=== PATIENT | female | born 1955 | race Caucasian/White ===

== ENCOUNTER 2020-03-19 11:28 | Outpatient (REF) | payer BC, SELFPAY | END 2020-03-19 11:29 | disposition home or self-care (01) | LOC: HO.LAB 11:28 | PROVIDERS: PCP Internal Medicine; Visit Provider Internal Medicine | DX: Z20.828 Contact with and (suspected) exposure to other viral communicable diseases (principal) | CPT/HCPCS: C9803; U0003 ==

== ENCOUNTER 2020-05-26 10:41 | Outpatient (REF) | payer BC, SELFPAY ==
--- NOTE | ~2020-05-26 | MM_ITS ---
EXAMINATION: BONE DENSITOMETRY CLINICAL INDICATION: Age-related osteoporosis without current pathological fracture. COMPARISON: Baseline BD dated 05/13/2014. TECHNIQUE: Using a [employer] DXA System (software version: 13.1) manufactured by [employer], dual-energy x-ray absorptiometry was performed of the lumbar spine and left hip. The images are of good technical quality. Summary results are attached. FINDINGS: AP SPINE L1-L4: Current: BMD 0.953 g/cm2, Z-score -0.3, T-score -1.9, osteopenia, 1.0% increase from baseline (<5% change is not significant). Baseline: BMD 0.944 g/cm2. LEFT FEMUR, NECK: Current: BMD 0.659 g/cm2, Z-score -1.2, T-score -2.7, osteoporosis. Baseline: BMD 0.736 g/cm2. LEFT FEMUR, TOTAL: Current: BMD 0.660 g/cm2, Z-score -1.5, T-score -2.8, osteoporosis, 5.2% decrease from baseline (<5% change is not significant). Baseline: BMD 0.696 g/cm2. IDENTIFIED RISK FACTORS: Height loss, low calcium intake, family history (parental hip fracture). Early menopause, secondary osteoporosis, hysterectomy, bilateral oophorectomy. HISTORY OF FRACTURE: None listed. MEDICATIONS: Vitamin D. MM/XR DEXA axial skeleton IMPRESSION: 1. DIAGNOSIS: Osteoporosis based on the lowest T-score value of -2.8 in the total femur applying World Health Organization criteria. 2. 10-YEAR FRACTURE RISK PREDICTION, FRAX: Major osteoporotic fracture (clinical spine, forearm, hip or shoulder) 23.3%. Hip fracture 3.5%. 3. Treatment Recommendations: NOF guidelines recommend consideration for treatment in postmenopausal women and men age 50 and older presenting with the following: -A hip or vertebral (clinical or morphometric) fracture. -T-score less than or equal to -2.5 at the femoral neck or spine after appropriate evaluation to exclude secondary causes. -Low bone mass at the hip or spine and a 10-year fracture probability by FRAX of greater than or equal to 3% for hip fracture or greater than or equal to 20% for major osteoporotic fracture based on the [place] adapted WHO algorithm. 4. Other Recommendations: All treatment decisions require clinical judgment and consideration of individual patient factors, including patient preferences, comorbidities, previous drug use, risk factors not captured in the FRAX model (e.g. frailty, falls, vitamin D deficiency, increased bone turnover, interval significant decline in bone density) and possible under or overestimation of fracture risk by FRAX. Additional medical evaluation for secondary cause of low bone mineral density may be appropriate. FUTURE SCAN RECOMMENDATION: People with diagnosed cases of osteoporosis or at high risk for fracture should have regular bone mineral density tests. For patients eligible for Medicare, routine testing is allowed once every 2 years. The testing frequency can be increased to one year for patients who have rapidly progressing disease, those who are receiving or discontinuing medical therapy to restore bone mass, or have additional risk factors.
== END 2020-05-26 10:42 | disposition home or self-care (01) ==
LOC: HO.MAMMO 10:41
PROVIDERS: PCP Internal Medicine; Visit Provider Internal Medicine
DX: M81.0 Age-related osteoporosis without current pathological fracture (principal); E58 Dietary calcium deficiency; Z78.0 Asymptomatic menopausal state; Z90.710 Acquired absence of both cervix and uterus; Z90.722 Acquired absence of ovaries, bilateral
CPT/HCPCS: 77080

== ENCOUNTER 2020-10-27 13:53 | Outpatient (REF) | payer BC, SELFPAY ==
--- NOTE | ~2020-10-27 | XR_ITS ---
EXAMINATION: XR KNEE, RIGHT CLINICAL INFORMATION: Pain in the right knee. COMPARISON: None TECHNIQUE: Three views of the right knee. FINDINGS: Likely postsurgical change of the anterior tibial tubercle with defined defect of the anterior cortex with a osteosclerotic margins. No acute abnormality. No fracture or dislocation. The patellofemoral and the femoral tibial joints are normal. There is no joint effusion. There are no soft tissue calcifications. XR/XR knee RT 2V IMPRESSION: Normal right knee.
--- NOTE | ~2020-10-27 | XR_ITS ---
EXAMINATION: XR CHEST CLINICAL INFORMATION: Mild intermittent asthma COMPARISON: None TECHNIQUE: 2 views of the chest were obtained. FINDINGS: No significant abnormality is noted involving the heart, lungs, mediastinum, bony thorax or soft tissues. XR/XR chest 2V IMPRESSION: Unremarkable examination.
[2020-10-27 15:11] LABS: MANUAL DIFF FLAG NO
[2020-10-27 15:18] LABS: Basophils Percent Auto 0.5 % (0-2); Eosinophils Absolute Auto 0.1 X10*3/uL (0.0-0.4); Eosinophils Percent Auto 1.1 % (0-4); Hematocrit 41.2 % (37-47); Hemoglobin 13.6 g/dl (12.0-16.0); Imm Gran Abs Auto 0.01 X10*3/uL (0.00-0.03); Imm Gran Pct Auto 0.2 % (0.0-0.4); Lymphocytes Absolute Auto 1.5 X10*3/uL (1.2-4.9); Lymphocytes Percent Auto 27.3 % (20-40); Mean Corpuscular Hemoglobin 32.4 pg (27.0-33.0); Mean Corpuscular Volume 98.1 fL (80-98); Mean Platelet Volume 11.2 fL (9.4-12.3); Monocytes Absolute Auto 0.5 X10*3/uL (0.1-1.2); Monocytes Percent Auto 8.5 % (2-11); Neutrophils Absolute Auto 3.5 X10*3/uL (2.0-8.3); Neutrophils Percent Auto 62.4 % (45-73); Platelet Count 285 X10*3/uL (160-400); Red Cell Distribution Width 12.1 % (11.0-16.0); White Blood Count 5.6 X10*3/uL (4.8-10.8)
[2020-10-27 15:27] LABS: Glucose Urine UA NEG (NEG); Leukocyte Esterase Urine NEG (NEG); Nitrite Urine NEG (NEG); Specific Gravity - Urine >= 1.030 (1.005-1.025); Urine Blood NEG (NEG); Urine Ketones NEG (NEG); Urine Protein NEG (NEG-TRACE)
[2020-10-27 15:33] LABS: Appearance Urine HAZY; Color Urine YELLOW
[2020-10-27 15:39] LABS: Bacteria Urine TRACE /LPF; Mucus Urine TRACE /LPF; RBC Urine 0 /HPF (0); Squamous Epithelial Cell Urine 1+ /LPF; WBC Urine 0 /HPF (0-4)
[2020-10-27 15:40] LABS: Urine Talc Crystals 3+ /LPF
[2020-10-27 16:08] LABS: Folate 11.5 ng/mL (> or = 4.0); Vitamin B12 274 pg/mL (200-900)
== END 2020-10-27 13:54 | disposition home or self-care (01) ==
LOC: HO.LAB 13:53
PROVIDERS: PCP Internal Medicine; Visit Provider Internal Medicine
DX: J45.20 Mild intermittent asthma, uncomplicated (principal); M25.561 Pain in right knee; M81.0 Age-related osteoporosis without current pathological fracture; E78.00 Pure hypercholesterolemia, unspecified
CPT/HCPCS: 36415; 71046; 73560; 81001; 82607; 82746; 85025

== ENCOUNTER 2020-11-06 08:38 | Outpatient (REF) | payer BC, SELFPAY ==
[2020-11-06 10:02] LABS: Alanine Aminotransferase 19 U/L (0-31); Albumin Level 4.4 g/dL (3.5-5.0); Alkaline Phosphatase 78 U/L (39-117); Anion Gap 14 (12-20); Aspartate Amino Transferase 18 U/L (5-31); Bilirubin Total 0.7 mg/dL (0.0-1.0); Blood Urea Nitrogen 18 mg/dL (9-16); Carbon Dioxide 29 mmol/L (22-29); Chloride 106 mmol/L (96-108); Cholesterol 212 mg/dL; Estimated Glomerular Filt Rate > 60; Glucose Random 88 mg/dL (60-115); HDL Cholesterol 80 mg/dL; LDL Cholesterol Calculated 122 mg/dl; Potassium 4.5 mmol/L (3.3-5.1); Sodium 144 mmol/L (135-145); Total Protein 6.5 g/dL (6.5-8.0); Triglycerides 54 mg/dL
[2020-11-06 10:23] LABS: Free T4 (Free Thyroxine) 0.89 ng/dL (0.71-1.85); Thyroid Stimulating Hormone 0.58 uIU/mL (0.32-4.0); Vitamin D 25-OH Total 78.8 ng/mL (>30)
== END 2020-11-06 08:39 | disposition home or self-care (01) ==
LOC: HO.LAB 08:38
PROVIDERS: PCP Internal Medicine; Visit Provider Internal Medicine
DX: M81.0 Age-related osteoporosis without current pathological fracture (principal); E78.00 Pure hypercholesterolemia, unspecified
CPT/HCPCS: 36415; 80053; 80061; 82306; 84439; 84443

== ENCOUNTER 2020-12-01 12:30 | Outpatient (REF) | payer BC, SELFPAY ==
--- NOTE | 2020-12-01 | PFT_ITS ---
FLOWS: FEV1 90% of predicted at 2.46 L. FVC 88% of predicted at 3.14 L. FEV1 to FVC ratio of 0.78. Positive bronchodilator response. LUNG VOLUMES: Total lung capacity 102% of predicted at 5.63 L. Residual volume 123% of predicted at 2.75 L. Slow vital capacity 88% of predicted at 2.89 L. Expiratory reserve volume 89% of predicted at 0.82 L. Diffusion capacity is moderately decreased. IMPRESSION: No obstructive or restrictive ventilatory defect. Positive bronchodilator response. Increased residual volume suggests underlying air trapping. Decreased diffusion capacity suggests emphysema. MD VISHNU Sparks/MODL / [id number]
== END 2020-12-01 12:31 | disposition home or self-care (01) ==
LOC: HO.RESP 12:30
PROVIDERS: PCP Internal Medicine; Visit Provider Internal Medicine
DX: J45.20 Mild intermittent asthma, uncomplicated (principal)
CPT/HCPCS: 94060; 94727; 94729

== ENCOUNTER 2021-04-22 12:11 | Outpatient (REF) | payer BC, SELFPAY ==
--- NOTE | ~2021-04-22 | XR_ITS ---
EXAMINATION: XR CHEST CLINICAL INFORMATION: COPD COMPARISON: 10/27/2020 TECHNIQUE: 2 views of the chest were obtained. FINDINGS: Lungs are hyperinflated. No parenchymal consolidation. No pleural effusion. No pneumothorax. Cardiomediastinal silhouette and pulmonary vascularity are within normal limits. No acute osseous abnormalities. XR/XR chest 2V IMPRESSION: No acute findings. Hyperinflated lungs suggestive of emphysema/COPD.
== END 2021-04-22 12:12 | disposition home or self-care (01) ==
LOC: HO.XRAY 12:11
PROVIDERS: PCP Internal Medicine; Visit Provider Internal Medicine
DX: J44.9 Chronic obstructive pulmonary disease, unspecified (principal)
CPT/HCPCS: 71046

== ENCOUNTER 2021-11-08 08:33 | Outpatient (REF) | payer MEDICARE, SELFPAY ==
[2021-11-08 10:39] LABS: MANUAL DIFF FLAG NO
[2021-11-08 10:46] LABS: Basophils Percent Auto 0.9 % (0-2); Eosinophils Absolute Auto 0.2 X10*3/uL (0.0-0.4); Eosinophils Percent Auto 4.6 % (0-4); Hematocrit 40.5 % (37.0-47.0); Hemoglobin 13.5 g/dl (12.0-16.0); Imm Gran Abs Auto 0.01 X10*3/uL (0.00-0.03); Imm Gran Pct Auto 0.2 % (0.0-0.4); Lymphocytes Absolute Auto 1.4 X10*3/uL (1.2-4.9); Lymphocytes Percent Auto 30.1 % (20-40); Mean Corpuscular HGB Conc 33.3 g/dl (31.0-35.0); Mean Corpuscular Hemoglobin 32.5 pg (27.0-33.0); Mean Corpuscular Volume 97.6 fL (80.0-98.0); Mean Platelet Volume 11.7 fL (9.4-12.3); Monocytes Absolute Auto 0.4 X10*3/uL (0.1-1.2); Monocytes Percent Auto 7.9 % (2-11); Neutrophils Absolute Auto 2.6 x10*3/uL (2.0-8.3); Neutrophils Percent Auto 56.3 % (45-73); Platelet Count 250 X10*3/uL (160-400); Red Blood Count 4.15 X10*6/uL (4.20-5.50); Red Cell Distribution Width 12.2 % (11.0-16.0); White Blood Count 4.6 X10*3/uL (4.8-10.8)
[2021-11-08 11:03] LABS: Alanine Aminotransferase 15 U/L (0-31); Albumin Level 4.1 g/dL (3.5-5.0); Alkaline Phosphatase 77 U/L (39-117); Anion Gap 13 (12-20); Aspartate Amino Transferase 17 U/L (5-31); Bilirubin Total 0.8 mg/dL (0.0-1.0); Blood Urea Nitrogen 25 mg/dL (9-16); Calcium 9.4 mg/dL (8.4-10.2); Carbon Dioxide 29 mmol/L (22-29); Chloride 105 mmol/L (96-108); Cholesterol 191 mg/dL; Estimated Glomerular Filt Rate > 60; Glucose Random 98 mg/dL (60-115); HDL Cholesterol 76 mg/dL; LDL Cholesterol Calculated 105 mg/dl; Potassium 4.5 mmol/L (3.3-5.1); Sodium 142 mmol/L (135-145); Total Protein 6.4 g/dL (6.5-8.0); Triglycerides 54 mg/dL
[2021-11-08 11:16] LABS: Free T4 (Free Thyroxine) 0.82 ng/dL (0.71-1.85); Thyroid Stimulating Hormone 0.87 uIU/mL (0.32-4.0); Vitamin D 25-OH Total 62.7 ng/mL (>30)
[2021-11-08 11:29] LABS: Folate 13.4 ng/mL (> or = 4.0); Vitamin B12 275 pg/mL (200-900)
== END 2021-11-08 08:34 | disposition home or self-care (01) ==
LOC: HO.10HDL 08:33
PROVIDERS: Visit Provider Internal Medicine
DX: J44.9 Chronic obstructive pulmonary disease, unspecified (principal); E78.00 Pure hypercholesterolemia, unspecified
CPT/HCPCS: 36415; 80053; 80061; 82306; 82607; 82746; 84439; 84443; 85025

== ENCOUNTER 2021-12-01 13:48 | Outpatient (REF) | payer MEDICARE, SELFPAY ==
--- NOTE | ~2021-12-01 | XR_ITS ---
EXAMINATION: XR LUMBOSACRAL SPINE CLINICAL INFORMATION: Low back pain COMPARISON: Previous x-ray most recent October 2019 TECHNIQUE: Three views of the lumbosacral spine. FINDINGS: Bone alignment is normal. No fracture or dislocation is seen. There is mild degenerative spondylosis at L2-L3. Disc spaces are normal. There is lower lumbar spine facet arthritis. There is evidence of atherosclerotic disease. XR/XR lumbar spine 2-3V IMPRESSION: Degenerative changes.
== END 2021-12-01 13:49 | disposition home or self-care (01) ==
LOC: HO.XRAY 13:48
PROVIDERS: PCP Internal Medicine; Visit Provider Internal Medicine
DX: M54.50 Low back pain, unspecified (principal)
CPT/HCPCS: 72100

== ENCOUNTER 2022-06-27 10:39 | Outpatient (REF) | payer MEDICARE, SELFPAY ==
--- NOTE | ~2022-06-27 | MM_ITS ---
EXAMINATION: BONE DENSITOMETRY CLINICAL INDICATION: Age-related osteoporosis without current pathological fracture. COMPARISON: Previous BD dated 05/26/2020 and baseline BD dated 05/13/2014. TECHNIQUE: Using a [employer] DXA System (software version: 13.1) manufactured by [employer], dual-energy x-ray absorptiometry was performed of the lumbar spine and left hip. The images are of good technical quality. Summary results are attached. FINDINGS: AP SPINE L1-L4: Current: BMD 0.962 g/cm2, Z-score 0.0, T-score -1.8, osteopenia, 0.9% increase from previous, 1.9% increase from baseline (<5% change is not significant). Prior: BMD 0.953 g/cm2. Baseline: BMD 0.944 g/cm2. LEFT FEMUR, NECK: Current: BMD 0.707 g/cm2, Z-score -0.7, T-score -2.4, osteopenia. Prior: BMD 0.659 g/cm2. Baseline: BMD 0.736 g/cm2. LEFT FEMUR, TOTAL: Current: BMD 0.660 g/cm2, Z-score -1.4, T-score -2.8, osteoporosis, 0.0% no change from previous, 5.2% decrease from baseline (<5% change is not significant). Prior: BMD 0.660 g/cm2. Baseline: BMD 0.696 g/cm2. IDENTIFIED RISK FACTORS: Early menopause, secondary osteoporosis, bilateral oophorectomy, hysterectomy, osteoporosis. HISTORY OF FRACTURE: None listed. MEDICATIONS: Vitamin D, ERT/SERMS. MM/XR DEXA axial skeleton IMPRESSION: 1. DIAGNOSIS: Osteoporosis based on the lowest T-score value of -2.8 in the total femur applying World Health Organization criteria. 2. 10-YEAR FRACTURE RISK PREDICTION, FRAX: According to the guidelines, FRAX calculation should only be performed on patients in the osteopenia bone density category. Therefore, FRAX was not performed on this patient. 3. Treatment Recommendations: NOF guidelines recommend consideration for treatment in postmenopausal women and men age 50 and older presenting with the following: -A hip or vertebral (clinical or morphometric) fracture. -T-score less than or equal to -2.5 at the femoral neck or spine after appropriate evaluation to exclude secondary causes. -Low bone mass at the hip or spine and a 10-year fracture probability by FRAX of greater than or equal to 3% for hip fracture or greater than or equal to 20% for major osteoporotic fracture based on the [place] adapted WHO algorithm. 4. Other Recommendations: All treatment decisions require clinical judgment and consideration of individual patient factors, including patient preferences, comorbidities, previous drug use, risk factors not captured in the FRAX model (e.g. frailty, falls, vitamin D deficiency, increased bone turnover, interval significant decline in bone density) and possible under or overestimation of fracture risk by FRAX. Additional medical evaluation for secondary cause of low bone mineral density may be appropriate. FUTURE SCAN RECOMMENDATION: People with diagnosed cases of osteoporosis or at high risk for fracture should have regular bone mineral density tests. For patients eligible for Medicare, routine testing is allowed once every 2 years. The testing frequency can be increased to one year for patients who have rapidly progressing disease, those who are receiving or discontinuing medical therapy to restore bone mass, or have additional risk factors.
== END 2022-06-27 10:40 | disposition home or self-care (01) ==
LOC: HO.MAMMO 10:39
PROVIDERS: Visit Provider Internal Medicine
DX: Z13.820 Encounter for screening for osteoporosis (principal); M81.0 Age-related osteoporosis without current pathological fracture; Z78.0 Asymptomatic menopausal state
CPT/HCPCS: 77080

== ENCOUNTER 2022-08-05 11:00 | Outpatient (RCR) | payer MEDICARE, SELFPAY ==
--- NOTE | 2022-07-06 11:47 | MHC.PT.EP ---
[facility] [place] Office [place] Office [place] Office [address] Juancarlos Joaquin [address] [phone] F: [phone] F: [phone] F: [phone] F: [phone] Physical Therapy Plan of Care Date of Evaluation: Date of Surgery: NA Diagnosis: Low back pain Assessment: Gillian is a 66 year old female who is referred to PT for low back pain . She reports of having h/o chronic back pain which has gotten worse recently over the last 1 year. She also has h/o frequent falls but has not had any fractures. On PT examination she reports of having 6/10 pain with standing, walking and SL, pain in low back and B LE, no TTP, decreased lumbar ROM, decreased core and B LE strength, altered posture and gait. She lives with her and is independent with all ADLS but takes rest beaks. She is retired. She would benefit from skilled PT to address the aforementioned impairments and improve tolerance to functional activities. Frequency and Duration: The patient will be seen 2/week for 5 weeks Short Term Goals: 1. Pt will have 50% decrease in pain which will enable her to tolerate sitting for more than 1 hour and SL positions in 2 weeks. 2. Pt will present with all trunk ROM WFL which will enable her to dress her lower body without pain in 3 weeks. 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 Pt will demonstrate an increase in muscle strength in B LE and core which will enable to tolerate standing and walking for an hour with a pain no more than 2/10 in 5 weeks. 2. Pt will be independent with [facility] for symptom management and maintenance following d/c in 6 weeks. Treatment Plan: Modalities to reduce pain, spasms and effusion. Manual therapy to restore motion and function. Therapeutic exercise to improve strength and flexibility. Neuromuscular re-education for posture and balance. Therapeutic activities to return to functional activities of daily living. Electronically signed by: Uzma Roberson PT DPT Please sign and return to therapist. Thank you for your referral.
--- NOTE | 2022-08-17 09:43 | MHC.PT.DC ---
[facility] [place] Office [place] Office [place] Office [address] Juancarlos Joaquin [address] [phone] F: [phone] F: [phone] F: [phone] F: [phone] Physical Therapy Discharge Report Diagnosis: Low back pain Date of Surgery: NA Date of Evaluation: 07/06/22 Date of Discharge: 08/17/22 Treatments to Date: 9 Cancellations to Date: 0 No Shows to Date: 0 Discharge Status: Achieved Goals Improved Function Independent with HEP Discharge Summary: Gillian has completed 9 PT visits. She has achieved all goals set for her and independent with all HEP. She is therefore being d/c from PT. Electronically signed by: Uzma Roberson, PT DPT Please sign and return to therapist. Thank you for your referral.
== END 2022-08-17 09:44 | disposition home or self-care (01) ==
LOC: HO.PT 11:00
PROVIDERS: PCP Internal Medicine; Visit Provider Internal Medicine
DX: M54.50 Low back pain, unspecified (principal)
CPT/HCPCS: 97110; 97112; 97161

== ENCOUNTER 2022-11-22 08:44 | Outpatient (REF) | payer OTHER, SELFPAY ==
[2022-11-22 10:58] LABS: MANUAL DIFF FLAG NO
[2022-11-22 11:03] LABS: Basophils Percent Auto 0.8 % (0-2); Eosinophils Absolute Auto 0.1 X10*3/uL (0.0-0.4); Eosinophils Percent Auto 2.6 % (0-4); Hematocrit 41.4 % (37.0-47.0); Hemoglobin 13.6 g/dl (12.0-16.0); Imm Gran Abs Auto 0.02 X10*3/uL (0.00-0.03); Imm Gran Pct Auto 0.4 % (0.0-0.4); Lymphocytes Absolute Auto 1.5 X10*3/uL (1.2-4.9); Lymphocytes Percent Auto 29.7 % (20-40); Mean Corpuscular HGB Conc 32.9 g/dl (31.0-35.0); Mean Corpuscular Hemoglobin 32.8 pg (27.0-33.0); Mean Corpuscular Volume 99.8 fL (80.0-98.0); Mean Platelet Volume 11.4 fL (9.4-12.3); Monocytes Absolute Auto 0.3 X10*3/uL (0.1-1.2); Monocytes Percent Auto 6.2 % (2-11); Neutrophils Percent Auto 60.3 % (45-73); Platelet Count 289 X10*3/uL (160-400); Red Blood Count 4.15 X10*6/uL (4.20-5.50); Red Cell Distribution Width 12.5 % (11.0-16.0)
[2022-11-22 11:26] LABS: Alanine Aminotransferase 14 U/L (0-31); Albumin Level 4.2 g/dL (3.5-5.0); Alkaline Phosphatase 76 U/L (39-117); Anion Gap 10 (12-20); Aspartate Amino Transferase 18 U/L (5-31); Bilirubin Total 0.7 mg/dL (0.0-1.0); Blood Urea Nitrogen 20 mg/dL (9-16); Calcium 9.4 mg/dL (8.4-10.2); Carbon Dioxide 30 mmol/L (22-29); Chloride 107 mmol/L (96-108); Estimated Glomerular Filt Rate > 60; Glucose Random 90 mg/dL (60-115); Iron 123 mcg/dL (30-160); Percent Iron Saturation 48 % (15-50); Potassium 4.2 mmol/L (3.3-5.1); Sodium 143 mmol/L (135-145); Total Iron Binding Capacity 256 mcg/dL (228-428); Total Protein 6.6 g/dL (6.5-8.0); Unsaturated Iron Binding 133 ug/dL
[2022-11-22 11:45] LABS: Free T4 (Free Thyroxine) 0.88 ng/dL (0.71-1.85); Thyroid Stimulating Hormone 0.87 uIU/mL (0.32-4.0); Vitamin D 25-OH Total 77.5 ng/mL (>30)
[2022-11-22 11:56] LABS: Folate 13.7 ng/mL (> or = 4.0); Vitamin B12 623 pg/mL (200-900)
== END 2022-11-22 08:45 | disposition home or self-care (01) ==
LOC: HO.10HDL 08:44
PROVIDERS: Visit Provider Internal Medicine
DX: F32.9 Major depressive disorder, single episode, unspecified (principal); M81.0 Age-related osteoporosis without current pathological fracture
CPT/HCPCS: 36415; 80053; 82306; 82607; 82746; 83540; 84439; 84443; 85025

== ENCOUNTER 2022-11-25 11:29 | Outpatient (AMB) | payer OTHER, SELFPAY ==
[2022-11-25 11:32] VITALS: BP 120/62; PULSE 63; O2SAT 99; BMI 20.4
--- NOTE | 2022-11-25 11:32 | A.OFFPC_ITS ---
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 Required: No Allergies No Known Allergies Allergy (Verified 11/25/22 11:33) Tobacco use date assessed: 11/25/22 Fall risk assessment: No Falls in past year Last assessed Fall Risk: 11/25/22 Dental Screening Dental Screen Date: 11/25/22 Did you have a dental visit in the last 12 months?: Yes Did you have a dental problem in the last 6 months where you did not have access to dental care?: No Was dental information given to patient?: Patient has dentist [facility] Medical History (Updated 11/25/22 @ 12:16 by Olga Lidia Olivo MD) Asthma Lumbar degenerative disc disease Plantar wart Breast cancer Depression Surgical History History of foot surgery History of knee surgery History of right mastectomy History of total abdominal hysterectomy and bilateral salpingo-oophorectomy Family History (Updated 05/24/22 @ 12:47 by Kirstin Donis [facility]) Father Dementia Mother Breast cancer COPD (chronic obstructive pulmonary disease) Brother Depression Substance abuse Sister Depression Other Mental illness in member of household Substance abuse in family Social History (Updated 05/24/22 @ 13:09 by Olga Lidia Olivo MD) Housing: Apartment Alcohol intake: current Alcohol intake frequency: a few times a week Alcohol type: hard liquor Patient Tobacco Use Status: Tobacco use Unknown Tobacco use type: Cigarette Years Smoked: 1997 quit e-Cigarette/Vaping Use: Never Used Second Hand Smoke Exposure: No service: No Current occupational status: retired Cognitive needs: No Hearing needs: No Vision needs: Yes Questionnaire Thrive Questionnaire Date Thrive assessed: 05/24/22 AUDIT C Alcohol Use Questionnaire (AUDIT-C) 1. How often do you have a drink containing alcohol?: 4 or more times a week 2. How many drinks containing alcohol do you have on a typical day when you are drinking?: 1 or 2 3. How often do you have six or more drinks on one occasion?: Less than monthly Total Score: 5 KAREN-7 AMB Questionnaire KAREN-7 Date KAREN - 7 assessed: 05/24/22 Source: Developed by Drs. Prasanna Christine, Janina Esquivel, Curtis Wilkinson and colleagues, with an educational jayjay from [employer]. Physical exam (Primary Care) Vital Signs: Last Vital Signs Pulse 63 11/25/22 11:32 BP 120/62 11/25/22 11:32 Pulse Ox 99 11/25/22 11:32 Oxygen Delivery Method Room Air 11/25/22 11:32 BMI result Body Mass Index 20.4 Tobacco/Smoking Status: Tobacco use Status Tobacco use date assessed 11/25/22 11/25/22 11:35 Patient Tobacco Use Status Tobacco use Unknown 11/25/22 11:36 Tobacco use type Cigarette 11/25/22 11:35 e-Cigarette/Vaping Use Never Used 11/25/22 11:35 Thrive Assessment: Date of Thrive Assessment Date Thrive assessed 05/24/22 11/25/22 11:35 Assessment and Plan Assessment & Plan (1) Osteoporosis: Comment: May 2020, June 2022 Code(s): M81.0 - Age-related osteoporosis without current pathological fracture Qualifiers: Osteoporosis type: age-related Presence of current pathological fracture: without current pathological fracture Qualified Code(s): M81.0 - Age- related osteoporosis without current pathological fracture Plan: Bone density stable (2) Breast cancer: Comment: Right mastectomy 2007 [facility] February 2022 mammogram Code(s): C50.919 - Malignant neoplasm of unspecified site of unspecified female breast Qualifiers: Breast location: unspecified site of breast Estrogen receptor status: unspecified Patient sex: female Laterality: right Qualified Code(s): C50.911 - Malignant neoplasm of unspecified site of right female breast Plan: February mammogram. (3) Depression: Comment: Dr. Bhavna chavira Code(s): F32.9 - Major depressive disorder, single episode, unspecified Plan: Continue to follow-up with counseling and therapy (4) COPD (chronic obstructive pulmonary disease): Code(s): J44.9 - Chronic obstructive pulmonary disease, unspecified Plan: Patient on albuterol and use as needed. (5) Leg weakness: Code(s): R29.898 - Other symptoms and signs involving the musculoskeletal system Orders: Orders NE electromyogram (EMG) Today R29.898 - Other symptoms and signs involving the musculoskeletal system XR lumbar spine 2-3V Today R29.898 - Other symptoms and signs involving the musculoskeletal system NE nerve conduction velocity Today R29.898 - Other symptoms and signs involving the musculoskeletal system Erythrocyte Sedimentation Rate Today R29.898 - Other symptoms and signs involving the musculoskeletal system C Reactive Protein Today R29.898 - Other symptoms and signs involving the musculoskeletal system Coding Level of Care Code Est Pt Level 4 (07091) Diagnoses Age-related osteoporosis without current pathological fracture M81.0 Osteoporosis type: age-related Presence of current pathological fracture: without current pathological fracture Malignant neoplasm of right female breast, unspecified estrogen receptor status, unspecified site of breast C50.911 Breast location: unspecified site of breast Estrogen receptor status: unspecified Patient sex: female Laterality: right Depression F32.9 COPD (chronic obstructive pulmonary disease) J44.9 Leg weakness R29.898
== END 2022-11-25 12:22 | disposition home or self-care (01) ==
PROVIDERS: PCP Internal Medicine; Visit Provider Internal Medicine
DX: M81.0 Age-related osteoporosis without current pathological fracture (principal); C50.911 Malignant neoplasm of unspecified site of right female breast; F33.9 Major depressive disorder, recurrent, unspecified; J44.9 Chronic obstructive pulmonary disease, unspecified; R29.898 Other symptoms and signs involving the musculoskeletal system
CPT/HCPCS: 99214

== ENCOUNTER 2022-12-22 13:57 | Outpatient (REF) | payer OTHER, SELFPAY ==
--- NOTE | ~2022-12-22 | XR_ITS ---
EXAMINATION: XR LUMBOSACRAL SPINE CLINICAL INFORMATION: Other symptoms and signs involving the musculoskeletal system. COMPARISON: Radiographs dated 12/01/2021. TECHNIQUE: AP and lateral views of the lumbar spine and lateral view of the lumbosacral junction. FINDINGS: There is bony demineralization. Vertebral body heights and alignment are normal. The lumbar disc spaces are well-maintained. No acute fracture or spondylolisthesis is seen. There is multi-level mild lumbar spondylosis. The posterior elements are intact. There are aortoiliac atherosclerotic calcifications. XR/XR lumbar spine 2-3V IMPRESSION: 1. No acute fracture or spondylolisthesis is seen. 2. The lumbar disc spaces are well-maintained. 3. There is multi-level mild lumbar spondylosis.
[2022-12-22 15:24] LABS: C Reactive Protein 2.71 mg/dL (< or = 0.50)
[2022-12-22 15:54] LABS: Erythrocyte Sedimentation Rate 6 MM/HR (0-20)
== END 2022-12-22 13:58 | disposition home or self-care (01) ==
LOC: HO.NEURO 13:57
PROVIDERS: PCP Internal Medicine; Visit Provider Internal Medicine
DX: R29.898 Other symptoms and signs involving the musculoskeletal system (principal)
CPT/HCPCS: 36415; 72100; 85652; 86140; 95886; 95910

== ENCOUNTER → 2022-12-22 14:05 | Outpatient (BNV) | payer OTHER, SELFPAY | PROVIDERS: PCP Internal Medicine; Visit Provider Physical Medicine & Rehabilitation | DX: M54.17 Radiculopathy, lumbosacral region (principal) | CPT/HCPCS: 95886; 95910 ==

== ENCOUNTER 2023-02-01 08:45 | Outpatient (REF) | payer OTHER, SELFPAY ==
--- NOTE | ~2023-02-01 | MR_ITS ---
EXAMINATION: MR LUMBAR SPINE WITHOUT CONTRAST CLINICAL INFORMATION: Radiculopathy COMPARISON: Lumbar radiographs 12/22/2022 TECHNIQUE: MRI of the lumbar spine was obtained using routine sequences without contrast. FINDINGS: Straightening of the normal lumbar lordosis. No significant spondylolisthesis. Vertebral body heights are maintained. Diffusely somewhat heterogeneous marrow signal without suspicious osseous lesion. Multilevel disc desiccation with mild disc height loss most pronounced at L2-L3. Type I Modic endplate change eccentric to the left at L2-L3. Ventral disc osteophyte at L2-L3. Level by level detail as follows: L1-L2: Annular disc bulge with right central annular fissure and mild bilateral facet arthrosis. No spinal canal or neural foraminal stenosis. L2-L3: Annular disc bulge and mild bilateral facet arthrosis with ligamentum flavum thickening. Trace bilateral facet joint effusions. No spinal canal or neural foraminal stenosis. L3-L4: Annular disc bulge with right foraminal annular fissure and mild bilateral facet arthrosis with ligamentum flavum thickening and small bilateral facet joint effusions. No spinal canal stenosis. Minimal right without significant left neural foraminal encroachment. L4-L5: Annular disc bulge with right greater than left foraminal/lateral disc protrusions with associated annular fissuring and mild bilateral facet arthrosis with ligamentum flavum thickening. No spinal canal stenosis. Mild bilateral neural foraminal stenosis. L5-S1: Left greater than right facet arthrosis without spinal canal or neural foraminal stenosis. The conus medullaris terminates at the level of L1-L2. The distal spinal cord is normal in appearance. . No epidural fluid collection, hematoma, or mass. There is to moderate fatty atrophy of the paraspinal musculature. Partially imaged hepatomegaly. The abdominal aorta is of normal contour and caliber. MR/MR lumbar spine wo con IMPRESSION: 1. Mild lumbar spondylosis without evidence of high-grade spinal canal or neural foraminal stenosis at any level in the lumbar spine. 2. Multilevel annular fissures in the lumbar spine. 3. Partially imaged hepatomegaly.
== END 2023-02-01 08:46 | disposition home or self-care (01) ==
LOC: HO.MRI 08:45
PROVIDERS: PCP Internal Medicine; Visit Provider Internal Medicine
DX: M54.16 Radiculopathy, lumbar region (principal)
CPT/HCPCS: 72148

== ENCOUNTER 2023-03-17 09:41 | Outpatient (AMB) | payer OTHER, SELFPAY ==
[2023-03-17 09:51] VITALS: BP 120/78; PULSE 63; O2SAT 98
--- NOTE | 2023-03-17 09:51 | MHC.PC.OV ---
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 Last seen in November 2022. Up-to-date with bone density and colonoscopy. Patient complains of leg weakness and an MRI done showing mild lumbar spondylosis without evidence of spinal canal or neural foraminal stenosis multi level annual fissures in the lumbar spine and noted also hepatomegaly. Nerve conduction test showing chronic left L5-S1 radiculopathy but there is no evidence of peroneal neuropathy tibial neuropathy lumbosacral plexopathy or peripheral neuropathy. [facility] Medical History (Updated 03/17/23 @ 10:36 by Olga Lidia Olivo MD) Asthma Lumbar degenerative disc disease Plantar wart Breast cancer Depression Surgical History History of foot surgery History of knee surgery History of right mastectomy History of total abdominal hysterectomy and bilateral salpingo-oophorectomy Family History (Updated 05/24/22 @ 12:47 by Kirstin Donis CMA) Father Dementia Mother Breast cancer COPD (chronic obstructive pulmonary disease) Brother Depression Substance abuse Sister Depression Other Mental illness in member of household Substance abuse in family Social History (Updated 05/24/22 @ 13:09 by Olga Lidia Olivo MD) Housing: Apartment Alcohol intake: current Alcohol intake frequency: a few times a week Alcohol type: hard liquor Patient Tobacco Use Status: Tobacco use Unknown Tobacco use type: Cigarette Years Smoked: 1997 quit e-Cigarette/Vaping Use: Never Used Second Hand Smoke Exposure: No service: No Current occupational status: retired Cognitive needs: No Hearing needs: No Vision needs: Yes Questionnaire Thrive Questionnaire Date Thrive assessed: 05/24/22 AUDIT C Alcohol Use Questionnaire (AUDIT-C) 1. How often do you have a drink containing alcohol?: 4 or more times a week 2. How many drinks containing alcohol do you have on a typical day when you are drinking?: 1 or 2 3. How often do you have six or more drinks on one occasion?: Less than monthly Total Score: 5 KAREN-7 AMB Questionnaire KAREN-7 Date KAREN - 7 assessed: 05/24/22 Source: Developed by Drs. Prasanna Christine, Janina Esquivel, Curtis Wilkinson and colleagues, with an educational jayjay from [employer]. Physical exam (Primary Care) Vital Signs: Last Vital Signs Pulse 63 03/17/23 09:51 BP 120/78 03/17/23 09:51 Pulse Ox 98 03/17/23 09:51 Oxygen Delivery Method Room Air 03/17/23 09:51 BMI result Body Mass Index 20.0 Tobacco/Smoking Status: Tobacco use Status Tobacco use date assessed 03/17/23 03/17/23 09:56 Patient Tobacco Use Status Tobacco use Unknown 03/17/23 09:56 Tobacco use type Cigarette 03/17/23 09:56 e-Cigarette/Vaping Use Never Used 03/17/23 09:56 Thrive Assessment: Date of Thrive Assessment Date Thrive assessed 05/24/22 03/17/23 09:56 Const General: alert; No acute distress Eyes Conjunctivae: conjunctivae normal Resp Auscultation: clear to auscultation bilaterally Cardio Rate: regular rate Rhythm: regular rhythm GI Inspection: Yes normal to inspection Neuro Other: Patient is not able to stand up without using the arms. So concern about proximal muscle weakness Extrem General: Yes normal to inspection and No edema Assessment and Plan Assessment & Plan (1) Lumbar radiculopathy: Comment: 12/2022There is electrodiagnostic evidence for chronic left L5-S1 radiculopathy. 3. Cannot rule out a left acute L5-S1 radiculopathy. Code(s): M54.16 - Radiculopathy, lumbar region Plan: EMG done showing chronic left L5-S1 radiculopathy but MRI done negative (2) Leg weakness: Code(s): R29.898 - Other symptoms and signs involving the musculoskeletal system Plan: EMG showing chronic left L5-S1 radiculopathy (3) COPD (chronic obstructive pulmonary disease): Code(s): J44.9 - Chronic obstructive pulmonary disease, unspecified Plan: Continue with inhalers (4) Depression: Comment: Dr. Bhavna chavira Code(s): F32.9 - Major depressive disorder, single episode, unspecified Plan: Continue with counseling and therapy (5) Breast cancer: Comment: Right mastectomy 2007 [facility] February 2022 mammogram Code(s): C50.919 - Malignant neoplasm of unspecified site of unspecified female breast Qualifiers: Breast location: unspecified site of breast Estrogen receptor status: unspecified Patient sex: female Laterality: right Qualified Code(s): C50.911 - Malignant neoplasm of unspecified site of right female breast Plan: Reminded about mammogram (6) Lower extremity weakness: Code(s): R29.898 - Other symptoms and signs involving the musculoskeletal system Plan: work up not fruitful- EMG showing - radiculopathy but work MRI negative . will refer to rheumatology (7) Knee pain, right: Code(s): M25.561 - Pain in right knee Plan: R lateral knee pain- discussed about Voltaren gel to help with pain- if persist xray to do Orders: Referrals Rheumatology Referral R29.898 - Other symptoms and signs involving the musculoskeletal system Coding Level of Care Code Est Pt Level 4 (23294) Diagnoses Lumbar radiculopathy M54.16 Leg weakness R29.898 COPD (chronic obstructive pulmonary disease) J44.9 Depression F32.9 Malignant neoplasm of right female breast, unspecified estrogen receptor status, unspecified site of breast C50.911 Breast location: unspecified site of breast Estrogen receptor status: unspecified Patient sex: female Laterality: right Knee pain, right M25.561
== END 2023-03-17 10:39 | disposition home or self-care (01) ==
PROVIDERS: PCP Internal Medicine; Visit Provider Internal Medicine
DX: M54.16 Radiculopathy, lumbar region (principal); J44.9 Chronic obstructive pulmonary disease, unspecified; C50.911 Malignant neoplasm of unspecified site of right female breast; R29.898 Other symptoms and signs involving the musculoskeletal system; F32.9 Major depressive disorder, single episode, unspecified; M25.561 Pain in right knee
CPT/HCPCS: 99214

== ENCOUNTER 2023-03-30 10:43 | Outpatient (REF) | payer OTHER, SELFPAY | END 2023-03-30 10:44 | disposition home or self-care (01) | LOC: HO.XRAY 10:43 | PROVIDERS: PCP Internal Medicine; Visit Provider Internal Medicine | DX: Z13.89 Encounter for screening for other disorder (principal) ==

== ENCOUNTER 2023-03-31 10:22 | Outpatient (REF) | payer OTHER, SELFPAY ==
--- NOTE | ~2023-03-31 | XR_ITS ---
EXAMINATION: XR KNEE, RIGHT CLINICAL INFORMATION: Right knee pain COMPARISON: 10/27/2020 TECHNIQUE: Four views of the right knee. FINDINGS: Small suprapatellar effusion. Stable appearance of the bony structures with no fractures, dislocations or significant joint space narrowings. Alignment and articulations are maintained. XR/XR knee RT 2V IMPRESSION: Small right suprapatellar effusion. No acute bony pathology.
== END 2023-03-31 10:23 | disposition home or self-care (01) ==
LOC: HO.XRAY 10:22
PROVIDERS: PCP Internal Medicine; Visit Provider Internal Medicine
DX: M25.561 Pain in right knee (principal)
CPT/HCPCS: 73560

== ENCOUNTER 2023-04-11 12:19 | Outpatient (REF) | payer MEDICARE, SELFPAY ==
[2023-04-11 15:10] LABS: Rheumatoid Factor < 13.0 IU/mL (<15.0)
[2023-04-11 15:11] LABS: Uric Acid 5.2 mg/dL (2.4-5.7)
[2023-04-13 13:57] LABS: Cyclic Citrullinated Peptide <16 UNITS
[2023-04-13 19:57] LABS: SM/Ribonucleoprotein Ab <1.0 NEG AI (<1.0 NEG); Smith Protein <1.0 NEG AI (<1.0 NEG)
[2023-04-14 23:17] LABS: Aldolase 3.5 U/L (<=8.1)
[2023-04-18 11:19] LABS: Anti Nuclear Antibody Screen NEGATIVE (NEGATIVE)
== END 2023-04-11 12:20 | disposition home or self-care (01) ==
LOC: HO.LAB 12:19
PROVIDERS: PCP Internal Medicine; Visit Provider Nurse Practitioner Family
DX: M25.561 Pain in right knee (principal); R29.898 Other symptoms and signs involving the musculoskeletal system; M54.16 Radiculopathy, lumbar region; M25.461 Effusion, right knee; G89.29 Other chronic pain
CPT/HCPCS: 20610; 36415; 82085; 82550; 84550; 86038; 86200; 86235; 86431

== ENCOUNTER 2023-04-11 12:19 | Outpatient (AMB) | payer OTHER, SELFPAY ==
--- NOTE | 2023-04-11 12:24 | A.OFFVIS_ITS ---
Intake Vital Signs 04/11/23 12:25 04/11/23 14:51 Height 5 ft 7 in Weight 130 lb 15.273 oz BMI 20.5 20.5 BP 112/80 Blood Pressure Location Lt brachial Position Sitting Pulse 68 Pulse Source Pulse Oximeter Temp 97.0 F Temp Source Skin Pulse Oximetry (%) 98 Oxygen Delivery Method Room Air Intake Visit Reasons: Lower extremity weakness Intake Note: New patient, internally referred, presents today for lower extremity weakness. No prior renal medicine specialist c/o janessa leg pain, difficulty walking, weakness, stiffness, low back pain, feet pain, right knee pain Has tried PT. Manufacturing Quality Inspector Required: No Accompanied by: Self / Same As Patient Allergies No Known Allergies Allergy (Verified 04/11/23 12:24) HPI HPI Comments History of Present Illness Details Ms. Mccarty a 67 yoF referred by PCP for evaluation of lower extremity weakness and altered gait. Ms Benson has a history of Asthma, lower back pain and DDD, Right Breast Cancer with Mastectomy, Former smoker and Osteoporosis. She reports that over time and more noticeable in recent months she finds that it is challenging to walk at her normal pace. It feels as she has to drag her legs along. Whenever she enters the car she lifts them with her hands to put the legs inside because they feel heavy to lift automatically. She has done PT for her lower back pain which was helpful but she did not continue the exercises at home. She reports that whenever she sits she gets up with caution and steadies herself due to the stiffness she feels before moving off. Her joints do get loosened once she gets going. She also has complaints of right knee pain and swelling. She denies impact or injury to the knee. She denies knee locking or instability. She has seen a neurologist and did imaging such as Xray, MRI and an EMG study. She has also seen a Accounting Professional who diagnosed hammer toes. She denies upper body weakness, she can lift her arms without concerns. She denies SOB, difficulty swallowing. She denies Thyroid disease. Patient denies Raynaud's phenomenon, butterfly rash on face or other rashes; denies photosensitivity - getting sick or developing a rash from being out in the sun; denies blood or froth in urine; patient denies hx of SOB, chest pain. Patient denies hx of Carditis or Pleuritis. Patient denies any history of DVT/PE and does not take aspirin or a blood thinner. Denies fevers, excessive fatigue, unexplained weight-loss or weight-gain, Denies: thinning hair or hair loss. Denies: dry, itchy eyes, red burning eyes needing steroids to treat; dry mouth, mouth sores or ulcers; nose bleed; ringing in the ear, Denies abdominal pain, blood or mucous in stool; nausea, vomiting and diarrhea or heartburn. Denies morning stiffness lasting more than 20 mins. [facility] Medical History (Updated 04/11/23 @ 15:10 [facility] Swelling of right knee joint Asthma Lumbar degenerative disc disease Plantar wart Breast cancer Depression Surgical History History of right mastectomy History of knee surgery History of total abdominal hysterectomy and bilateral salpingo-oophorectomy History of foot surgery Family History (Updated 04/11/23 @ 12:36 by RAMON Leyva) Father Dementia Spinal stenosis Mother Breast cancer COPD (chronic obstructive pulmonary disease) Brother Depression Substance abuse Sister Depression Neuropathy Other Arthritis Mental illness in member of household Substance abuse in family Social History Housing: Apartment Alcohol intake: current Alcohol intake frequency: a few times a week Alcohol type: hard liquor Patient Tobacco Use Status: Tobacco use Unknown Tobacco use type: Cigarette Years Smoked: 1997 quit e-Cigarette/Vaping Use: Never Used Second Hand Smoke Exposure: No service: No Current occupational status: retired Cognitive needs: No Hearing needs: No Vision needs: Yes Female Reproductive History Menstrual Total pregnancies: 0 Review of Systems Const All systems reviewed & are unremarkable except as noted in HPI and below Physical Exam Vital Signs: Last Vital Signs Temp 97.0 F 04/11/23 12:25 Pulse 68 04/11/23 12:25 BP 112/80 04/11/23 12:25 Pulse Ox 98 04/11/23 12:25 Oxygen Delivery Method Room Air 04/11/23 12:25 BMI result Body Mass Index 20.5 APPEARANCE: Patient in no acute distress EYES no redness, pupils equal and reactive to light, eyelids normal EARS:? External ear normal, canal clear and tympanic membrane normal. NOSE/SINUS:? Airflow through both nares, no nasal discharge, no bleeding THROAT:? Oral mucosa moist, no ulcerations NECK:? No thyromegaly or masses, no adenopathy, trachea midline. HEART:? Regular rhythm, S1-S2 heard, no murmurs, rubs or gallops. LUNG:? Clear to percussion and auscultation ABD:? Normal bowel sounds, no organomegaly, masses or tenderness. EXTREMITIES:? No edema, no calf tenderness, normal peripheral pulses. Normal range of motion in joints throughout the body. No deformity or other signs of injury. Upper strength 5/5. Quad strength 4/5. Generalized decreased muscle tone NEURO:? Oriented and alert x3.? No focal weakness.? Reflexes symmetric.? Gait normal. SKIN:? There are no skin lesions evident. No objective signs of Raynaud's phe nomenon. JOINT EXAM: Cervical Spine:.? Full range of motion without pain; no tenderness. Thoracic Spine:.? No tenderness on palpation. Lumbar Spine:.? Full range of motion without pain, no tenderness. Chest Wall:.? No tenderness, swelling, increased warmth or erythema. Hands:.? Normal pain-free range of motion without tenderness, swelling, increased warmth or erythema. Able to make a full fist and has a good tutoring manager strength. Wrists:.? Normal pain-free range of motion without tenderness, swelling, increased warmth or erythema. Elbows:. Normal pain-free range of motion without tenderness, swelling, increased warmth or erythema. Shoulders:.?? Full range of motion without pain. No tenderness, weakness, swelling, increased warmth or erythema. Hips:.? Full range of motion without pain. Hip bursa:.? No tenderness. Knees:.?? Left: Normal pain-free range of motion without tenderness, swelling, increased warmth or erythema.? Right: There is joint swelling and warmth Ankles:.? Normal pain-free range of motion without tenderness, swelling, increased warmth or erythema. Feet:.? Normal pain-free range of motion without tenderness, swelling, increased warmth or erythema. Bilateral hammer toes. Pes Planus L>R Office Procedures Joint Injection/Drain Joint Injection/Drain Primary Site: right knee Prep: site was prepped using aseptic technique Injected: 80 mg of, with 1 mL of, 1% plain lidocaine and in the joint Approach Used: anteromedial Procedure: The patient tolerated the procedure well Coding 72489 - Large joint Procedure code (CPT) selection complete Assessment & Plan Assessment & Plan (1) Knee pain, right: Code(s): M25.561 - Pain in right knee Qualifiers: Chronicity: chronic Qualified Code(s): M25.561 - Pain in right knee; G89.29 - Other chronic pain (2) Leg weakness: Code(s): R29.898 - Other symptoms and signs involving the musculoskeletal system Qualifiers: Laterality: bilateral Qualified Code(s): R29.898 - Other symptoms and s igns involving the musculoskeletal system (3) Lower extremity weakness: Code(s): R29.898 - Other symptoms and signs involving the musculoskeletal system Qualifiers: Laterality: bilateral Qualified Code(s): R29.898 - Other symptoms and signs involving the musculoskeletal system (4) Lumbar radiculopathy: Comment: 12/2022There is electrodiagnostic evidence for chronic left L5-S1 radiculopathy. 3. Cannot rule out a left acute L5-S1 radiculopathy. Code(s): M54.16 - Radiculopathy, lumbar region Orders: Orders Creatine Kinase Total 04/11/23 M25.561 - Pain in right knee, R29.898 - Other symptoms and signs involving the musculoskeletal system Rheumatoid Factor 04/11/23 M25.561 - Pain in right knee, R29.898 - Other symptoms and signs involving the musculoskeletal system Cyclic Citrullinated Peptide 04/11/23 M25.561 - Pain in right knee, R29.898 - Other symptoms and signs involving the musculoskeletal system Anti Extractable Nuclear Ag 04/11/23 M25.561 - Pain in right knee, R29.898 - Other symptoms and signs involving the musculoskeletal system Uric Acid 04/11/23 M25.561 - Pain in right knee, R29.898 - Other symptoms and signs involving the musculoskeletal system Aldolase 04/11/23 M25.561 - Pain in right knee, R29.898 - Other symptoms and signs involving the musculoskeletal system DANIEL Reflex Titer and Pattern 04/11/23 M25.561 - Pain in right knee, R29.898 - Other symptoms and signs involving the musculoskeletal system AMB Joint Injection/Aspiration 04/11/23 M25.461 - Effusion, right knee, M25.561 - Pain in right knee Coding Diagnoses Chronic pain of right knee M25.561; G89.29 Chronicity: chronic Weakness of both lower extremities R29.898 Laterality: bilateral Lumbar radiculopathy M54.16 CPT Codes Coding - 86617 Large joint: 40764 - Large joint ([id number])
[2023-04-11 12:25] VITALS: BP 112/80; PULSE 68; TEMP 36.1; O2SAT 98; BMI 20.5
--- NOTE | 2023-04-11 14:48 | MHC.AM.SUB ---
Intake Vital Signs 04/11/23 12:25 04/11/23 14:51 Height 5 ft 7 in Weight 130 lb 15.273 oz BMI 20.5 20.5 BP 112/80 Blood Pressure Location Lt brachial Position Sitting Pulse 68 Pulse Source Pulse Oximeter Temp 97.0 F Temp Source Skin Pulse Oximetry (%) 98 Oxygen Delivery Method Room Air Intake Visit Reasons: Lower extremity weakness Allergies No Known Allergies Allergy (Verified 04/11/23 12:24) [facility] Medical History (Updated 04/11/23 @ 15:10 by BEATRIZ Atkinson) Swelling of right knee joint Asthma Lumbar degenerative disc disease Plantar wart Breast cancer Depression Surgical History History of right mastectomy History of knee surgery History of total abdominal hysterectomy and bilateral salpingo-oophorectomy History of foot surgery Family History (Updated 04/11/23 @ 12:36 by RAMON Leyva) Father Dementia Spinal stenosis Mother Breast cancer COPD (chronic obstructive pulmonary disease) Brother Depression Substance abuse Sister Depression Neuropathy Other Arthritis Mental illness in member of household Substance abuse in family Social History Housing: Apartment Alcohol intake: current Alcohol intake frequency: a few times a week Alcohol type: hard liquor Patient Tobacco Use Status: Tobacco use Unknown Tobacco use type: Cigarette Years Smoked: 1997 quit e-Cigarette/Vaping Use: Never Used Second Hand Smoke Exposure: No service: No Current occupational status: retired Cognitive needs: No Hearing needs: No Vision needs: Yes Physical Exam Vital Signs: Last Vital Signs Temp 97.0 F 04/11/23 12:25 Pulse 68 04/11/23 12:25 BP 112/80 04/11/23 12:25 Pulse Ox 98 04/11/23 12:25 Oxygen Delivery Method Room Air 04/11/23 12:25 BMI result Body Mass Index 20.5 Office Procedures Joint Injection/Drain Joint Injection/Drain Primary Site: right knee Prep: site was prepped using aseptic technique Injected: 80 mg of, with 1 mL of, 1% plain lidocaine and in the joint Approach Used: anteromedial Procedure: The patient tolerated the procedure well Coding 07870 - Large joint Procedure code (CPT) selection complete Results Reviewed Results Reviewed: EXAMINATION: XR KNEE, RIGHT 03/31/2023 CLINICAL INFORMATION: Right knee pain COMPARISON: 10/27/2020 TECHNIQUE: Four views of the right knee. FINDINGS: Small suprapatellar effusion. Stable appearance of the bony structures with no fractures, dislocations or significant joint space narrowings. Alignment and articulations are maintained. XR/XR knee RT 2V IMPRESSION: Small right suprapatellar effusion. No acute bony pathology. 10/27/2020 EXAMINATION: XR KNEE, RIGHT CLINICAL INFORMATION: Pain in the right knee. COMPARISON: None TECHNIQUE: Three views of the right knee. FINDINGS: Likely postsurgical change of the anterior tibial tubercle with defined defect of the anterior cortex with a osteosclerotic margins. No acute abnormality. No fracture or dislocation. The patellofemoral and the femoral tibial joints are normal. There is no joint effusion. There are no soft tissue calcifications. XR/XR knee RT 2V IMPRESSION: Normal right knee. Ordering Physician: Olga Lidia Olivo MD Date of Service: 02/01/23 Procedure(s): MR lumbar spine wo con Accession Number(s): [id number] cc: Olga iLdia Olivo MD~ EXAMINATION: MR LUMBAR SPINE WITHOUT CONTRAST CLINICAL INFORMATION: Radiculopathy COMPARISON: Lumbar radiographs 12/22/2022 TECHNIQUE: MRI of the lumbar spine was obtained using routine sequences without contrast. FINDINGS: Straightening of the normal lumbar lordosis. No significant spondylolisthesis. Vertebral body heights are maintained. Diffusely somewhat heterogeneous marrow signal without suspicious osseous lesion. Multilevel disc desiccation with mild disc height loss most pronounced at L2-L3. Type I Modic endplate change eccentric to the left at L2-L3. Ventral disc osteophyte at L2-L3. Level by level detail as follows: L1-L2: Annular disc bulge with right central annular fissure and mild bilateral facet arthrosis. No spinal canal or neural foraminal stenosis. L2-L3: Annular disc bulge and mild bilateral facet arthrosis with ligamentum flavum thickening. Trace bilateral facet joint effusions. No spinal canal or neural foraminal stenosis. L3-L4: Annular disc bulge with right foraminal annular fissure and mild bilateral facet arthrosis with ligamentum flavum thickening and small bilateral facet joint effusions. No spinal canal stenosis. Minimal right without significant left neural foraminal encroachment. L4-L5: Annular disc bulge with right greater than left foraminal/lateral disc protrusions with associated annular fissuring and mild bilateral facet arthrosis with ligamentum flavum thickening. No spinal canal stenosis. Mild bilateral neural foraminal stenosis. L5-S1: Left greater than right facet arthrosis without spinal canal or neural foraminal stenosis. The conus medullaris terminates at the level of L1-L2. The distal spinal cord is normal in appearance. . No epidural fluid collection, hematoma, or mass. There is to moderate fatty atrophy of the paraspinal musculature. Partially imaged hepatomegaly. The abdominal aorta is of normal contour and caliber. MR/MR lumbar spine wo con IMPRESSION: 1. Mild lumbar spondylosis without evidence of high-grade spinal canal or neural foraminal stenosis at any level in the lumbar spine. 2. Multilevel annular fissures in the lumbar spine. 3. Partially imaged hepatomegaly. 06/27/2022 EXAMINATION: BONE DENSITOMETRY CLINICAL INDICATION: Age-related osteoporosis without current pathological fracture. COMPARISON: Previous BD dated 05/26/2020 and baseline BD dated 05/13/2014. TECHNIQUE: Using a [employer] DXA System (software version: 13.1) manufactured by [employer], dual-energy x-ray absorptiometry was performed of the lumbar spine and left hip. The images are of good technical quality. Summary results are attached. FINDINGS: AP SPINE L1-L4: Current: BMD 0.962 g/cm2, Z-score 0.0, T-score -1.8, osteopenia, 0.9% increase from previous, 1.9% increase from baseline (<5% change is not significant). Prior: BMD 0.953 g/cm2. Baseline: BMD 0.944 g/cm2. LEFT FEMUR, NECK: Current: BMD 0.707 g/cm2, Z-score -0.7, T-score -2.4, osteopenia. Prior: BMD 0.659 g/cm2. Baseline: BMD 0.736 g/cm2. LEFT FEMUR, TOTAL: Current: BMD 0.660 g/cm2, Z-score -1.4, T-score -2.8, osteoporosis, 0.0% no change from previous, 5.2% decrease from baseline (<5% change is not significant). Prior: BMD 0.660 g/cm2. Baseline: BMD 0.696 g/cm2. IDENTIFIED RISK FACTORS: Early menopause, secondary osteoporosis, bilateral oophorectomy, hysterectomy, osteoporosis. HISTORY OF FRACTURE: None listed. MEDICATIONS: Vitamin D, ERT/SERMS. MM/XR DEXA axial skeleton IMPRESSION: 1. DIAGNOSIS: Osteoporosis based on the lowest T-score value of -2.8 in the total femur applying World Health Organization criteria. 12/22/2022 EMG Nerve Conduction FINDINGS: Left tibial motor nerve showed smaller amplitudes compared to the right, although still within normal. Left peroneal motor nerve showed normal distal latency, small amplitude and normal conduction velocity. All other nerves tested were within normal. H reflexes done, normal and symmetric. Concentric needle EMG was performed in selected muscles of the bilateral lower extremity and lumbar paraspinals. Study revealed Signs of electric abnormalities as shown in the table below. Right medial gastrocnemius showed increased insertional activity, PSWs, fibrillations. Left medial gastrocnemius showed increased duration in amplitude. IMPRESSION: 1. This is an abnormal study. 2. There is electrodiagnostic evidence for chronic left L5-S1 radiculopathy. 3. Cannot rule out a left acute L5-S1 radiculopathy. 4. There is no electrodiagnostic evidence for peroneal neuropathy, tibial neuropathy. lumbosacral plexopathy, or peripheral neuropathy. Assessment & Plan Assessment & Plan (1) Knee pain, right: Code(s): M25.561 - Pain in right knee Qualifiers: Chronicity: chronic Qualified Code(s): M25.561 - Pain in right knee; G89.29 - Other chronic pain (2) Leg weakness: Code(s): R29.898 - Other symptoms and signs involving the musculoskeletal system Qualifiers: Laterality: bilateral Qualified Code(s): R29.898 - Other symptoms and signs involving the musculoskeletal system (3) Lumbar radiculopathy: Comment: 12/2022There is electrodiagnostic evidence for chronic left L5-S1 radiculopathy. 3. Cannot rule out a left acute L5-S1 radiculopathy. Code(s): M54.16 - Radiculopathy, lumbar region (4) Swelling of right knee joint: Code(s): M25.461 - Effusion, right knee Plan #Lower Extremity Weakness: The patient is here for evaluation of lower extremity weakness as described in the HPI. After careful initial review of her history, diagnostics and physical examination, I do no think there is an underlying autoimmune or inflammatory etiology. I think the lumbar radiculopathy, as identified on the EMG as chronic is contributory, if not mainly responsible for the weakness in her legs. Nonetheless, I will do some labs to evaluate for muscle breakdown and inflammation though unlikely. She denies muscle tenderness on palpation and has 4/5 strength score for her quads, but 5/5 for all others. The patient does have low muscle tone and may benefit from PT with strengthening. She has had PT prior for her lower back which she says did help. Patient may also benefit from seeing a Neurologist and so I recommend discussing this with PCP. #Right Knee pain and swelling: I do not think this is inflammatory swelling but rather mechanical, due to the added pressure and compensation for the left leg. Most of the weakness is on the left leg so the right compensates. I have attempted to aspirate the fluid but non-productive. I injected corticosteroids and lidocaine. Recommend RICE for the next few days. Once the knee swelling and pain is improved, I will recommend PT for lower extremity weakness. #Lumbar Radiculopathy: Encouraged patient to continue PT exercises at home to prevent recurrence of symptoms of sciatica and back pain I spent 40 minutes reviewing records and history, evaluating patient and documenting. Orders: Orders Creatine Kinase Total Today M25.561 - Pain in right knee, R29.898 - Other symptoms and signs involving the musculoskeletal system Rheumatoid Factor Today M25.561 - Pain in right knee, R29.898 - Other symptoms and signs involving the musculoskeletal system Cyclic Citrullinated Peptide Today M25.561 - Pain in right knee, R29.898 - Other symptoms and signs involving the musculoskeletal system Anti Extractable Nuclear Ag Today M25.561 - Pain in right knee, R29.898 - Other symptoms and signs involving the musculoskeletal system Uric Acid Today M25.561 - Pain in right knee, R29.898 - Other symptoms and signs involving the musculoskeletal system Aldolase Today M25.561 - Pain in right knee, R29.898 - Other symptoms and signs involving the musculoskeletal system DANIEL Reflex Titer and Pattern Today M25.561 - Pain in right knee, R29.898 - Other symptoms and signs involving the musculoskeletal system AMB Joint Injection/Aspiration Today M25.461 - Effusion, right knee, M25.561 - Pain in right knee Coding Level of Care Code Tele New Pt Level 4 (04414) Diagnoses Chronic pain of right knee M25.561; G89.29 Chronicity: chronic Weakness of both lower extremities R29.898 Laterality: bilateral Lumbar radiculopathy M54.16 Swelling of right knee joint M25.461 CPT Codes Coding - 31387 Large joint: 90263 - Large joint ([id number])
[2023-04-11 14:51] VITALS: BMI 20.5
== END 2023-04-11 13:40 | disposition home or self-care (01) ==
PROVIDERS: PCP Internal Medicine; Visit Provider Nurse Practitioner Family
DX: M25.561 Pain in right knee (principal); G89.29 Other chronic pain; R29.898 Other symptoms and signs involving the musculoskeletal system; M54.16 Radiculopathy, lumbar region; M25.461 Effusion, right knee
CPT/HCPCS: 20610; 99204

== ENCOUNTER 2023-04-19 09:43 | Outpatient (AMB) | payer MEDICARE, SELFPAY ==
[2023-04-19 09:45] VITALS: BP 138/72; PULSE 64; O2SAT 97; BMI 20.1
--- NOTE | 2023-04-19 09:45 | A.OFFPC_ITS ---
Vital Signs 3 04/19/23 09:45 Height 5 ft 7 in Weight 128 lb 0.6 oz BMI 20.1 BP 138/72 Blood Pressure Location Lt brachial Position Sitting Pulse 64 Pulse Source Pulse Oximeter Pulse Oximetry (%) 97 Oxygen Delivery Method Room Air Intake Visit Reasons: skin rash Intake Note: pt states an itchy red skin rash on upper body X1 week with no relief. No medication change, food or soaps. Digital Forensics Examiner Required: No Allergies No Known Allergies Allergy (Verified 04/19/23 09:54) Tobacco use date assessed: 04/19/23 Fall risk assessment: No Falls in past year Last assessed Fall Risk: 04/19/23 Dental Screening Dental Screen Date: 04/19/23 HPI skin rash 2 HPI0 Details 67-year-old female with COPD history of breast cancer lumbar radiculopathy last seen in 03/17/2023 comes in for an acute problem of rash. 1 week rash on the trunk no extremeity. only new thign is R knee corstisone injection- knee is better deny new soap new chlothes [facility] Medical History (Updated 04/19/23 @ 10:13 by Olga Lidia Olivo MD) Swelling of right knee joint Asthma Lumbar degenerative disc disease Plantar wart Breast cancer Depression Surgical History History of right mastectomy History of knee surgery History of total abdominal hysterectomy and bilateral salpingo-oophorectomy History of foot surgery Family History (Updated 04/11/23 @ 12:36 by RAMON Leyva) Father Dementia Spinal stenosis Mother Breast cancer COPD (chronic obstructive pulmonary disease) Brother Depression Substance abuse Sister Depression Neuropathy Other Arthritis Mental illness in member of household Substance abuse in family Social History Housing: Apartment Alcohol intake: current Alcohol intake frequency: a few times a week Alcohol type: hard liquor Patient Tobacco Use Status: Tobacco use Unknown Tobacco use type: Cigarette Years Smoked: 1997 quit e-Cigarette/Vaping Use: Never Used Second Hand Smoke Exposure: No service: No Current occupational status: retired Cognitive needs: No Hearing needs: No Vision needs: Yes Questionnaire Thrive Questionnaire Date Thrive assessed: 05/24/22 AUDIT C Alcohol Use Questionnaire (AUDIT-C) 1. How often do you have a drink containing alcohol?: 4 or more times a week 2. How many drinks containing alcohol do you have on a typical day when you are drinking?: 1 or 2 3. How often do you have six or more drinks on one occasion?: Less than monthly Total Score: 5 KAREN-7 AMB Questionnaire KAREN-7 Date KAREN - 7 assessed: 04/19/23 Source: Developed by Drs. Prasanna Christine, Janina Esquivel, Curtis Wilkinson and colleagues, with an educational jayjay from [employer]. Physical exam (Primary Care) Vital Signs: Last Vital Signs Pulse 64 04/19/23 09:45 BP 138/72 04/19/23 09:45 Pulse Ox 97 04/19/23 09:45 Oxygen Delivery Method Room Air 04/19/23 09:45 BMI result Body Mass Index 20.1 Tobacco/Smoking Status: Tobacco use Status Tobacco use date assessed 04/19/23 04/19/23 09:46 Patient Tobacco Use Status Tobacco use Unknown 04/19/23 09:46 Tobacco use type Cigarette 04/19/23 09:46 e-Cigarette/Vaping Use Never Used 04/19/23 09:46 Thrive Assessment: Date of Thrive Assessment Date Thrive assessed 05/24/22 04/19/23 09:46 Back/Spine/Pelvis Back/spine/pelvis image: 2 1. 2. 3. 4. 5. 6. 7. Skin Other: On the trunk abdomen chest, back erythematous with no discharge with some scaliness Assessment and Plan Assessment & Plan (1) Allergic reaction: Code(s): T78.40XA - Allergy, unspecified, initial encounter Plan: Discussed with the patient that it looks like an allergic reaction to something and that we can use the prednisone and the allergy medication to help but it is finding out what the patient is allergic to. Medications: New 2 prednisone 4 tabs QD x 2 days then 3 tabs QD x 2 days then 2 tabs Qd x 2 days then 1 tab QD x 2 days PO daily; 20 tabs 0RF J45.909 - Unspecified asthma, uncomplicated, T78.40XA - Allergy, unspecified, initial encounter fexofenadine (Basilia Allergy) 180 mg PO DAILY 30 tabs 0RF T78.40XA - Allergy, unspecified, initial encounter Coding Level of Care Code Est Pt Level 3 (35211) Diagnoses Allergic reaction T78.40XA
== END 2023-04-19 10:20 | disposition home or self-care (01) ==
PROVIDERS: PCP Internal Medicine; Visit Provider Internal Medicine
DX: R21 Rash and other nonspecific skin eruption (principal); T78.40XA Allergy, unspecified, initial encounter
CPT/HCPCS: 99213

== ENCOUNTER 2023-04-27 09:09 | Outpatient (AMB) | payer OTHER, SELFPAY ==
[2023-04-27 09:20] VITALS: BP 112/60; PULSE 68; O2SAT 97; BMI 20.2
--- NOTE | 2023-04-27 09:20 | A.OFFVIS_ITS ---
Intake Vital Signs 04/27/23 09:20 Height 5 ft 7 in Weight 128 lb 11.999 oz BMI 20.2 BP 112/60 Blood Pressure Location Rt brachial Position Sitting Pulse 68 Pulse Source Pulse Oximeter Pulse Oximetry (%) 97 Oxygen Delivery Method Room Air Intake Visit Reasons: Lower extremity weakness Intake Note: Patient last seen 04/11/23 by [facility], presents today for a 2 week follow up and test results. 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 Bibiana dumas 67 yoF is here for follow-up of her initial evaluation of lower extremity weakness and altered gait. She reports her right knee is doing much better after the corticosteroid injection and she currently has no issues with it. She developed a rash within days of her visit and was given a course of Prednisone by her PCP. Today is the last of the prednisone. She said it was to her upper torso and was itchy. The prednisone did help, the itch is gone but a few reddened areas remain. She has no further concerns to report at this time. Initial History: Ms. Bibiana dumas 67 yoF referred by PCP for evaluation of lower extremity weakness and altered gait. Ms Mccarty has a history of Asthma, lower back pain and DDD, Right Breast Cancer with Mastectomy, Former smoker and Osteoporosis. She reports that over time and more noticeable in recent months she finds that it is challenging to walk at her normal pace. It feels as she has to drag her legs natalia ng. Whenever she enters the car she lifts them with her hands to put the legs inside because they feel heavy to lift automatically. She has done PT for her lower back pain which was helpful but she did not continue the exercises at home. She reports that whenever she sits she gets up with caution and steadies herself due to the stiffness she feels before moving off. Her joints do get loosened once she gets going. She also has complaints of right knee pain and swelling. She denies impact or injury to the knee. She denies knee locking or instability. She has seen a neurologist and did imaging such as Xray, MRI and an EMG study. She has also seen a Audio Visual Collections Coordinator who diagnosed hammer toes. She denies upper body weakness, she can lift her arms without concerns. She denies SOB, difficulty swallowing. She denies Thyroid disease. Patient denies Raynaud's phenomenon, butterfly rash on face or other rashes; denies photosensitivity - getting sick or developing a rash from being out in the sun; denies blood or froth in urine; patient denies hx of SOB, chest pain. Patient denies hx of Carditis or Pleuritis. Patient denies any history of DVT/PE and does not take aspirin or a blood thinner. Denies fevers, excessive fatigue, unexplained weight-loss or weight-gain, Denies: thinning hair or hair loss. Denies: dry, itchy eyes, red burning eyes needing steroids to treat; dry mouth, mouth sores or ulcers; nose bleed; ringing in the ear, Denies abdominal pain, blood or mucous in stool; nausea, vomiting and diarrhea or heartburn. Denies morning stiffness lasting more than 20 mins. [facility] Medical History (Updated 04/27/23 @ 09:57 by YUNIOR Atkinson-) Swelling of right knee joint Asthma Lumbar degenerative disc disease Plantar wart Breast cancer Depression Surgical History History of right mastectomy History of knee surgery History of total abdominal hysterectomy and bilateral salpingo-oophorectomy History of foot surgery Family History Father Dementia Spinal stenosis Mother Breast cancer COPD (chronic obstructive pulmonary disease) Brother Depression Substance abuse Sister Depression Neuropathy Other Arthritis Mental illness in member of household Substance abuse in family Social History Housing: Apartment Alcohol intake: current Alcohol intake frequency: a few times a week Alcohol type: hard liquor Patient Tobacco Use Status: Tobacco use Unknown Tobacco use type: Cigarette Years Smoked: 1997 quit e-Cigarette/Vaping Use: Never Used Second Hand Smoke Exposure: No service: No Current occupational status: retired Cognitive needs: No Hearing needs: No Vision needs: Yes Review of Systems Const All systems reviewed & are unremarkable except as noted in HPI and below Physical Exam Vital Signs: Last Vital Signs Pulse 68 04/27/23 09:20 BP 112/60 04/27/23 09:20 Pulse Ox 97 04/27/23 09:20 Oxygen Delivery Method Room Air 04/27/23 09:20 BMI result Body Mass Index 20.2 APPEARANCE: Patient in no acute distress EXTREMITIES:? No edema, no calf tenderness, normal peripheral pulses. Normal range of motion in joints throughout the body. No deformity or other signs of injury. Upper strength 5/5. Quad strength 3/5. Generalized decreased muscle tone NEURO:? Oriented and alert x3.? No focal weakness.? Reflexes symmetric.? Gait normal. SKIN:? rediss pink linear areas 3 x 7 inches to bilateral flank. No objective signs of Raynaud's phenomenon. JOINT EXAM: Cervical Spine:.? Full range of motion without pain; no tenderness. Thoracic Spine:.? No tenderness on palpation. Lumbar Spine:.? Full range of motion without pain, no tenderness. Chest Wall:.? No tenderness, swelling, increased warmth or erythema. Hands:.? Normal pain-free range of motion without tenderness, swelling, increased warmth or erythema. 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 Wrists:.? Normal pain-free range of motion without tenderness, swelling, increased warmth or erythema. Elbows:. Normal pain-free range of motion without tenderness, swelling, increased warmth or erythema. Shoulders:.?? Full range of motion without pain. No tenderness, weakness, swelling, increased warmth or erythema. Hips:.? Full range of motion without pain. Hip bursa:.? No tenderness. Knees:.?? Left: Normal pain-free range of motion without tenderness, swelling, increased warmth or erythema.? Right: Normal pain-free range of motion without tenderness, swelling, increased warmth or erythema.?Swelling resolved Ankles:.? Normal pain-free range of motion without tenderness, swelling, increased warmth or erythema. Feet:.? Normal pain-free range of motion without tenderness, swelling, increased warmth or erythema. Bilateral hammer toes. Pes Planus L>R Assessment & Plan Assessment & Plan (1) Knee pain, right: Code(s): M25.561 - Pain in right knee Qualifiers: Chronicity: chronic Qualified Code(s): M25.561 - Pain in right knee; G89.29 - Other chronic pain (2) Lumbar radiculopathy: Comment: 12/2022There is electrodiagnostic evidence for chronic left L5-S1 radiculopathy. 3. Cannot rule out a left acute L5-S1 radiculopathy. Code(s): M54.16 - Radiculopathy, lumbar region (3) Lower extremity weakness: Code(s): R29.898 - Other symptoms and signs involving the musculoskeletal system Qualifiers: Laterality: bilateral Qualified Code(s): R29.898 - Other symptoms and signs involving the musculoskeletal system (4) Allergic reaction: Comment: Rash within days of corticosteroid injection - treated with Prednisone. Code(s): T78.40XA - Allergy, unspecified, initial encounter Qualifiers: Encounter type: initial encounter Qualified Code(s): T78.40XA - Allergy , unspecified, initial encounter Plan #Right Knee pain and swelling: The Corticosteroid injection was beneficial. The swelling is resolved, no tenderness on PE. I do not think this was inflammatory swelling but rather mechanical, due to the added pressure and compensation for the left leg. Most of the weakness is on the left leg so the right compensates. All serology for CTD and inflammatory causes was negative. Note: Will keep in mind for future injections that patient may develop rash as possible side effect. #Lower Extremity Weakness: After careful initial review of her history, diagnostics and physical examination, I do no think there is an underlying autoimmune or inflammatory etiology. I think the lumbar radiculopathy, as identified on the EMG as chronic is contributory, if not mainly responsible for the weakness in her legs,left greater than right. L3/5, R4/5. The patient does have low muscle tone and may benefit from PT with strengthening. I have put in a PT referral. She has had PT prior for her lower back which she says did help. Patient may also benefit from seeing a Neurologist and so I recommend discussing this with PCP. #Lumbar Radiculopathy: Encouraged patient to continue PT exercises at home to prevent recurrence of symptoms of sciatica and back pain I spent 20 minutes reviewing records and history, evaluating patient and documenting. Patient will call if need f/u appointment Orders: Orders PT Evaluation and Treatment Today M54.16 - Radiculopathy, lumbar region, R29.898 - Other symptoms and signs involving the musculoskeletal system Coding Level of Care Code Est Pt Level 3 (32231) Diagnoses Chronic pain of right knee M25.561; G89.29 Chronicity: chronic Lumbar radiculopathy M54.16 Weakness of both lower extremities R29.898 Laterality: bilateral Allergic reaction, initial encounter T78.40XA Encounter type: initial encounter
== END 2023-04-27 10:05 | disposition home or self-care (01) ==
PROVIDERS: PCP Internal Medicine; Visit Provider Nurse Practitioner Family
DX: M25.561 Pain in right knee (principal); G89.29 Other chronic pain; M54.16 Radiculopathy, lumbar region; R29.898 Other symptoms and signs involving the musculoskeletal system; T78.40XA Allergy, unspecified, initial encounter
CPT/HCPCS: 99213

== ENCOUNTER → 2023-04-27 09:09 | Outpatient (BNVA) | payer OTHER, SELFPAY | PROVIDERS: PCP Internal Medicine; Visit Provider Nurse Practitioner Family ==

== ENCOUNTER 2023-05-30 10:42 | Outpatient (AMB) | payer OTHER, SELFPAY ==
[2023-05-30 10:52] VITALS: BP 130/80; PULSE 71; O2SAT 98; BMI 19.9
--- NOTE | 2023-05-30 10:52 | MHC.PC.OV ---
Vital Signs 05/30/23 10:52 Height 5 ft 7 in Weight 127 lb BMI 19.9 BP 130/80 Blood Pressure Location Lt brachial Position Sitting Pulse 71 Pulse Source Pulse Oximeter Pulse Oximetry (%) 98 Oxygen Delivery Method Room Air Intake Visit Reasons: Annual Exam Allergies No Known Allergies Allergy (Verified 05/30/23 10:52) Medication List - Last Reconciled 05/30/23 by Olga Lidia Olivo MD albuterol sulfate 90 mcg/actuation 2 puffs PO QID PRN cholecalciferol (vitamin D3) 50 mcg PO DAILY escitalopram oxalate (Lexapro) 10 mg PO DAILY fexofenadine (Basilia Allergy) 180 mg PO DAILY glucosamine HCl 500 mg PO DAILY raloxifene 60 mg PO DAILY vitamin B complex (B Complex-Vitamin B12 tablet) 1 tab PO DAILY Tobacco use date assessed: 04/19/23 Fall risk assessment: No Falls in past year Last assessed Fall Risk: 05/30/23 Dental Screening Dental Screen Date: 05/30/23 Did you have a dental visit in the last 12 months?: No Did you have a dental problem in the last 6 months where you did not have access to dental care?: No Was dental information given to patient?: No HPI Annual Exam HPI Details 67-year-old female with a history of right breast cancer status post mastectomy osteoporosis COPD, coming in for physical. From my list mammogram is due bone density is up-to-date colonoscopy is due. Review of the notes was seen by Rheumatology for lower extremity weakness and this has been going on for months EMG done December 2022 evidence of chronic left L5-S1 radiculopathy had right knee pain injections done with results recommended to have Neurology involved. [facility] Medical History (Updated 05/30/23 @ 12:01 by Olga Lidia Olivo MD) Swelling of right knee joint Asthma Lumbar degenerative disc disease Plantar wart Breast cancer Depression Surgical History History of right mastectomy History of knee surgery History of total abdominal hysterectomy and bilateral salpingo-oophorectomy History of foot surgery Family History Father Dementia Spinal stenosis Mother Breast cancer COPD (chronic obstructive pulmonary disease) Brother Depression Substance abuse Sister Depression Neuropathy Other Arthritis Mental illness in member of household Substance abuse in family Social History (Updated 05/30/23 @ 11:51 by Olga Lidia Olivo MD) Housing: Apartment Alcohol intake: current Alcohol intake frequency: a few times a week Alcohol type: hard liquor Comment: QD 2-3 drinks Patient Tobacco Use Status: Tobacco use Unknown Tobacco use type: Cigarette Years Smoked: 1997 quit e-Cigarette/Vaping Use: Never Used Second Hand Smoke Exposure: No service: No Current occupational status: retired Cognitive needs: No Hearing needs: No Vision needs: Yes Questionnaire PHQ-9 Over the last 2 weeks, how often have you been bothered by any of the following problems? 1. Little interest or pleasure in doing things: nearly every day 2. Feeling down, depressed, or hopeless: nearly every day 3. Trouble falling or staying asleep, or sleeping too much: nearly every day 4. Feeling tired or having little energy: nearly every day 5. Poor appetite or overeating: nearly every day 6. Feeling bad about yourself - or that you are a failure or have let yourself or your family down: nearly every day 7. Trouble concentrating on things, such as reading the newspaper or watching television: nearly every day 8. Moving or speaking so slowly that other people could have noticed. Or the opposite - being so fidgety or restless that you have been moving around a lot more than usual: nearly every day 9. Thoughts that you would be better off or of hurting yourself in some way: nearly every day Total score: 27 Depression Screening Interpretation: Positive Depression Screening Done: Yes Source: Developed by Drs. Prasanna Christine, Janina Esquivel, Curtis Wilkinson and colleagues, with an educational jayjay from [employer]. Thrive Questionnaire Date Thrive assessed: 05/30/23 I am a: Patient What is your living situation today?: I have a steady place to live Within the past 12 months, did the food you bought not last and you didn't have the money to get more?: Never true Within the past 12 months, did you worry whether your food would run out before you got money to buy more?: Never true Do you have trouble paying for medicines?: No Do you have trouble getting transportation to medical appointments?: No Do you have trouble paying your heating and electricity bill?: No Do you have trouble taking care of your child, family member or friend?: No Do you have trouble with day-to-day activities such as bathing, preparing meals, shopping, managing finances, etc.?: No Are you currently unemployed and looking for a job?: No Are you interested in more education?: No Currently or been in a relationship where the following occur: no concerns reported THRIVE Score: 0 AUDIT C Alcohol Use Questionnaire (AUDIT-C) 1. How often do you have a drink containing alcohol?: 4 or more times a week 2. How many drinks containing alcohol do you have on a typical day when you are drinking?: 1 or 2 3. How often do you have six or more drinks on one occasion?: Less than monthly Total Score: 5 KAREN-7 AMB Questionnaire KAREN-7 Date KAREN - 7 assessed: 05/30/23 Feeling nervous, anxious, or on edge: 3 = Nearly every day Not being able to stop or control worryin = Nearly every day Worrying too much about different things: 3 = Nearly every day Trouble relaxin = Nearly every day Being so restless that it is hard to sit still: 3 = Nearly every day Becoming easily annoyed or irritable: 3 = Nearly every day Feeling afraid as if something awful might happen: 3 = Nearly every day Total KAREN-7 score (0-4 normal; 5-9 mild; 10-14 moderate; 15-21 severe): 21 Source: Developed by Drs. Prasanna Christine, Janina Esquivel, Curtis Wilkinson and colleagues, with an educational jayjay from [employer]. Review of Systems Const Denies poor appetite and Denies weakness Eyes Denies no additional complaints ENT Reports Normal hearing present, Denies dizziness, Denies nasal congestion, Denies tinnitus and Denies sore throat Card Denies chest pain, Denies syncope, Denies rapid heart rate and Denies dyspnea Resp Denies cough and Denies dyspnea GI Denies change in stool character, Reports constipation, Denies diarrhea, Denies nausea and Denies vomiting Denies urinary frequency, Denies difficulty voiding and Denies dysuria Neuro Reports Normal hearing present, Denies confusion, Denies dizziness, Denies syncope and Denies weakness Psych Denies confusion Physical exam (Primary Care) Vital Signs: Last Vital Signs Pulse 71 05/30/23 10:52 BP 130/80 05/30/23 10:52 Pulse Ox 98 05/30/23 10:52 Oxygen Delivery Method Room Air 05/30/23 10:52 BMI result Body Mass Index 19.9 Tobacco/Smoking Status: Tobacco use Status Tobacco use date assessed 04/19/23 05/30/23 10:53 Patient Tobacco Use Status Tobacco use Unknown 05/30/23 10:53 Tobacco use type Cigarette 05/30/23 10:53 e-Cigarette/Vaping Use Never Used 05/30/23 10:53 PHQ-9: PHQ-9 Score PHQ-9: Total score 27 05/30/23 11:18 Depression Screening Interpretation: Positive Thrive Assessment: Date of Thrive Assessment Date Thrive assessed 05/30/23 05/30/23 10:53 Currently or been in a relationship where the following occur: no concerns reported Const General: No confusion Orientation/consciousness: No confusion HENMT Head: Yes normocephalic Ears: external ears normal and TM's normal bilaterally Face and sinus: Yes normal facial exam Mouth: moist mucous membranes Throat: Yes tonsils normal Eyes Conjunctivae: conjunctivae normal Pupils: Equal, round and reactive pupils present and Pupil accommodation reflex normal Direct Ophthalmoscopy: normal light reflex Neck Neck: No lymphadenopathy Thyroid: Thyroid normal Chest Chest palpation & inspection: normal inspection of the chest Resp Effort & Inspection: normal respiratory effort and no audible wheezes Auscultation: clear to auscultation bilaterally, no crackles, no wheezes and lung sounds not diminished Cardio Rate: regular rate Rhythm: regular rhythm Peripheral pulses: radial pulses present and dorsalis pedis present GI Palpation (GI): no masses Auscultation: normal bowel sounds and normoactive bowel sounds Rectal Exam - Female: deferred Skin General skin exam: no rashes or lesions noted Rashes: no rashes Neuro General: No confusion Cranial nerves: Yes Equal, round and reactive pupils present and Yes Normal hearing present Cognition (Neuro): normal cognition Gait exam (Neuro): Normal gait present Motor exam (neuro): 5/5 motor strength present throughout Deep tendon reflexes (DTR's): Right brachioradialis reflex intensity grade: 2+, Left brachioradialis reflex intensity grade: 2+, Right patellar reflex intensity grade: 2+ and Left patellar reflex intensity grade: 2+ Extrem General: No edema Assessment and Plan Assessment & Plan (1) Annual physical exam: Code(s): Z00.00 - Encounter for general adult medical examination without abnormal findings (2) COPD (chronic obstructive pulmonary disease): Code(s): J44.9 - Chronic obstructive pulmonary disease, unspecified Plan: Continue with albuterol inhaler as needed (3) Depression: Comment: Dr. Bhavna chavira Code(s): F32.9 - Major depressive disorder, single episode, unspecified Plan: Continue with counseling and therapy (4) Breast cancer: Comment: Right mastectomy 2007 [facility] February 2022 mammogram Code(s): C50.919 - Malignant neoplasm of unspecified site of unspecified female breast Qualifiers: Breast location: unspecified site of breast Estrogen receptor status: unspecified Patient sex: female Laterality: right Qualified Code(s): C50.911 - Malignant neoplasm of unspecified site of right female breast Plan: Patient is reminded about the mammogram (5) Osteoporosis: Comment: May 2020, June 2022 Code(s): M81.0 - Age-related osteoporosis without current pathological fracture Qualifiers: Osteoporosis type: age-related Presence of current pathological fracture: without current pathological fracture Qualified Code(s): M81.0 - Age-related osteoporosis without current pathological fracture Plan: Calcium vitamin-D and keep active (6) Lumbar radiculopathy: Comment: 12/2022There is electrodiagnostic evidence for chronic left L5-S1 radiculopathy. 3. Cannot rule out a left acute L5-S1 radiculopathy. Code(s): M54.16 - Radiculopathy, lumbar region Plan: Patient has seen Rheumatology and has recommended getting Neurology involved. (7) Colon cancer screening: Code(s): Z12.11 - Encounter for screening for malignant neoplasm of colon (8) Leg skin lesion, left: Code(s): L98.9 - Disorder of the skin and subcutaneous tissue, unspecified (9) Acute bronchitis: Code(s): J20.9 - Acute bronchitis, unspecified Orders: Orders Comprehensive Met. Panel Today J45.20 - Mild intermittent asthma, uncomplicated Free T4 (Free Thyroxine) Today J45.20 - Mild intermittent asthma, uncomplicated Complete Blood Count Auto Diff Today J45.20 - Mild intermittent asthma, uncomplicated Thyroid Stimulating Hormone Today J45.20 - Mild intermittent asthma, uncomplicated Vitamin B12 and Folate Today J45.20 - Mild intermittent asthma, uncomplicated Liver Panel Today J45.20 - Mild intermittent asthma, uncomplicated, R79.89 - Other specified abnormal findings of blood chemistry Referrals Neurology Referral M54.16 - Radiculopathy, lumbar region Gastroenterology Referral Z12.11 - Encounter for screening for malignant neoplasm of colon Dermatology Referral L98.9 - Disorder of the skin and subcutaneous tissue, unspecified Medications: New doxycycline hyclate 100 mg PO BID 7 days 14 caps 0RF J20.9 - Acute bronchitis, unspecified Coding Level of Care Code Est Pt Prev Care >65y(13508) Diagnoses Annual physical exam Z00.00 COPD (chronic obstructive pulmonary disease) J44.9 Depression F32.9 Malignant neoplasm of right female breast, unspecified estrogen receptor status, unspecified site of breast C50.911 Breast location: unspecified site of breast Estrogen receptor status: unspecified Patient sex: female Laterality: right Age-related osteoporosis without current pathological fracture M81.0 Osteoporosis type: age-related Presence of current pathological fracture: without current pathological fracture Lumbar radiculopathy M54.16 Colon cancer screening Z12.11 Leg skin lesion, left L98.9 Acute bronchitis J20.9 Additional Codes PHQ-9 - 36277 - PHQ-9 Billing: ([id number])
== END 2023-05-30 12:11 | disposition home or self-care (01) ==
PROVIDERS: Visit Provider Internal Medicine
DX: Z00.00 Encounter for general adult medical examination without abnormal findings (principal); J44.9 Chronic obstructive pulmonary disease, unspecified; C50.911 Malignant neoplasm of unspecified site of right female breast; F32.9 Major depressive disorder, single episode, unspecified; M81.0 Age-related osteoporosis without current pathological fracture; M54.16 Radiculopathy, lumbar region; Z12.11 Encounter for screening for malignant neoplasm of colon; L98.9 Disorder of the skin and subcutaneous tissue, unspecified; J20.9 Acute bronchitis, unspecified
CPT/HCPCS: 99397

== ENCOUNTER 2023-07-24 11:00 | Outpatient (RCR) | payer OTHER, SELFPAY ==
--- NOTE | 2023-05-23 14:04 | MHC.PT.EP ---
[facility] [place] Office [place] Office [place] Office [address] Juancarlos Joaquin [address] [phone] F: [phone] F: [phone] F: [phone] F: [phone] Physical Therapy Plan of Care Date of Evaluation: 05/23/23 Date of Surgery: NA Diagnosis: LE WEAKNESS, LUMBAR RADICULOPATHY Assessment: Pt IS 67 YO F REFERRED TO PT FROM KAY[facility] BRODY ([facility])WITH LUMBAR RADICULOPATHY/LE WEAKNESS. Pt HAD PT LAST YEAR FOR LBP WITH GOOD RESULTS. PRESENTS TO PT WITH HIP WEAKNESS B, ANTALGIC GT BUT NOT ALOT OF PAIN. SHOULD BENEFIT FROM PT TO HELP WITH CORE AND LE STRENGTHENING Frequency and Duration: The patient will be seen 1X/WK X 6-8 WKS Short Term Goals: 1. I HEP WITH DC EX PLAN 2. INCREASED AWARENESS POSTURE AND BODY MECHANICS 3. 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 NO FALLS REPORTED 2. INCREASED HIP STRENGTH 1/2-1 MM GRADE T/O Treatment Plan: Modalities to reduce pain, spasms and effusion. Manual therapy to restore motion and function. Therapeutic exercise to improve strength and flexibility. Neuromuscular re-education for posture and balance. Therapeutic activities to return to functional activities of daily living. Electronically signed by: HARLAN SALCIDO PT Please sign and return to therapist. Thank you for your referral.
--- NOTE | 2023-09-06 14:13 | MHC.PT.DC ---
[facility] [place] Office [place] Office [place] Office [address] Juancarlos Joaquin [address] [phone] F: [phone] F: [phone] F: [phone] F: [phone] Physical Therapy Discharge Report Diagnosis: LE WEAKNESS, LUMBAR RADICULOPATHY Date of Surgery: NA Date of Evaluation: 05/23/23 Date of Discharge: 09/06/23 Treatments to Date: 8 Cancellations to Date: No Shows to Date: Discharge Status: Achieved Goals Improved Function Independent with HEP Discharge Summary: PER ASSESSMENT BY YUE CATALAN BRANCH CONTROLLER ON 07/24/23 Pt without questions at this time, has met all goals. Progressed reps on above standing therex and pt reports compliance with all supine therex. D/C I with HEP today. Electronically signed by: HARLAN SALCIDO PT Please sign and return to therapist. Thank you for your referral.
== END 2023-09-06 14:13 | disposition home or self-care (01) ==
LOC: HO.PT 11:00
PROVIDERS: PCP Internal Medicine; Visit Provider Nurse Practitioner Family
DX: M54.16 Radiculopathy, lumbar region (principal); R29.898 Other symptoms and signs involving the musculoskeletal system
CPT/HCPCS: 97110; 97161; 97530; 97535

== ENCOUNTER 2023-11-27 08:00 | Outpatient (REF) | payer OTHER, SELFPAY ==
[2023-11-27 10:45] LABS: MANUAL DIFF FLAG NO
[2023-11-27 10:47] LABS: Basophils Absolute Auto 0.1 X10*3/uL (0.0-0.2); Basophils Percent Auto 0.7 % (0-2); Eosinophils Absolute Auto 0.2 X10*3/uL (0.0-0.4); Eosinophils Percent Auto 2.2 % (0-4); Hematocrit 43.1 % (37.0-47.0); Hemoglobin 14.4 g/dl (12.0-16.0); Imm Gran Abs Auto 0.01 X10*3/uL (0.00-0.03); Imm Gran Pct Auto 0.1 % (0.0-0.4); Lymphocytes Absolute Auto 1.7 X10*3/uL (1.2-4.9); Lymphocytes Percent Auto 24.3 % (20-40); Mean Corpuscular HGB Conc 33.4 g/dl (31.0-35.0); Mean Corpuscular Hemoglobin 32.7 pg (27.0-33.0); Mean Corpuscular Volume 97.7 fL (80.0-98.0); Mean Platelet Volume 10.9 fL (9.4-12.3); Monocytes Absolute Auto 0.5 X10*3/uL (0.1-1.2); Monocytes Percent Auto 7.8 % (2-11); Neutrophils Absolute Auto 4.4 x10*3/uL (2.0-8.3); Neutrophils Percent Auto 64.9 % (45-73); Platelet Count 276 X10*3/uL (160-400); Red Blood Count 4.41 X10*6/uL (4.20-5.50); Red Cell Distribution Width 12.4 % (11.0-16.0); White Blood Count 6.8 X10*3/uL (4.8-10.8)
[2023-11-27 11:22] LABS: Alanine Aminotransferase 15 U/L (0-31); Albumin Level 4.3 g/dL (3.5-5.0); Alkaline Phosphatase 82 U/L (39-117); Anion Gap 13 (12-20); Aspartate Amino Transferase 15 U/L (5-31); Bilirubin Direct 0.2 mg/dL (0.0-0.5); Bilirubin Total 0.6 mg/dL (0.0-1.0); Blood Urea Nitrogen 17 mg/dL (9-16); Calcium 9.6 mg/dL (8.4-10.2); Carbon Dioxide 28 mmol/L (22-29); Chloride 106 mmol/L (96-108); Estimated Glomerular Filt Rate > 60; Free T4 (Free Thyroxine) 0.85 ng/dL (0.71-1.85); Glucose Random 91 mg/dL (60-115); Sodium 143 mmol/L (135-145); Thyroid Stimulating Hormone 0.84 uIU/mL (0.32-4.0); Total Protein 6.7 g/dL (6.5-8.0)
[2023-11-27 11:34] LABS: Folate 11.4 ng/mL (> or = 4.0); Vitamin B12 549 pg/mL (200-900)
== END 2023-11-27 08:01 | disposition home or self-care (01) ==
LOC: HO.10HDL 08:00
PROVIDERS: Visit Provider Internal Medicine
DX: J45.20 Mild intermittent asthma, uncomplicated (principal); R79.89 Other specified abnormal findings of blood chemistry
CPT/HCPCS: 36415; 80053; 82248; 82607; 82746; 84439; 84443; 85025

== ENCOUNTER 2023-11-30 09:39 | Outpatient (AMB) | payer OTHER, SELFPAY ==
[2023-11-30 10:15] VITALS: BP 136/62; PULSE 64; O2SAT 97
--- NOTE | 2023-11-30 10:15 | MHC.PC.OV ---
Vital Signs 11/30/23 10:15 Height 5 ft 7 in Weight 128 lb BMI 20.0 BP 136/62 Blood Pressure Location Lt brachial Position Sitting Pulse 64 Pulse Source Pulse Oximeter Pulse Oximetry (%) 97 Oxygen Delivery Method Room Air Intake Visit Reasons: 6 Month F/U Allergies No Known Allergies Allergy (Verified 11/30/23 10:15) Medication List - Last Reconciled 11/30/23 by Olga Lidia Olivo MD albuterol sulfate 90 mcg/actuation 2 puffs PO QID PRN cholecalciferol (vitamin D3) 50 mcg PO DAILY escitalopram oxalate (Lexapro) 10 mg PO DAILY fexofenadine (Basilia Allergy) 180 mg PO DAILY glucosamine HCl 500 mg PO DAILY ketoconazole 2% 1 appl topical 2XW raloxifene 60 mg PO DAILY vitamin B complex (B Complex-Vitamin B12 tablet) 1 tab PO DAILY Tobacco use date assessed: 04/19/23 Fall risk assessment: No Falls in past year Last assessed Fall Risk: 11/30/23 Dental Screening Dental Screen Date: 05/30/23 HPI 6 Month F/U HPI Details 68-year-old female with COPD history of breast cancer osteoporosis lumbar radiculopathy last seen in 06/07/2023. Mammogramn is up-to-date 04/08/2023 bone density is up-to-date 07/07/2022 and has been reminded about colonoscopy. Patient has met with Gastroenterology plan colon test next month. L leg swelling. patinent has a rash on the scalp 1 cm and itchy occ - scaly PFSH Medical History (Updated 11/30/23 @ 11:03 by Olga Lidia Olivo MD) Swelling of right knee joint Asthma Lumbar degenerative disc disease Plantar wart Breast cancer Depression Surgical History History of right mastectomy History of knee surgery History of total abdominal hysterectomy and bilateral salpingo-oophorectomy History of foot surgery Family History Father Dementia Spinal stenosis Mother Breast cancer COPD (chronic obstructive pulmonary disease) Brother Depression Substance abuse Sister Depression Neuropathy Other Arthritis Mental illness in member of household Substance abuse in family Social History (Updated 05/30/23 @ 11:51 by Olga Lidia Olivo MD) Housing: Apartment Alcohol intake: current Alcohol intake frequency: a few times a week Alcohol type: hard liquor Comment: QD 2-3 drinks Patient Tobacco Use Status: Tobacco use Unknown Tobacco use type: Cigarette Years Smoked: 1997 quit e-Cigarette/Vaping Use: Never Used Second Hand Smoke Exposure: No service: No Current occupational status: retired Cognitive needs: No Hearing needs: No Vision needs: Yes Questionnaire PHQ-9 Over the last 2 weeks, how often have you been bothered by any of the following problems? 1. Little interest or pleasure in doing things: nearly every day 2. Feeling down, depressed, or hopeless: nearly every day 3. Trouble falling or staying asleep, or sleeping too much: nearly every day 4. Feeling tired or having little energy: nearly every day 5. Poor appetite or overeating: nearly every day 6. Feeling bad about yourself - or that you are a failure or have let yourself or your family down: nearly every day 7. Trouble concentrating on things, such as reading the newspaper or watching television: nearly every day 8. Moving or speaking so slowly that other people could have noticed. Or the opposite - being so fidgety or restless that you have been moving around a lot more than usual: nearly every day 9. Thoughts that you would be better off or of hurting yourself in some way: nearly every day Total score: 27 Depression Screening Interpretation: Positive Depression Screening Done: Yes Source: Developed by Drs. Prasanna Christine, Curtis Huynh and colleagues, with an educational jayjay from [employer]. Thrive Questionnaire Date Thrive assessed: 05/30/23 AUDIT C Alcohol Use Questionnaire (AUDIT-C) 1. How often do you have a drink containing alcohol?: 4 or more times a week 2. How many drinks containing alcohol do you have on a typical day when you are drinking?: 1 or 2 3. How often do you have six or more drinks on one occasion?: Less than monthly Total Score: 5 KAREN-7 AMB Questionnaire KAREN-7 Date KAREN - 7 assessed: 05/30/23 Source: Developed by Drs. Prasanna Christine, Janina Esquivel, Curtis Wilkinson and colleagues, with an educational jayjay from [employer]. Physical exam (Primary Care) Vital Signs: Last Vital Signs Pulse 64 11/30/23 10:15 BP 136/62 11/30/23 10:15 Pulse Ox 97 11/30/23 10:15 Oxygen Delivery Method Room Air 11/30/23 10:15 BMI result Body Mass Index 20.0 Tobacco/Smoking Status: Tobacco use Status Tobacco use date assessed 04/19/23 11/30/23 10:16 Patient Tobacco Use Status Tobacco use Unknown 11/30/23 10:16 Tobacco use type Cigarette 11/30/23 10:16 e-Cigarette/Vaping Use Never Used 11/30/23 10:16 PHQ-9: PHQ-9 Score PHQ-9: Total score 27 11/30/23 10:29 Depression Screening Interpretation: Positive Thrive Assessment: Date of Thrive Assessment Date Thrive assessed 05/30/23 11/30/23 10:16 Const General: alert; No acute distress Eyes Conjunctivae: conjunctivae normal Resp Auscultation: clear to auscultation bilaterally Cardio Rate: regular rate Rhythm: regular rhythm GI Inspection: Yes normal to inspection Extrem General: Yes normal to inspection and No edema Assessment and Plan Assessment & Plan (1) Colon cancer screening: Code(s): Z12.11 - Encounter for screening for malignant neoplasm of colon Plan: Patient has a schedule in December 2023 (2) COPD (chronic obstructive pulmonary disease): Code(s): J44.9 - Chronic obstructive pulmonary disease, unspecified Plan: Continue with albuterol inhaler only (3) Breast cancer: Comment: Right mastectomy 2007 [facility] February 2022 mammogram Code(s): C50.919 - Malignant neoplasm of unspecified site of unspecified female breast Qualifiers: Breast location: unspecified site of breast Estrogen receptor status: unspecified Patient sex: female Laterality: right Qualified Code(s): C50.911 - Malignant neoplasm of unspecified site of right female breast Plan: Mammogram is up-to-date March 2023 (4) Depression: Comment: Dr. Bhavna chavira Code(s): F32.9 - Major depressive disorder, single episode, unspecified Plan: Continue with present medication (5) Seborrhea capitis: Code(s): L21.0 - Seborrhea capitis Medications: New ketoconazole 2% 1 appl topical 2XW 120 mL 0RF L21.0 - Seborrhea capitis Coding Level of Care Code Est Pt Level 4 (02535) Diagnoses Colon cancer screening Z12.11 COPD (chronic obstructive pulmonary disease) J44.9 Malignant neoplasm of right female breast, unspecified estrogen receptor status, unspecified site of breast C50.911 Breast location: unspecified site of breast Estrogen receptor status: unspecified Patient sex: female Laterality: right Depression F32.9 Seborrhea capitis L21.0 Additional Codes PHQ-9 - 65805 - PHQ-9 Billing: ([id number])
== END 2023-11-30 11:07 | disposition home or self-care (01) ==
PROVIDERS: PCP Internal Medicine; Visit Provider Internal Medicine
DX: J44.9 Chronic obstructive pulmonary disease, unspecified (principal); C50.911 Malignant neoplasm of unspecified site of right female breast; F33.9 Major depressive disorder, recurrent, unspecified; L21.0 Seborrhea capitis
CPT/HCPCS: 99214

== ENCOUNTER 2024-01-17 07:19 | Day surgery (SDC) | payer OTHER, SELFPAY ==
[2024-01-15 08:42] VITALS: BMI 19.9
--- NOTE | 2024-01-16 08:29 | P.CONAN_ITS ---
Documented by User: Prerna Dozier NP 01/16/24 08:29 HPI - Anesthesia Eval Consult details Narrative: 68yo F for Colonoscopy PMFSH Active Problems Active Problems: All Active Problems Seborrhea capitis (Acute) Acute bronchitis (Acute) Leg skin lesion, left (Acute) Colon cancer screening (Acute) Allergic reaction (Acute) Knee pain, right (Acute) Lower extremity weakness (Acute) Lumbar radiculopathy (Acute) Leg weakness (Acute) COVID-19 virus infection (Acute) Hammertoe, bilateral (Acute) Annual physical exam (Acute) Low back pain (Acute) Vision changes (Acute) Annual physical exam (Acute) Allergic rhinitis (Acute) COPD (chronic obstructive pulmonary disease) (Acute) Right medial knee pain (Acute) Osteoporosis (Acute) Swelling of right knee joint (Acute) Depression (Acute) Breast cancer (Acute) Asthma (Acute) Past Medical History Medical History History of Mohs micrographic surgery for skin cancer Arthritis History of right breast cancer Swelling of right knee joint Asthma Lumbar degenerative disc disease Plantar wart Breast cancer Depression Family History Family History Father Dementia Spinal stenosis Mother Breast cancer COPD (chronic obstructive pulmonary disease) Brother Depression Substance abuse Sister Depression Neuropathy Other Arthritis Mental illness in member of household Substance abuse in family Surgical History Surgical History H/O colonoscopy History of right mastectomy History of knee surgery History of total abdominal hysterectomy and bilateral salpingo-oophorectomy History of foot surgery Social History Social History Housing: Apartment Are you a primary care management specialist to a significant other at home: No Alcohol intake: current Alcohol intake frequency: 0-2 drinks per day Alcohol type: hard liquor Comment: QD 2-3 drinks Patient Tobacco Use Status: Never used Tobacco Tobacco use type: Cigarette Years Smoked: 1997 quit e-Cigarette/Vaping Use: Never Used Second Hand Smoke Exposure: No Use of substances other than those prescribed or required for medical reasons: No Have you been hit, kicked, punched, or otherwise hurt by someone within the past year? If so, by whom?: No Are you DNR?: No Advance Directives: No Advance Directives Information Provided: Yes Recently lost weight without trying: No Nutrition Risks: No Nutritional Risk service: No Current occupational status: retired Cognitive needs: No Hearing needs: No Vision needs: Yes Meds Allergies Allergy/AdvReac Type Severity Reaction Status Date / Time No Known Allergies Allergy Verified 11/30/23 10:15 Home Medications ?Medication ?Instructions ?Recorded ?Confirmed ?Last Taken ?Type cholecalciferol (vitamin D3) 50 50 mcg PO DAILY 05/13/20 01/15/24 Unknown History mcg (2,000 unit) capsule escitalopram oxalate 10 mg tablet 10 mg PO DAILY 11/15/21 01/15/24 Unknown History (Lexapro) calcium carbonate (Calcium 600) 600 mg PO DAILY 01/15/24 01/15/24 Unknown Histo ry Exam Height,Weight and Vital Signs: Height 5 ft 7.5 in Weight 58.513 kg Assessment and Plan Assessment Anesthesia Assessment: Chart Reviewed Documented by User: Margoth Cano MD 01/17/24 08:43 [facility] Active Problems Active Problems: All Active Problems Seborrhea capitis (Acute) Acute bronchitis (Acute) Leg skin lesion, left (Acute) Colon cancer screening (Acute) Allergic reaction (Acute) Knee pain, right (Acute) Lower extremity weakness (Acute) Lumbar radiculopathy (Acute) Leg weakness (Acute) COVID-19 virus infection (Acute) Hammertoe, bilateral (Acute) Annual physical exam (Acute) Low back pain (Acute) Vision changes (Acute) Annual physical exam (Acute) Allergic rhinitis (Acute) COPD (chronic obstructive pulmonary disease) (Acute) Right medial knee pain (Acute) Osteoporosis (Acute) Swelling of right knee joint (Acute) Depression (Acute) Breast cancer (Acute) Asthma (Acute) ETOH daily Past Medical History Medical History History of Mohs micrographic surgery for skin cancer Arthritis History of right breast cancer Swelling of right knee joint Asthma Lumbar degenerative disc disease Plantar wart Breast cancer Depression Family History Family History Father Dementia Spinal stenosis Mother Breast cancer COPD (chronic obstructive pulmonary disease) Brother Depression Substance abuse Sister Depression Neuropathy Other Arthritis Mental illness in member of household Substance abuse in family Family history of problems with anesthesia: No Surgical History Surgical History H/O colonoscopy History of right mastectomy History of knee surgery History of total abdominal hysterectomy and bilateral salpingo-oophorectomy History of foot surgery History of Problems with Anesthesia: No Social History Social History Housing: Apartment Are you a primary care management specialist to a significant other at home: No Alcohol intake: current Alcohol intake frequency: 0-2 drinks per day Alcohol type: hard liquor Comment: QD 2-3 drinks Patient Tobacco Use Status: Never used Tobacco Tobacco use type: Cigarette Years Smoked: 1997 quit e-Cigarette/Vaping Use: Never Used Second Hand Smoke Exposure: No Use of substances other than those prescribed or required for medical reasons: No Have you been hit, kicked, punched, or otherwise hurt by someone within the past year? If so, by whom?: No Are you DNR?: No Advance Directives: No Advance Directives Information Provided: Yes Recently lost weight without trying: No Nutrition Risks: No Nutritional Risk service: No Current occupational status: retired Cognitive needs: No Hearing needs: No Vision needs: Yes Meds Allergies Allergy/AdvReac Type Severity Reaction Status Date / Time No Known Allergies Allergy Verified 11/30/23 10:15 Home Medications ?Medication ?Instructions ?Recorded ?Confirmed ?Last Taken ?Type cholecalciferol (vitamin D3) 50 50 mcg PO DAILY 05/13/20 01/15/24 Unknown History mcg (2,000 unit) capsule escitalopram oxalate 10 mg tablet 10 mg PO DAILY 11/15/21 01/15/24 Unknown History (Lexapro) calcium carbonate (Calcium 600) 600 mg PO DAILY 01/15/24 01/15/24 Unknown History Exam Height,Weight and Vital Signs: Height 5 ft 7.5 in Weight 58.513 kg Vital Signs Temp Pulse Resp BP Pulse Ox O2 Del Method 01/17/24 08:03 98 F 64 16 154/69 H 98 Room Air Airway Mallampati Class: I TM Dist: >3cm Neck ROM: Full Loose/Missing/Broken Teeth: Yes (Missing tooth top Right back. Denies broken or loose teeth) Heart: RRR Lungs: CTAB Assessment and Plan Assessment Anesthesia Assessment: Anesthesia Plan Discussed and Chart Reviewed Final Anesthetic Review Family History of Problems with Anesthesia: No History of Problems with Anesthesia: No NPO: Yes ASA Class: II Final Preanesthetic Review: No Changes in Pt Med Stat, Meds/Allgs Chart Reviewed, Consent Obtained/Reviewed and Anes Risks/Benef Reviewed Patient Risk: Low Procedure Risk: Low Assessment/Block/Sedation in SS: Assess/Block/Sedation-SS Anesthetic Plan Anesthetic Plan: TIVA Disposition: Standard PACU
[2024-01-17 07:53] VITALS: BMI 19.2
[2024-01-17 08:03] VITALS: BP 154/69; PULSE 64; RESP 16; TEMP 36.6; O2SAT 98
[2024-01-17] MEDS: Lactated Ringers 1,000 ML 100 ML IVCONT (08:11)
[2024-01-17 10:18] VITALS: BP 118/60; PULSE 60; RESP 16; TEMP 36.2; O2SAT 98
--- NOTE | 2024-01-17 10:22 | PM.OP ---
Brief Operative Note Date of Service: 01/17/24 Pre-op diagnosis: Screening Post-op diagnosis: other (Polyps) Procedure: Colonoscopy to the cecum with hot snare polypectomy x 2, and cold snare polypectomy x 1 Surgeon: Prasanna Licea MD Anesthesia: MAC Was an Restrooms Or Lounges Maid used for this Procedure?: No Estimated blood loss (mL): 2.00 Pathology: other (A. Polyp at 60cm B. Polyp at 30cm C. Polyp at 15cm) Condition: stable Disposition: PACU
[2024-01-17 10:33] VITALS: BP 113/64; PULSE 57; RESP 16; TEMP 36.1; O2SAT 98
--- NOTE | 2024-01-17 10:48 | OP_ITS ---
DATE OF SERVICE: 01/17/2024 SURGEON: Prasanna Licea MD INDICATIONS: The patient presents for evaluation of colorectal cancer screening. Full consent has been obtained from her for this, including risks of bleeding and perforation. PREOPERATIVE DIAGNOSIS: Colorectal cancer screening. POSTOPERATIVE DIAGNOSIS: PROCEDURE PERFORMED: Colonoscopy to cecum with hot snare polypectomy x2 and cold snare polypectomy x1. ESTIMATED BLOOD LOSS: COMPLICATIONS: ANESTHESIA: Monitored anesthesia care. ASSISTANTS: SPECIMENS: POSTOPERATIVE DIAGNOSES: Colorectal cancer screening, colon polyps, diverticulosis, internal hemorrhoids. DESCRIPTION OF PROCEDURE: The patient was placed in left lateral decubitus position. The digital rectal exam revealed external hemorrhoidal tissue. The Olympus video pediatric colonoscope was entered into the rectum, advanced to the cecum with the assistance of abdominal wall pressure. Once in the cecum I did identify normal-appearing cecal pouch with appendiceal orifice and a normal-appearing ileocecal valve. There was transillumination of light deep in the right lower quadrant. The entire cecum appeared normal. The scope was slowly withdrawn assessing all mucosal surfaces carefully. Preparation was excellent. At 60 cm, was an approximately 12 mm polyp, which was removed by hot snare polypectomy recovered by suction. The polypectomy site appeared clean, without any sign of residual polyp nor bleeding. At 30 cm, was an approximately 8 mm polyp, which was removed by hot snare polypectomy and recovered by suction. The polypectomy site appeared clean, without any sign of residual polyp nor bleeding. At 15 cm, was a flat, approximately 5 mm polyp, removed by cold snare polypectomy, recovered by suction. The polypectomy site appeared clean, without any sign of residual polyp nor significant bleeding. I did not visualize any other polyps, colitis, or angiodysplasia. There was a mild amount of sigmoid diverticulosis. In the rectum, scope was retroflexed visualizing internal hemorrhoids, but no other pathology. The rectal mucosa appeared normal. Scope was straightened and withdrawn from the patient. She tolerated the procedure well and was returned to recovery area in stable condition. IMPRESSION: 1. Colon polyps. 2. Diverticulosis. 3. Internal hemorrhoids. 4. External hemorrhoids. PLAN: The results of the pathology will be checked. I would recommend a repeat colonoscopy in 5 years for further screening. She will otherwise see me on a p.r.n. basis. She was advised not to use any aspirin and NSAIDs for 1 week. MD DIANA Rabago/ALFONSO / [phone]
== END 2024-01-17 11:03 | disposition home or self-care (01) ==
PROVIDERS: PCP Internal Medicine; Visit Provider Internal Medicine
PROC: 0DJD8ZZ Inspection of Lower Intestinal Tract, Via Natural or Artificial Opening Endoscopic (ICD-10-PCS; CPT 45378; principal; 2024-01-17 08:40)
DX: Z12.11 Encounter for screening for malignant neoplasm of colon (principal); D12.4 Benign neoplasm of descending colon; K57.30 Diverticulosis of large intestine without perforation or abscess without bleeding; K64.8 Other hemorrhoids; J45.909 Unspecified asthma, uncomplicated; Z79.891 Long term (current) use of opiate analgesic
CPT/HCPCS: 45385; 88305; J2250; J2704

== ENCOUNTER 2024-04-26 17:43 | Outpatient (AMB) | payer OTHER, SELFPAY ==
--- NOTE | 2024-04-26 17:43 | MHC.PC.OV ---
Intake Visit Reasons: sick Utilization Management Um Nurse Required: No Information Interpreted: non-clinical & clinical Mail Distribution Clerk: Not Required per policy Accompanied by: Self / Same As Patient Allergies No Known Allergies Allergy (Verified 11/30/23 10:15) Tobacco use date assessed: 04/19/23 Dental Screening Dental Screen Date: 05/30/23 HPI sick HPI Details 68-year-old female with a history of breast cancer osteoporosis COPD calling in for an acute problem. 2 days ago head cold congested, cough, no fevers, no sore throat, PFSH Medical History History of Mohs micrographic surgery for skin cancer Arthritis History of right breast cancer Swelling of right knee joint Asthma Lumbar degenerative disc disease Plantar wart Breast cancer Depression Surgical History H/O colonoscopy History of right mastectomy History of knee surgery History of total abdominal hysterectomy and bilateral salpingo-oophorectomy History of foot surgery Family History Father Dementia Spinal stenosis Mother Breast cancer COPD (chronic obstructive pulmonary disease) Brother Depression Substance abuse Sister Depression Neuropathy Other Arthritis Mental illness in member of household Substance abuse in family Social History Housing: Apartment Are you a primary child care associate teacher to a significant other at home: No Alcohol intake: current Alcohol intake frequency: 0-2 drinks per day Alcohol type: hard liquor Comment: QD 2-3 drinks Patient Tobacco Use Status: Never used Tobacco Tobacco use type: Cigarette Years Smoked: 1997 quit e-Cigarette/Vaping Use: Never Used Second Hand Smoke Exposure: No service: No Current occupational status: retired Cognitive needs: No Hearing needs: No Vision needs: Yes Questionnaire Thrive Questionnaire Date Thrive assessed: 05/30/23 KAREN-7 AMB Questionnaire KAREN-7 Date KAREN - 7 assessed: 05/30/23 Source: Developed by Drs. Prasanna Christine, Janina Esquivel, Curtis Wilkinson and colleagues, with an educational jayjay from [employer]. Physical exam (Primary Care) Tobacco/Smoking Status: Tobacco use Status Tobacco use date assessed 04/19/23 04/26/24 17:44 Patient Tobacco Use Status Never used Tobacco 04/26/24 17:44 Tobacco use type Cigarette 04/26/24 17:44 e-Cigarette/Vaping Use Never Used 04/26/24 17:44 Thrive Assessment: Date of Thrive Assessment Date Thrive assessed 05/30/23 04/26/24 17:44 Telehealth Telehealth Telehealth Platform: Telephone Location of provider rendering services: practice address Location of patient: address on file Patient Identification confirmed using: Name, : Yes Telehealth method: voice only Patient verbally consented to treatment: Yes Patient verbally consented to billing insurance company: Yes Patient informed of any privacy concerns related to visit: Yes Minutes spent on Phone/Video with Pt.: 15 Coding Level of Care Code Tele Est Pt Level 3 (22608) Diagnoses Cough R05.9 Assessment & Plan Assessment & Plan (1) Cough: Code(s): R05.9 - Cough, unspecified Category: Medical Plan: Discussed with the patient that most often this is going to be viral. had the problem and is getting better without any other treatment. For the sore throat can take Cepacol lozenges, discussed about Delsym to help with dry cough so she can rest and advised to increase oral fluids. Patient also can take Tylenol for chills and fever. Flu/RSV and COVID testing requested. Orders: Orders SARS-CoV2/FLU/RSV Today R05.9 - Cough, unspecified
--- OUTSIDE RECORDS SUMMARY | 2024-04-26 17:44 | XMS_ITS | Patient Health Record ---
Author Organization [facility] [place] [facility] [place] Address [address] [place]k [place] [address] Care Team Providers Care Revenue Cycle Specialist Name Role Phone Olga Lidia Olivo Primary Care Provider Srinivasa Dyer Unavailable [phone] Allergies Allergen (clinical drug ingredient) Drug/Non Drug Allergy documented on EMR Reaction Allergy Type Onset Date Status Seasonale runny frank Drug Allergy Active Cat dander Cat Dander Unknown Allergy Active Dust Mites Unknown Allergy Active Reason For Referral No Information Medications Medication SIG (Take, Route, Frequency, Duration) Notes Start Date End Date Status Glucosamine Active Vitamin B12 Active Basliia Allergy Acti ve Vitamin D3 Active Escitalopram Oxalate 10 MG 1 tablet Oral ly Once a day Active Raloxifene HCl 60 MG 1 tablet Orally Onc e a day Active Albuterol Sulfate 108 (90 Base) MCG/ACT as directed Inhalation Acti ve Social History Tobacco Use: Social History Observation Description Date Details (start date - stop date) Former Smoker NA - 03/20/1997 Tobacco Use/Smoking Question Answer Notes Are you a: former smoker When did you stop smoking? 03/20/1997 Additional Findings: Tobacco Non-User Ex-cigaret te smoker Alcohol Screen Question Answer Notes Did you have a drink contain ing alcohol in the past year? Yes How often did you have a dri nk containing alcohol in the past year? 4 or more times a week (4 points) Points 4 Interpretation Positive Tobacco use other than smoking: Question Answer Notes Are you an other tobacco user? No Problems Problem Type SNOMED Code ICD Code Onset Dates Problem Status W/U Status Risk Notes Problem Acquired hammer toe of right foot (1026997122475 105) Other hammer toe(s) (acquired), right foot (M20.41) Active confirmed Problem Acquired hammer toe of left foot (3472462667196 103) Other hammer toe(s) (acquired), left foot (M20.42) Active confirmed Plan Of Treatment Pending Test Test Name Order Date X ray : Foot, left 3V 06/30/2022 X ray : Foot, right 3V 06/30/2022 Insurance Providers Payer Name Payer Address Payer Phone Subscriber Number Group Number Insured Name Patient Relationship to Insured Coverage Start Date Coverage End Date [employer] Medicare [id number] [address] [address] [place] [address] [id number] Gillian Mccarty Self - patient is the insured Medical (General) History Medical History History ICD Code asthma breast cancer Depression Lumbar degenerative disc disease Plantar wart Back,Hip,and Knee pain covid-19 Lung disease Osteoporosis Measles Mumps Chicken pox Surgical History Surgery Date(Month/Year) foot surgery knee surgery right mastectomy 2009 total abdominal hysterectomy and bilater al salpingo-oophorectomy
--- OUTSIDE RECORDS SUMMARY | 2024-04-26 17:44 | XMS_ITS | Patient Health Record ---
Author Organization [facility] Address [address] [place] [address] Care Team Providers Care Shop Firer/Fireman Name Role Phone Po Olga Lidia ARANA Primary Care Provider Prasanna Strong [phone] ALLERGIES Allergen (clinical drug ingredient) Drug/Non Drug Allergy documented on EMR Reaction Allergy Type Onset Date Status Horses Unknown Allergy Active Dust Mites Unknown Allergy Active Cat dander cats (uncoded) Unknown Allergy Acti ve RESULTS Component Value Reference Range Notes Pathology (Not yet reviewed by provider) Interpretation: Performing Lab:[facility], [address] [place] [id number] Notes/Report: REASON FOR REFERRAL No Information MEDICATIONS Medication SIG (Take, Route, Frequency, Duration) Notes Start Date End Date Status Escitalopram Oxalate 10 MG Oral for 90 Active Raloxifene HCl 60 MG Oral for 90 Active Calcium Active Vitamin D Active Albuterol Sulfate HFA 108 (90 Base) MCG/ACT 1 puff as needed Inhalation every 4 hrs Active SOCIAL HISTORY Sex Assigned At : Social History Observation Description Sex Assigned At Unknown PROBLEMS Problem Type ICD Code Onset Dates Problem Status W/U Status Risk SNOMED Code Notes Problem Colon cancer screening (Z12.11) Active confirmed Colon can cer screening (515584256) Problem Encounter for other preprocedural examination (Z01.818) Active confirmed Pre-procedure evaluation check (067259931) Problem Diverticulosis of large intestine without perforation or abscess without bleeding (K57.30) Active confirmed Diverticul ar disease of colon (898737627) VITAL SIGNS Blood pressure diastolic 00 mm Hg 09/19/2023 Height 67.5 in 09/19/2023 Blood pressure systolic 00 mm Hg 09/19/2023 Weight 129 lbs 09/19/2023 BMI 19.90 kg/m2 09/19/2023 Encounters Encounter Location Date Provider Diagnosis [facility] [place] Outpatient [address] [place], [place] [id number] 01/17/2024 Prasanna Licea Colon cancer screeni ng Z12.11 ; Colon polyps K63.5 ; Diverticulosis of large intestine without perforation or abscess without bleeding K57.30 and Other hemorrhoids K64.8 [facility] [address] [place] [address] 09/19/2023 Prasanna Licea Colon cancer screeni ng Z12.11 and Encounter for other preprocedural examination Z01.818 ASSESSMENTS Encounter Date Diagnosis Assessment Notes Treatment Notes Treatment Clinical Notes 01/17/2024 Colon cancer screening (ICD-10 - Z12.11) 01/17/2024 Colon polyps (ICD-10 - K63.5) 09/19/2023 Colon cancer screening (ICD-10 - Z12.11) 09/19/2023 Encounter for other preprocedural examination (ICD-10 - Z01.818) 01/17/2024 Diverticulosis of large intestine without perforation or abscess without bleeding (ICD-10 - K57.30) 01/17/2024 Other hemorrhoids (ICD-10 - K64.8) PLAN OF TREATMENT Pending Test Test Name Order Date Pathology 01/17/2024 Future Test Test Name Order Date COLONOSCOPY 07/03/2013 COLONOSCOPY 09/19/2023 Insurance Providers Payer Name Payer Address Payer Phone Subscriber Number Group Number Insured Name Patient Relationship to Insured Coverage Start Date Coverage End Date [facility] [address] [address] [place] [address] [phone] [id number] ELVA ELLSWORTH Self - patient is the insured MEDICAL (GENERAL) HISTORY Medical History History ICD Code COPD Denies [place],DM,CVA,renal disease Depression History of right breast cancer Seasonal allergies Osteoporosis Arthritis Negative screening colonoscopy in 08/2013 Surgical History Surgery Date(Month/Year) Right mastecomy 2007--then received Tamo xifen for 5 years Knee surgery Foot surgery 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
--- OUTSIDE RECORDS SUMMARY | 2024-04-26 17:45 | XMS_ITS ---
Author Organization [facility] Address [address] [place] [address] Care Team Providers Care Chair Mechanic Name Role Phone Olga Lidia Olivo MD Primary Care Provider Prasanna Strong [phone] ALLERGIES Allergen (clinical drug ingredient) Drug/Non Drug Allergy documented on EMR Reaction Allergy Type Onset Date Status Horses Unknown Allergy Active Dust Mites Unknown Allergy Active Cat dander cats (uncoded) Unknown Allergy Acti ve REASON FOR VISIT Patient presents today for colon screening MEDICATIONS Medication SIG (Take, Route, Frequency, Duration) Notes Start Date End Date Status Escitalopram Oxalate 10 MG Oral for 90 Active Raloxifene HCl 60 MG Oral for 90 Active Calcium Active Vitamin D Active Albuterol Sulfate HFA 108 (90 Base) MCG/ACT 1 puff as needed Inhalation every 4 hrs Active SOCIAL HISTORY Tobacco Use: Social History Observation Description Date Details (start date - stop date) Never Smoker NA - NA Sex Assigned At : Social History Observation Description Sex Assigned At Unknown Tobacco Use/Smoking Question Answer Notes Patient is a nonsmoker PROBLEMS Problem Type ICD Code Onset Dates Problem Status W/U Status Risk SNOMED Code Notes Problem Colon cancer screening (Z12.11) Active confirmed Colon cancer screening (830010204) Problem Encounter for other preprocedural examination (Z01.818) Active confirmed Pre-procedure evaluation check (891753135) VITAL SIGNS BMI 19.90 kg/m2 09/19/2023 Blood pressure systolic 00 mm Hg 09/19/19 24 Blood pressure diastolic 00 mm Hg 024 Height 67.5 in 09/19/2023 Weight 129 lbs 09/19/2023 Encounters Encounter Location Date Provider Diagnosis [facility] [address] [place] [address] 09/19/2023 Prasanna Licea Colon cancer screeni ng Z12.11 and Encounter for other preprocedural examination Z01.818 ASSESSMENTS Encounter Date Diagnosis Assessment Notes Treatment Notes Treatment Clinical Notes 09/19/2023 Colon cancer screening (ICD-10 - Z12.11) 09/19/2023 Encounter for other preprocedural examination (ICD-10 - Z01.818) PLAN OF TREATMENT Future Test Test Name Order Date COLONOSCOPY 09/19/2023 Next Appt Details Follow Up: prn, Reason:
--- OUTSIDE RECORDS SUMMARY | 2024-04-26 17:45 | XMS_ITS | Clinical Summary ---
Author Organization [employer] Address [address] [place] [address] Care Team Providers Care Qualifications Examiner Name Role Phone Unavailable Primary Care Provider Unavailabl e Immunizations Name Administration Dates Next Due Moderna Covid-19 Vaccine 6+ Bivalent 05/13/2022 Social History Tobacco Use Types Packs/Day Years Used Date Smoking Tobacco: Never Assessed Comments Unknown Sex and Gender Information Value Date Recorded Sex Assigned at Female 05/13/2022 11:29 AM EST Legal Sex Female 11:23 AM EST Gender Identity Female 05/13/2022 11:29 AM EST Sexual Orientation Straight 05/13/2022 11 :29 AM EST Plan of Treatment Health Maintenance Due Date Last Done Comments CT Colonography 1956 Colonoscopy 1956 Colorectal Cancer Screening 1956 Depression Screening 1956 FIT DNA/Cologuard 1956 FIT 1956 FOBT 1956 SDOH Screening 1956 Sigmoidoscopy 1956 Alcohol/Substance Use Screening 1968 Tobacco Screening 1968 Hepatitis C Screening 1974 DTaP/Tdap/Td Vaccines (1 - Tdap) 07/30/1975 Mammogram 1996 Pneumococcal Vaccine: 50+ Ye ars (1 of 1 - PCV) 2006 Zoster Vaccines (1 of 2) 2006 COVID-19 Vaccine (2 - 2023-2 5 season) 2023 05/13/2022 Influenza Vaccine (#1) 2023 RSV Patients and Pa tients Aged 60 years or older (1 - 1-dose 75+ series) 07/30/2031 HIB Vaccines Aged Out No longer eligi ble based on patient's age to complete this topic HPV Vaccines Aged Out No longer eligi ble based on patient's age to complete this topic Hepatitis A Vaccines Aged Out No long er eligible based on patient's age to complete this topic Hepatitis B Vaccines Aged Out No long er eligible based on patient's age to complete this topic IPV Vaccines Aged Out No longer eligi ble based on patient's age to complete this topic Meningococcal Vaccine Aged Out No acacia edyta eligible based on patient's age to complete this topic RSV under 20 months Aged Out No longe r eligible based on patient's age to complete this topic Rotavirus Vaccines Aged Out No longer eligible based on patient's age to complete this topic Insurance [facility] MEDICARE REPLACEMENT
--- OUTSIDE RECORDS SUMMARY | 2024-04-26 17:45 | XMS_ITS ---
Author Organization [facility] Address [address] [place] [address] Care Team Providers Care Bill Adjuster Name Role Phone Olga Lidia Olivo MD Primary Care Provider Prasanna Strong [phone] REASON FOR VISIT screening PROBLEMS Problem Type ICD Code Onset Dates Problem Status W/U Status Risk SNOMED Code Notes Problem Diverticulosis of large intestine without perforation or abscess without bleeding (K57.30) Active confirmed Diverticul ar disease of colon (292028552) Encounters Encounter Location Date Provider Diagnosis [facility] [place] Outpatient [address] [place] [phone] 01/17/2024 Prasanna Licea Colon cancer scree taylor Z12.11 ; Colon polyps K63.5 ; Diverticulosis of large intestine without perforation or abscess without bleeding K57.30 and Other hemorrhoids K64.8 ASSESSMENTS Encounter Date Diagnosis Assessment Notes Treatment Notes Treatment Clinical Notes 01/17/2024 Colon cancer screening (ICD-10 - Z12.11) 01/17/2024 Colon polyps (ICD-10 - K63.5) 01/17/2024 Diverticulosis of large intestine without perforation or abscess without bleeding (ICD-10 - K57.30) 01/17/2024 Other hemorrhoids (ICD-10 - K64.8) PLAN OF TREATMENT No Information
== END 2024-04-26 18:15 | disposition home or self-care (01) ==
LOC: HO.HMCH 17:43
PROVIDERS: PCP Internal Medicine; Visit Provider Internal Medicine
DX: R05.9 Cough, unspecified (principal)

== ENCOUNTER → 2024-04-26 17:43 | Outpatient (BNVA) | payer OTHER, SELFPAY | PROVIDERS: PCP Internal Medicine; Visit Provider Internal Medicine ==

== ENCOUNTER 2024-06-04 09:52 | Outpatient (AMB) | payer OTHER, SELFPAY ==
--- NOTE | 2024-06-04 10:09 | MHC.PC.OV ---
Vital Signs 06/04/24 10:10 Height 5 ft 7.5 in Weight 127 lb BMI 19.6 BP 118/62 Blood Pressure Location Lt brachial Position Sitting Pulse 65 Pulse Source Pulse Oximeter Pulse Oximetry (%) 97 Oxygen Delivery Method Room Air Intake Visit Reasons: annual exam Allergies No Known Allergies Allergy (Verified 06/04/24 10:20) Medication List - Last Reconciled 06/04/24 by Olga Lidia Olivo MD albuterol sulfate 90 mcg/actuation 2 puffs PO QID PRN calcium carbonate (Calcium 600) 600 mg PO DAILY cholecalciferol (vitamin D3) 50 mcg PO DAILY escitalopram oxalate (Lexapro) 10 mg PO DAILY glucosamine HCl 500 mg PO DAILY raloxifene 60 mg PO DAILY Tobacco use date assessed: 06/04/24 Fall risk assessment: No Falls in past year Last assessed Fall Risk: 06/04/24 Dental Screening Dental Screen Date: 06/04/24 Did you have a dental visit in the last 12 months?: Yes Did you have a dental problem in the last 6 months where you did not have access to dental care?: No Was dental information given to patient?: Patient has dentist HPI annual exam HPI Details 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 [facility] Medical History History of Mohs micrographic surgery for skin cancer Arthritis History of right breast cancer Swelling of right knee joint Asthma Lumbar degenerative disc disease Plantar wart Breast cancer Depression Surgical History H/O colonoscopy History of right mastectomy History of knee surgery History of total abdominal hysterectomy and bilateral salpingo-oophorectomy History of foot surgery Family History Father Dementia Spinal stenosis Mother Breast cancer COPD (chronic obstructive pulmonary disease) Brother Depression Substance abuse Sister Depression Neuropathy Other Arthritis Mental illness in member of household Substance abuse in family Social History Housing: Apartment Are you a primary personal care assistant to a significant other at home: No Alcohol intake: current Alcohol intake frequency: 0-2 drinks per day Alcohol type: hard liquor Comment: QD 2-3 drinks Patient Tobacco Use Status: Never used Tobacco Tobacco use type: Cigarette Years Smoked: 1997 quit e-Cigarette/Vaping Use: Never Used Second Hand Smoke Exposure: No service: No Current occupational status: retired Cognitive needs: No Hearing needs: No Vision needs: Yes Questionnaire PHQ-9 Over the last 2 weeks, how often have you been bothered by any of the following problems? 1. Little interest or pleasure in doing things: not at all 2. Feeling down, depressed, or hopeless: not at all 3. Trouble falling or staying asleep, or sleeping too much: not at all 4. Feeling tired or having little energy: not at all 5. Poor appetite or overeating: not at all 6. Feeling bad about yourself - or that you are a failure or have let yourself or your family down: not at all 7. Trouble concentrating on things, such as reading the newspaper or watching television: not at all 8. Moving or speaking so slowly that other people could have noticed. Or the opposite - being so fidgety or restless that you have been moving around a lot more than usual: not at all 9. Thoughts that you would be better off or of hurting yourself in some way: not at all Total score: 0 Depression Screening Interpretation: Negative Depression Screening Done: Yes 42554 - PHQ-9 Billing: Yes Source: Developed by Drs. Prasanna Christine, Janina Esquivel, Curtis Wilkinson and colleagues, with an educational jayjay from [employer]. Thrive Questionnaire Date Thrive assessed: 06/04/24 I am a: Patient What is your living situation today?: I have a steady place to live Within the past 12 months, did the food you bought not last and you didn't have the money to get more?: Never true Within the past 12 months, did you worry whether your food would run out before you got money to buy more?: Never true Do you have trouble paying for medicines?: No Do you have trouble getting transportation to medical appointments?: No Do you have trouble paying your heating and electricity bill?: No Do you have trouble taking care of your child, family member or friend?: No Do you have trouble with day-to-day activities such as bathing, preparing meals, shopping, managing finances, etc.?: No Are you currently unemployed and looking for a job?: No Are you interested in more education?: No Please select the resources that you would like help with: None Currently or been in a relationship where the following occur: No concerns reported THRIVE Score: 0 AUDIT C Alcohol Use Questionnaire (AUDIT-C) 1. How often do you have a drink containing alcohol?: 4 or more times a week 2. How many drinks containing alcohol do you have on a typical day when you are drinking?: 1 or 2 3. How often do you have six or more drinks on one occasion?: Never Total Score: 4 KAREN-7 AMB Questionnaire KAREN-7 Date KAREN - 7 assessed: 06/04/24 Feeling nervous, anxious, or on edge: 0 = Not at all Not being able to stop or control worryin = Not at all Worrying too much about different things: 0 = Not at all Trouble relaxin = Not at all Being so restless that it is hard to sit still: 0 = Not at all Becoming easily annoyed or irritable: 0 = Not at all Feeling afraid as if something awful might happen: 0 = Not at all Total KAREN-7 score (0-4 normal; 5-9 mild; 10-14 moderate; 15-21 severe): 0 Source: Developed by Drs. Prasanna Christine, Janina Esquivel, Curtis Wilkinson and colleagues, with an educational jayjay from [employer]. KAREN-7 Assessment Billing KAREN-7 Assessment Tool: KAREN-7 Assessment 89799 Review of Systems Const Denies poor appetite and Denies weakness Eyes Denies no additional complaints ENT Reports Normal hearing present, Denies dizziness, Denies nasal congestion, Denies tinnitus and Denies sore throat Card Denies chest pain, Denies syncope, Denies rapid heart rate and Denies dyspnea Resp Denies cough and Denies dyspnea GI Denies change in stool character, Reports constipation, Denies diarrhea, Denies nausea and Denies vomiting Denies urinary frequency, Denies difficulty voiding and Denies dysuria Neuro Reports Normal hearing present, Denies confusion, Denies dizziness, Denies syncope and Denies weakness Psych Denies confusion Physical exam (Primary Care) Vital Signs: Last Vital Signs Pulse 65 06/04/24 10:10 BP 118/62 06/04/24 10:10 Pulse Ox 97 06/04/24 10:10 Oxygen Delivery Method Room Air 06/04/24 10:10 BMI result Body Mass Index 19.6 Tobacco/Smoking Status: Tobacco use Status Tobacco use date assessed 06/04/24 06/04/24 10:23 Patient Tobacco Use Status Never used Tobacco 06/04/24 10:10 Tobacco use type Cigarette 06/04/24 10:10 e-Cigarette/Vaping Use Never Used 06/04/24 10:10 PHQ-9: PHQ-9 Score PHQ-9: Total score 0 06/04/24 11:04 Depression Screening Interpretation: Negative Thrive Assessment: Date of Thrive Assessment Date Thrive assessed 06/04/24 06/04/24 10:23 Currently or been in a relationship where the following occur: No concerns reported Const General: No confusion Orientation/consciousness: No confusion HENMT Head: Yes normocephalic Ears: external ears normal and TM's normal bilaterally Face and sinus: Yes normal facial exam Mouth: moist mucous membranes Throat: Yes tonsils normal Eyes Conjunctivae: conjunctivae normal Pupils: Equal, round and reactive pupils present and Pupil accommodation reflex normal Direct Ophthalmoscopy: normal light reflex Neck Neck: No lymphadenopathy Thyroid: Thyroid normal Chest Chest palpation & inspection: normal inspection of the chest Resp Effort & Inspection: normal respiratory effort and no audible wheezes Auscultation: clear to auscultation bilaterally, no crackles, no wheezes and lung sounds not diminished Cardio Rate: regular rate Rhythm: regular rhythm Peripheral pulses: radial pulses present and dorsalis pedis present GI Palpation (GI): no masses Auscultation: normal bowel sounds and normoactive bowel sounds Rectal Exam - Female: deferred Skin General skin exam: no rashes or lesions noted Rashes: no rashes Neuro General: No confusion Cranial nerves: Yes Equal, round and reactive pupils present and Yes Normal hearing present Cognition (Neuro): normal cognition Gait exam (Neuro): Normal gait present Motor exam (neuro): 5/5 motor strength present throughout Deep tendon reflexes (DTR's): Right brachioradialis reflex intensity grade: 2+, Left brachioradialis reflex intensity grade: 2+, Right patellar reflex intensity grade: 2+ and Left patellar reflex intensity grade: 2+ Extrem General: No edema Coding Level of Care Code Est Pt Prev Care >65y(46703) Diagnoses Annual physical exam Z00.00 Malignant neoplasm of right female breast, unspecified estrogen receptor status, unspecified site of breast C50.911 Breast location: unspecified site of breast Estrogen receptor status: unspecified Laterality: right Patient sex: female Depression F32.9 Age-related osteoporosis without current pathological fracture M81.0 Osteoporosis type: age-related Presence of current pathological fracture: without current pathological fracture COPD (chronic obstructive pulmonary disease) J44.9 Additional Codes KAREN-7 Assessment Billing - KAREN-7 Assessment Tool: KAREN-7 Assessment 64915 ([id number]) PHQ-9 - 04285 - PHQ-9 Billing: Yes ([id number]) Assessment & Plan Assessment & Plan (1) Annual physical exam: Code(s): Z00.00 - Encounter for general adult medical examination without abnormal findings Category: Medical Plan: Patient is advised to eat healthy, keep well hydrated, keep active and have adequate sleep. (2) Breast cancer: Comment: Right mastectomy 2007 [facility] February 2022 mammogram Code(s): C50.919 - Malignant neoplasm of unspecified site of unspecified female breast Category: Medical Qualifiers: Breast location: unspecified site of breast Estrogen receptor status: unspecified Laterality: right Patient sex: female Qualified Code(s): C50.911 - Malignant neoplasm of unspecified site of right female breast Plan: Patient is up-to-date with mammogram (3) Depression: Comment: Dr. Bhavna chavira Code(s): F32.9 - Major depressive disorder, single episode, unspecified Category: Medical Plan: Continue with counseling and therapy on Lexapro (4) Osteoporosis: Comment: May 2020, June 2022 Code(s): M81.0 - Age-related osteoporosis without current pathological fracture Category: Medical Qualifiers: Osteoporosis type: age-related Presence of current pathological fracture: without current pathological fracture Qualified Code(s): M81.0 - Age-related osteoporosis without current pathological fracture Plan: 07/07/2022 last bone density on raloxifene (5) COPD (chronic obstructive pulmonary disease): Code(s): J44.9 - Chronic obstructive pulmonary disease, unspecified Category: Medical Plan: On albuterol inhaler as needed Plan History of Present Illness The patient is a 68-year-old female presenting with a persistent cough as part of her annual physical examination. She has a history of asthma, managed with minimal use of an albuterol inhaler, typically about once weekly. Her respiratory history is further complicated by a diagnosis of COPD, which has been stable. Additionally, she has a history of breast cancer in remission since 2007, osteoporosis requiring medication, lumbar radiculopathy, and a recent dermatological intervention for a squamous cell carcinoma lesion on her left leg. She routinely uses medications such as Lexapro and anti-osteoporotic agents like Raloxifene. The patient's health regimen includes routine mammograms and colonoscopies, with the last colonoscopy confirming polyps, necessitating a follow-up in five years. Despite dry eyes and transient postural dizziness, she maintains reasonable control over her symptoms and adheres to health maintenance schedules. Health Maintenance - Mammogram up to date as of last month - Bone density completed in June 2022 - Colonoscopy completed in January 2024; next due in five years - Routine eye exam completed; managing dry eye with drops - Vaccination status: Shingles vaccine pending; up to date on pneumonia and other vaccinations - Cholesterol: Last tested in 2021; a repeat test recommended - Glucose control: Educated on hydration importance - Lifestyle modifications for alcohol use Social History - Alcohol: Consumes two to three drinks daily - Smoking: Former smoker, currently abstinent - Support System: Confides in sister; limited communication with - Activity & Mobility: Limits noted with lumbar issues, uses Tylenol for back pain - Functionality: Primarily independent but with noted postural dizziness Review of Systems - Respiratory: Reports cough - Ocular: Reports dry eyes - Neurological: Denies dizziness unless standing quickly - Cardiovascular: Denies chest pain and dyspnea - Gastrointestinal: Denies swallowing difficulties Physical Exam General: Cooperative, healthy appearing, comfortable, no acute distress and well developed Orientation: Patient oriented x3 Limitations: No limitations Head: Normal to inspection Ears: Hearing grossly normal bilaterally Nose: Normal external nose present, but patient reports runny nose, possibly due to allergies Face and sinus: Normal facial exam Eyes: Appearance normal, both eyes and all related structures, but patient reports dry eye and uses drops Neck: Normal visual inspection and Yes full ROM Respiratory: Normal respiratory effort and able to speak in complete sentences. Clear to auscultation bilaterally, no wheezing noted during exam Cardiovascular: Regular rate and rhythm. Normal S1 and S2 GI: Normal to inspection. Soft to palpation and nontender Skin: No rashes or lesions noted, but patient had squamous cell carcinoma removed from left salazar approximately six months ago Neuro: Patient oriented x3 Extremities: Normal to inspection, patient reports occasional dizziness when standing after sitting for long periods, advised to stay hydrated Results - Labs: Blood work normal including CBC, electrolytes, renal and liver function - Cholesterol: Last checked in 2021 - Bone Density: Completed June 2022 - Imaging: Mammogram up to date Plan The ongoing management plan includes continuation of Lexapro for depression, while encouraging exploration of support dynamics. Osteoporosis is managed with continued supplementation of calcium and vitamin D. Albuterol inhaler is used on a need basis for managing COPD and asthma. Regular dermatologic monitoring and eye exams are advised to manage dry eyes and skin cancer history. She is counseled on alcohol use moderation and encouraged increased hydration for kidney health. A follow-up on cholesterol testing is scheduled in three months. Mammograms and bone density screening remain up to date. Recommendations include the potential shingles vaccine administration, understanding it is not obligatory but beneficial. Scheduled follow-ups highlight the importance of ongoing monitoring and adaptive lifestyle changes. Patient was informed and verbally consented to the use of an ambient scribe for clinic note documentation during this visit. Discussion Notes I discussed with the patient the importance of maintaining effective control of her COPD using the albuterol inhaler and confirmed her understanding of the regimen. We covered the need for hydration and its impact on kidney and overall health while stressing the reduction of alcohol intake. Future plans include the reassessment of her cholesterol levels and follow-up checks on other chronic conditions. I elaborated on the benefit of vaccinations such as shingles although elective, to prevent complications. Her mental health was addressed with continued Lexapro use and encouragement of using her support system, specifically improving communication with her sister. We further reviewed the preventive measures, such as maintaining routine cancer screenings and vision care. Patient Instructions - Continue with all current medications including calcium, vitamin D, and Lexapro - Use albuterol inhaler as needed; inform us if usage increases - Schedule a cholesterol test in three months; continue dietary monitoring - Increase daily water intake ensuring at least six to eight small bottles - Consider receiving the shingles vaccine - Limit alcohol intake to no more than one drink per day - Maintain routine medical checkups and actively monitor any changes in symptoms - Lean on social support networks, especially communication with a trusted family member like her sister Orders: Orders Complete Blood Count Auto Diff 3 Months M81.0 - Age-related osteoporosis without current pathological fracture Lipid Panel 3 Months E78.00 - Pure hypercholesterolemia, unspecified, M81.0 - Age-related osteoporosis without current pathological fracture Thyroid Stimulating Hormone 3 Months M81.0 - Age-related osteoporosis without current pathological fracture Vitamin B12 and Folate 3 Months M81.0 - Age-related osteoporosis without current pathological fracture Vitamin D 25-OH Total 3 Months M81.0 - Age-related osteoporosis without current pathological fracture XR DEXA axial skeleton 3 Months M81.0 - Age-related osteoporosis without current pathological fracture Comprehensive Met. Panel 3 Months M81.0 - Age-related osteoporosis without current pathological fracture Free T4 (Free Thyroxine) 3 Months M81.0 - Age-related osteoporosis without current pathological fracture
[2024-06-04 10:10] VITALS: BP 118/62; PULSE 65; O2SAT 97; BMI 19.6
--- OUTSIDE RECORDS SUMMARY | 2024-06-04 11:03 | XMS_ITS ---
Author Organization [facility] Address [address] [place] [address] Care Team Providers Care Shorth[place] Reporter Name Role Phone Olga Lidia Olivo MD Primary Care Provider Prasanna Strong [phone] REASON FOR VISIT screening Problems Problem Type SNOMED Code ICD Code Onset Dates Problem Status W/U Status Risk Notes Problem Diverticular disease of colon ([id number]) Diverticulosis of large intestine without perforation or abscess without bleeding (K57.30) Active confirmed Encounters Encounter Location Date Provider Diagnosis [facility] [place] [address] [place] [address] [id number] 01/17/2024 Prasanna Licea Colon cancer scree taylor [...] No Information Progress Notes * JOSE ELLSWORTHB:1955 (68 yo F)Acc No.[id number]:01/17/2024 COLON WITH MAC Patient:?SENG, ELVA Provider:?Prasanna Licea MD :1955???Age:68 Y???Sex:Female D ate:01/17/2024 Address:[address] [place] [address] [address] [id number] Pcp:Olga Lidia Olivo MD Subjective: * Chief Complaints: * ???1. Screening. * Medical History:? Objective: * Vitals:? Assessment: * Assessment: 1.?Colon cancer screening - Z12.11 (Primary)???2.?Colon polyps - K63.5???3.?Diverticulosis of large intestine without perforation or abscess without bleeding - K57.30???4.?Other hemorrhoids - K64.8??? Plan: * Treatment: * Procedure Codes:?33230 LESIO N REMOVAL COLONOSCOPY, Modifiers: PT , 0529F INTRVL 3+YRS PTS CLNSCP DOCD, 0528F RCMND FLW-UP 10 YRS DOCD, Modifiers: 1P * * The named appointment provid er may or may not be the originator of this progress note, and it is not deemed complete until electronically signed by the appointment provider. Sign off status: Pending * Provider:?Prasanna Licea MD Date:? 024 Generated for Ivania muir/Halima/Noelsmitting on:?06/04/2024 11:03 AM EDT
--- OUTSIDE RECORDS SUMMARY | 2024-06-04 11:03 | XMS_ITS | Patient Health Record ---
Author Organization [facility] Address [address] [place] [address] Care Team Providers Care Self Pay Collector Name Role Phone Olga Lidia Olivo MD Primary Care Provider Prasanna Strong [phone] Allergies Allergen (clinical drug ingredient) Drug/Non Drug Allergy documented on EMR Reaction Allergy Type Onset Date Status Horses Unknown Allergy Active Dust Mites Unknown Allergy Active cats (uncoded) Unknown Allergy Activ e Results Component Value Reference Range Notes Pathology (Not yet reviewed by provider) Interpretation: Performing Lab:[facility], [address] [place] [id number] Notes/Report: Name: Elva Ellsworth Age/Sex: 68/F : 1955 Unit#: [id number] Attend Dr: Prasanna Licea MD Re01/17/24 Status : [facility] Location: [facility] Disch: SPEC : [id number] RECD : 01/17/24 STATUS: JAZIEL AYALA NUM: [id number] JOBY: 01/17/[address] [facility] [address]: Prasanna Licea MD ENTERED: 01/17/24 40 SP TYPE: Surgical OTHR DR: Olga Lidia Olivo MD ORDERED: HE Stain/9, Gross Micro L4/3 Diagnosis A. Colon, polyp at 6 0 cm, polypectomy: Tubular adenoma; negative for high-grade dysplasia. B. Colon, polyp at 3 0 cm, polypectomy: Hyperplastic polyp. C. Colon, polyp at 1 5 cm, polypectomy: Hyperplastic polyp. Clinical History Pre-Op Dx: Screening Post-Op Dx: Colon po lyps, diverticulosis, hemorrhoids Microscopic Description Microscopic sections reviewed. Material Received A. Polyp at 60 B. Polyp at 30 C. Polyp at 15 Gross Description Received in three parts. Part A: Received in formalin labeled ?polyp at 60? are 3 hyperemic and congested, gonzalez-pink and red-maroon papul ar tissue fragments measuring 0.2, 0.3 and 0.9 cm. The resected base of the largest fragment is inked and the specimen is sectioned and entirely submitted, along with the 2 smaller t issue fragments, submitted in toto, in a cassette labeled A. Part B: Received in formalin labeled ?polyp at 30? is a 0.5 cm hyperemic and congested, pink-red papular tis hugh fragment, bisected and entirely submitted in a cassette labeled B. Part C: Received in formalin labeled ?polyp at 15? is a 0.35 cm gonzalez-pink papular tissue fragments, submitted in toto in a cassette labeled C. CEDS CONTINUED ON NEXT PAGE Name: Elva Ellsworth Age/Sex: 68/F : 1955 Unit#: [id number] Attend Dr: Prasanna Licea MD Re01/17/24 Status : [facility] Location: [facility] Disch: SPEC : [id number] RECD : 01/17/24 STATUS: JAZIEL AYALA NUM: [id number] JOBY: 01/17/24[address] [facility] [address]: Prasanna Licea MD ENTERED: 01/17/24 40 SP TYPE: Surgical OTHR DR: Olga Lidia Olivo MD ORDERED: KEY Stain/9, Herminia Mccann L4/3 Copies To: Olga Lidia Olivo MD [facility] Primary Care,[address] [place], [place] [id number] Prasanna Licea MD [facility] [address] [place] [address] Signed (si gnature on file) Mendy Lee MD 01/18/24 1139 END OF REPORT Reason For Referral No Information Medications Medication SIG (Take, Route, Frequency, Duration) Notes Start Date End Date Status Escitalopram Oxalate 10 MG Oral for 90 Active Raloxifene HCl 60 MG Oral for 90 Active Calcium Active Vitamin D Active Albuterol Sulfate HFA 108 (90 Base) MCG/ACT 1 puff as needed Inhalation every 4 hrs Active Problems Problem Type SNOMED Code ICD Code Onset Dates Problem Status W/U Status Risk Notes Problem Colon cancer screening (766288486) Colon cancer screening (Z12.11) Active confirmed Problem Pre-procedure evaluation check (661121526) Encounter for other preprocedural examination (Z01.818) Active confirmed Problem Diverticular disease of colon (174479103) Diverticulosis of large intestine without perforation or abscess without bleeding (K57.30) Active confirmed Vital Signs Blood pressure diastolic 00 mm Hg 09/19/2023 Height 67.5 in 09/19/2023 Blood pressure systolic 00 mm Hg 09/19/2023 Weight 129 lbs 09/19/2023 BMI 19.90 kg/m2 09/19/2023 Encounters Encounter Location Date Provider Diagnosis [facility] Outpatient [address] [place] [id number] 01/17/2024 Prasanna Licea Colon cancer screeni ng Z12.11 ; Colon polyps K63.5 ; Diverticulosis of large intestine without perforation or abscess without bleeding K57.30 and Other hemorrhoids K64.8 [facility] [address] [place] [phone] 09/19/2023 Prasanna Licea Colon cancer screeni ng Z12.11 and Encounter for other preprocedural examination Z01.818 Assessments Encounter Date Diagnosis (ICD Code) Assessment Notes Treatment Notes Treatment Clinical Notes Section Notes 01/17/2024 Colon cancer screening (ICD-10 - Z12.11) 01/17/2024 Colon polyps (ICD-10 - K63.5) 09/19/2023 Colon cancer screening (ICD-10 - Z12.11) Overall, Elva appears well. Given her negative colonoscopy 10 years ago, her age, and a good clinical appearance, I did recommend a followup colonoscopy for further screening purposes. We did review the rationale for that in regard to colon cancer prevention. Full consent is obtained for this, including risks of bleeding and perforation. The procedure will be done with monitored anesthesia care. Elva was comfortable with this plan. Thank you again for allowing me to participate in Elva's care. I shall continue to keep you advised of her progress. 09/19/2023 Encounter for other preprocedural examination (ICD-10 - Z01.818) Overall, Elva appears well. Given her negative colonoscopy 10 years ago, her age, and a good clinical appearance, I did recommend a followup colonoscopy for further screening purposes. We did review the rationale for that in regard to colon cancer prevention. Full consent is obtained for this, including risks of bleeding and perforation. The procedure will be done with monitored anesthesia care. Elva was comfortable with this plan. Thank you again for allowing me to participate in Elva's care. I shall continue to keep you advised of her progress. 01/17/2024 Diverticulosis of large intestine without perforation or abscess without bleeding (ICD-10 - K57.30) 01/17/2024 Other hemorrhoids (ICD-10 - K64.8) Plan Of Treatment Pending Test Test Name Order Date Pathology 01/17/2024 Future Test Test Name Order Date COLONOSCOPY 07/03/2013 COLONOSCOPY 09/19/2023 Insurance Providers Payer Name Payer Address Payer Phone Subscriber Number Group Number Insured Name Patient Relationship to Insured Coverage Start Date Coverage End Date [facility] [address] [address] [place] [address] [id number] ELVA ELLSWORTH Self - patient is the insured Medical (General) History Medical History History ICD Code COPD Denies NV,DM,CVA,renal disease Depression History of right breast cancer Seasonal allergies Osteoporosis Arthritis Negative screening colonoscopy in 08/2013 Surgical History Surgery Date(Month/Year) Right mastecomy 2007--then received Tamo xifen for 5 years Knee surgery Foot surgery 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
--- OUTSIDE RECORDS SUMMARY | 2024-06-04 11:03 | XMS_ITS ---
Author Organization [facility] Address [address] [place] [address] Care Team Providers Care Interpreter Translator Name Role Phone Olga Lidia Olivo MD Primary Care Provider Prasanna Strong [phone] Allergies Allergen (clinical drug ingredient) Drug/Non Drug Allergy documented on EMR Reaction Allergy Type Onset Date Status Horses Unknown Allergy Active Dust Mites Unknown Allergy Active cats (uncoded) Unknown Allergy Activ e REASON FOR VISIT Patient presents today for colon screening Medications Medication SIG (Take, Route, Frequency, Duration) Notes Start Date End Date Status Escitalopram Oxalate 10 MG Oral for 90 Active Raloxifene HCl 60 MG Oral for 90 Active Calcium Active Vitamin D Active Albuterol Sulfate HFA 108 (90 Base) MCG/ACT 1 puff as needed Inhalation every 4 hrs Active Social History Tobacco Use: Social History Observation Description Date Details (start date - stop date) Never Smoker NA - NA Tobacco Use/Smoking Question Answer Notes Patient is a nonsmoker Section Notes: Nonsmoker > 10 yrs ago; 1-2 drinks QD Problems Problem Type SNOMED Code ICD Code Onset Dates Problem Status W/U Status Risk Notes Problem Colon cancer screening (525133507) Colon cancer screening (Z12.11) Active confirmed Problem Pre-procedure evaluation check (031994787) Encounter for other preprocedural examination (Z01.818) Active confirmed Vital Signs Blood pressure systolic 00 mm Hg 09/19/19 24 Blood pressure diastolic 00 mm Hg 024 Height 67.5 in 09/19/2023 Weight 129 lbs 09/19/2023 BMI 19.90 kg/m2 09/19/2023 Encounters Encounter Location Date Provider Diagnosis [place] [address] [place] [address] 09/19/2023 Prasanna Licea Colon cancer screeni ng Z12.11 and Encounter for other preprocedural examination Z01.818 Assessments Encounter Date Diagnosis (ICD Code) Assessment Notes Treatment Notes Treatment Clinical Notes Section Notes 09/19/2023 Colon cancer screening (ICD-10 - [...] to keep you advised of her progress. Plan Of Treatment Future Test Test Name Order Date COLONOSCOPY 09/19/2023 Next Appt Details Follow Up: prn, Reason: Progress Notes * KARIN ELLSWORTHADOB:1955 (68 yo F)Acc No.[id number]:09/19/2023 Progress Notes Patient:?ELVA ELLSWORTH Provider:?Prasanna Licea MD :1955???Age:68 Y???Sex:Female D ate:09/19/2023 Address:[address] [place] [address], [facility] Pcp:Olga Lidia Olivo MD Subjective: * Chief Complaints: * ???Patient presents today fo r colon screening * HPI: ???incontinence:? I saw Elva in the office today for evaluation of colorectal cancer screening. ?I last saw Elva in August of 2013, which she underwent a negative screening colonoscopy. She presently feels very well. She enjoys a good appetite, without any significant heartburn or dysphagia. Her bowel movements have been regular and without any signs of bleeding. She denies abdominal pain, jaundice, nor unintentional weight loss. She denies any known family history of colorectal cancer. * ROS:?General/Constitutional:?Change in appetite?denies.?Chills?denies.?Fatigue?denies.?Ophthalmologic:?Patient denies? Negative..?ENT:?Patient denies?Negative..?Respiratory:?Patient denies?No coughing/hemoptysis..?Cardiovascular:?Patient denies? No chest pain/orthopnea..?Gastrointestinal:?Comments?See HPI for details.?Genitourinary:?Patient denies? No dysuria/hematuria..?Musculoskeletal:?Patient denies? No specific arthralgias/myalgias..?Skin:?Patient denies?No rash/pruritus..?Neurologic:?Patient denies? No headaches/seizures..?Psychiatric:?Patient denies?Negative..? * Medical History:? 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 * Family History:?Father: dece ased.?Mother: , breast cancer late in life .?Maternal Grand Father: colon cancer--elderly at the time.? * Social History:?Tobacco Use:?Tobacco Use/Smoking?Patient is a?nonsmoker.?Drugs/Alcohol:?Alcohol Screen?Points: 4, Interpretation: Positive.?Miscellaneous:?Marital status: . 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 ???Nonsmoker >10 yrs ago; 1-2 drinks QD. * Medications:?TakingAlbuterol Sulfate HFA 108 (90 Base) MCG/ACT Aerosol Solution 1 puff as needed Inhalation every 4 hrsRaloxifene HCl 60 MG Tablet Oral Escitalopram Oxalate 10 MG Tablet Oral Calcium Vitamin D Taking Albuterol Sulfate HFA 108 (90 Base) MCG/ACT Aerosol Solution 1 puff as needed Inhalation every 4 hrsTaking Raloxifene HCl 60 MG Tablet Oral Taking Escitalopram Oxalate 10 MG Tablet Oral Taking Calcium Taking Vitamin D DiscontinuedLexapro 10 MG Tablet 1 tablet Orally Once a dayPROzac 40mg MoviPrep 100 GM Solution Reconstituted as directed Orally as directedMedication List reviewed and reconciled with the patientDiscontinued Lexapro 10 MG Tablet 1 tablet Orally Once a dayDiscontinued PROzac 40mg Discontinued MoviPrep 100 GM Solution Reconstituted as directed Orally as directedMedication List reviewed and reconciled with the patient * Allergies:?Dust MitesHorsesc atsyes[Allergies Verified] Objective: * Vitals:?Wt: 129 lbs, Ht: 67. 5 in, BMI:19.90 Index, BP: 00/00 mm Hg. Assessment: * Assessment: 1.?Colon cancer screening - Z12.11 (Primary)?2.?Encounter for other preprocedural examination - Z01.818? Overall, Elva appears wel l. Given her negative colonoscopy 10 years ago, [...] to keep you advised of her progress. Plan: * Treatment: * Procedure Codes:? * Preventive Medicine:? ??Counseling:?Care goal follow-up plan:?Above Normal BMI Follow-up?Giving encouragement to exercise,?BMI management provided?Yes.? ??Urinary Incontinence:?Urinary Incontinence?Assessment:?Absent,?Plan of care documented:?No, reason not specified.? * Follow Up:?prn * * Sign off status: Completed true * Provider:?Prasanna Licea MD Date:? 024 Generated for Ivania muir/Halima/eTransmitting on:?06/04/2024 11:03 AM EDT History and Physical Notes * HPI (History of Present Illness) Category Sub-Category Detail Notes Category Not es incontinence I saw Elva in the office today for evaluation of colorectal cancer screening. I last saw Elva in August of 2013, which she underwent a negative screening colonoscopy. She presently feels very well. She enjoys a good appetite, without any significant heartburn or dysphagia. Her bowel movements have been regular and without any signs of bleeding. She denies abdominal pain, jaundice, nor unintentional weight loss. She denies any known family history of colorectal cancer.
--- OUTSIDE RECORDS SUMMARY | 2024-06-04 11:03 | XMS_ITS | Patient Health Record ---
Author Organization [facility] [place] Address [address] [place] [address] Care Team Providers Care Radio Electronics Officer Name Role Phone Olga Lidia Olivo Primary Care Provider Srinivasa Dyer Unavailable [phone] Allergies Allergen (clinical drug ingredient) Drug/Non Drug Allergy documented on EMR Reaction Allergy Type Onset Date Status Seasonale runny frank Drug Allergy Active Cat dander Cat Dander Unknown Allergy Active Dust Mites Unknown Allergy Active Reason For Referral No Information Medications Medication SIG (Take, Route, Frequency, Duration) Notes Start Date End Date Status Glucosamine Active Vitamin B12 Active Basilia Allergy Acti ve Vitamin D3 Active Escitalopram [...] Problem Acquired hammer toe of right foot (9525085651839 105) Other hammer toe(s) (acquired), right foot (M20.41) Active confirmed Problem Acquired hammer toe of left foot (7649750425132 103) Other hammer toe(s) (acquired), left foot (M20.42) Active confirmed Plan Of Treatment Pending Test Test Name Order Date X ray : Foot, left 3V 06/30/2022 X ray : Foot, right 3V 06/30/2022 Insurance Providers Payer Name Payer Address Payer Phone Subscriber Number Group Number Insured Name Patient Relationship to Insured Coverage Start Date Coverage End Date [employer] Medicare [id number] [address] [address] [place] [address] [id number] Gillian Mccarty Self - patient is the insured Medical (General) History Medical History History ICD Code asthma breast cancer Depression Lumbar degenerative disc disease Plantar wart Back,Hip,and Knee pain covid-19 Lung disease Osteoporosis Measles Mumps Chicken pox Surgical History Surgery Date(Month/Year) foot surgery knee surgery right mastectomy 2009 total abdominal hysterectomy and bilater al salpingo-oophorectomy
--- OUTSIDE RECORDS SUMMARY | 2024-06-04 11:03 | XMS_ITS | Clinical Summary ---
Author Organization [employer] Address [address] [place] [address] Care Team Providers Care Segmental Paver Installer Name Role Phone Unavailable Primary Care Provider [...] patient's age to complete this topic Insurance [facility] MEDICARE REPLACEMENT
== END 2024-06-04 11:20 | disposition home or self-care (01) ==
LOC: HO.HMCH 09:53
PROVIDERS: PCP Internal Medicine; Visit Provider Internal Medicine
DX: Z00.00 Encounter for general adult medical examination without abnormal findings (principal); C50.911 Malignant neoplasm of unspecified site of right female breast; J44.9 Chronic obstructive pulmonary disease, unspecified; F32.9 Major depressive disorder, single episode, unspecified; M81.0 Age-related osteoporosis without current pathological fracture

== ENCOUNTER → 2024-06-04 09:52 | Outpatient (BNVA) | payer OTHER, SELFPAY | PROVIDERS: PCP Internal Medicine; Visit Provider Internal Medicine | DX: Z00.00 Encounter for general adult medical examination without abnormal findings (principal); C50.911 Malignant neoplasm of unspecified site of right female breast; F32.9 Major depressive disorder, single episode, unspecified; M81.0 Age-related osteoporosis without current pathological fracture; J44.9 Chronic obstructive pulmonary disease, unspecified; Z79.899 Other long term (current) drug therapy | CPT/HCPCS: 96127 ==

== ENCOUNTER 2024-09-03 09:06 | Outpatient (REF) | payer OTHER, SELFPAY ==
--- OUTSIDE RECORDS SUMMARY | 2024-09-03 09:43 | XMS_ITS | Patient Health Record ---
Author Organization [facility] [place] Address [address] [place] [address] Care Team Providers Care Dye Winch Operator Name Role Phone Olga Lidia Olivo Primary Care Provider Srinivasa Dyer Unavailable [phone] Allergies Allergen (clinical drug ingredient) Drug/Non Drug [...] Problem Acquired hammer toe of right foot (7451485294165 105) Other hammer toe(s) (acquired), right foot (M20.41) Active confirmed Problem Acquired hammer toe of left foot (6783433135369 103) Other hammer toe(s) (acquired), left foot (M20.42) Active confirmed Plan Of Treatment Pending Test Test Name Order Date X ray : Foot, left 3V 06/30/2022 X ray : Foot, right 3V 06/30/2022 Insurance Providers Payer Name Payer Address Payer Phone Subscriber Number Group Number Insured Name Patient Relationship to Insured Coverage Start Date Coverage End Date [employer] Medicare [id number] [address] [address] [place] [address] [id number] Gillian Mccarty Self - patient is the insured Medical (General) History Medical History History ICD Code asthma breast cancer Depression Lumbar degenerative disc disease Plantar wart Back,Hip,and Knee pain covid-19 Lung disease Osteoporosis Measles Mumps Chicken pox Surgical History Surgery Date(Month/Year) foot surgery knee surgery right mastectomy 2009 total abdominal hysterectomy and bilater al salpingo-oophorectomy
[2024-09-03 09:48] LABS: MANUAL DIFF FLAG NO
[2024-09-03 09:52] LABS: Basophils Percent Auto 0.8 % (0-2); Eosinophils Absolute Auto 0.1 X10*3/uL (0.0-0.4); Eosinophils Percent Auto 2.7 % (0-4); Hematocrit 40.6 % (37.0-47.0); Hemoglobin 13.6 g/dl (12.0-16.0); Imm Gran Abs Auto 0.01 X10*3/uL (0.00-0.03); Imm Gran Pct Auto 0.2 % (0.0-0.4); Lymphocytes Absolute Auto 1.6 X10*3/uL (1.2-4.9); Lymphocytes Percent Auto 30.2 % (20-40); Mean Corpuscular HGB Conc 33.5 g/dl (31.0-35.0); Mean Corpuscular Hemoglobin 32.8 pg (27.0-33.0); Mean Corpuscular Volume 97.8 fL (80.0-98.0); Mean Platelet Volume 10.6 fL (9.4-12.3); Monocytes Absolute Auto 0.3 X10*3/uL (0.1-1.2); Monocytes Percent Auto 6.3 % (2-11); Neutrophils Absolute Auto 3.1 x10*3/uL (2.0-8.3); Neutrophils Percent Auto 59.8 % (45-73); Platelet Count 282 X10*3/uL (160-400); Red Blood Count 4.15 X10*6/uL (4.20-5.50); Red Cell Distribution Width 12.1 % (11.0-16.0); White Blood Count 5.2 X10*3/uL (4.8-10.8)
[2024-09-03 10:09] LABS: Alanine Aminotransferase 22 U/L (0-31); Albumin Level 4.5 g/dL (3.5-5.0); Alkaline Phosphatase 65 U/L (39-117); Anion Gap 9 (12-20); Aspartate Amino Transferase 24 U/L (5-31); Bilirubin Total 0.8 mg/dL (0.0-1.0); Blood Urea Nitrogen 23 mg/dL (9-16); Calcium 9.5 mg/dL (8.4-10.2); Carbon Dioxide 29 mmol/L (22-29); Chloride 108 mmol/L (96-108); Cholesterol 212 mg/dL (<200); Estimated Glomerular Filt Rate > 60; Glucose Random 94 mg/dL (60-115); HDL Cholesterol 86 mg/dL (>40); LDL Cholesterol Calculated 115 mg/dL (<100); Potassium 4.2 mmol/L (3.3-5.1); Sodium 142 mmol/L (135-145); Total Protein 6.7 g/dL (6.5-8.0); Triglycerides 55 mg/dL (<150)
[2024-09-03 10:27] LABS: Free T4 (Free Thyroxine) 0.94 ng/dL (0.71-1.85); Thyroid Stimulating Hormone 0.69 uIU/mL (0.32-4.0); Vitamin D 25-OH Total 78.6 ng/mL (>30)
[2024-09-03 10:39] LABS: Folate 11.3 ng/mL (> or = 4.0); Vitamin B12 491 pg/mL (200-900)
== END 2024-09-03 09:07 | disposition home or self-care (01) ==
LOC: HO.10HDL 09:06
PROVIDERS: Visit Provider Internal Medicine
DX: M81.0 Age-related osteoporosis without current pathological fracture (principal); E78.00 Pure hypercholesterolemia, unspecified
CPT/HCPCS: 36415; 80053; 80061; 82306; 82607; 82746; 84439; 84443; 85025

== ENCOUNTER 2024-09-03 09:48 | Outpatient (REF) | payer OTHER, SELFPAY ==
--- NOTE | ~2024-09-03 | MM_ITS ---
EXAMINATION: BONE DENSITOMETRY CLINICAL INDICATION: Age-related osteoporosis. COMPARISON: This is the patient's baseline examination. TECHNIQUE: Using a [employer] dual-energy x-ray absorptiometry was performed of the lumbar spine. The images are of good technical quality. Summary results are attached. FINDINGS: AP SPINE L1-L4: BMD 0.963 g/cm2, Z-score 0.1, T-score -1.8, . LEFT FEMUR, NECK: BMD 0.655 g/cm2, Z-score -1.2, T-score -2.8, . IDENTIFIED RISK FACTORS: Secondary osteoporosis. Early menopause. Bilateral oophorectomy and hysterectomy. HISTORY OF FRACTURE: None listed. MEDICATIONS: Calcium supplements. Vitamin D. MM/XR DEXA axial skeleton IMPRESSION: 1. DIAGNOSIS: Osteoporosis based on the lowest T-score value of -2.8 in the left femur applying World Health Organization criteria. 2. 10-YEAR FRACTURE RISK PREDICTION, FRAX: The fracture risk is high based on a T score of -2.8 in left femur. The T score -2.8 is unchanged to previous exam 06/27/2022. 3. Treatment NOF guidelines recommend consideration for treatment in postmenopausal women and men age 50 and older presenting with the following: -A hip or vertebral (clinical or morphometric) fracture. -T-score less than or equal to -2.5 at the femoral neck or spine after appropriate evaluation to exclude secondary causes. -bone mass at the hip or spine and a 10-year fracture probability by FRAX of greater than or equal to 3% for hip fracture or greater than or equal to 20% for major osteoporotic fracture based on the [place] adapted WHO algorithm. 4. all treatment decisions require clinical judgment and consideration of individual patient risk factors including patient preferences comorbidities, previous drug use, risk factors not captured the fact spondylosis and possible under overestimation of fracture risk at fractures. Additional medical evaluation for secondary causes of lobe: Mineral density may be appropriate FUTURE SCAN RECOMMENDATION: People with diagnosed cases of osteoporosis or at high risk for fracture should have regular bone mineral density tests. For patients eligible for Medicare, routine testing is allowed once every 2 years. The testing frequency can be increased to one year for patients who have rapidly progressing disease, those who are receiving or discontinuing medical therapy to restore bone mass, or have additional risk factors. Electronically signed by: Eduard Hicks MD 09/03/2024 03:34 PM EDT RP
== END 2024-09-03 09:49 | disposition home or self-care (01) ==
LOC: HO.MAMMO 09:48
PROVIDERS: PCP Internal Medicine; Visit Provider Internal Medicine
DX: M81.0 Age-related osteoporosis without current pathological fracture (principal)
CPT/HCPCS: 77080

== ENCOUNTER → 2024-09-03 10:30 | Outpatient (BNV) | payer OTHER, SELFPAY | PROVIDERS: PCP Internal Medicine; Visit Provider Radiology Diagnostic Radiology | DX: E28.39 Other primary ovarian failure (principal) | CPT/HCPCS: 77080 ==

== ENCOUNTER 2024-09-09 10:45 | Outpatient (AMB) | payer OTHER, SELFPAY ==
[2024-09-09 10:54] VITALS: BP 124/62; PULSE 69; TEMP 36.2; O2SAT 96; BMI 19.4
--- NOTE | 2024-09-09 10:54 | MHC.PC.OV ---
Vital Signs 09/09/24 10:54 Height 5 ft 7.5 in Weight 126 lb BMI 19.4 BP 124/62 Blood Pressure Location Lt brachial Position Sitting Pulse 69 Pulse Source Pulse Oximeter Temp 97.1 F Temp Source Temporal Artery Scan Pulse Oximetry (%) 96 Oxygen Delivery Method Room Air Intake Visit Reasons: COPD, depression Allergies No Known Allergies Allergy (Verified 09/09/24 10:57) Medication List - Last Reconciled 09/09/24 by Olga Lidia Olivo MD albuterol sulfate 90 mcg/actuation 2 puffs PO QID PRN calcium carbonate (Calcium 600) 600 mg PO DAILY cholecalciferol (vitamin D3) 50 mcg PO DAILY escitalopram oxalate (Lexapro) 10 mg PO DAILY glucosamine HCl 500 mg PO DAILY raloxifene 60 mg PO DAILY Tobacco use date assessed: 06/04/24 Fall risk assessment: No Falls in past year Last assessed Fall Risk: 09/09/24 Dental Screening Dental Screen Date: 09/09/24 Did you have a dental visit in the last 12 months?: Yes Did you have a dental problem in the last 6 months where you did not have access to dental care?: No Was dental information given to patient?: Patient has dentist [facility] Medical History History of Mohs micrographic surgery for skin cancer Arthritis History of right breast cancer Swelling of right knee joint Asthma Lumbar degenerative disc disease Plantar wart Breast cancer Depression Surgical History H/O colonoscopy History of right mastectomy History of knee surgery History of total abdominal hysterectomy and bilateral salpingo-oophorectomy History of foot surgery Family History Father Dementia Spinal stenosis Mother Breast cancer COPD (chronic obstructive pulmonary disease) Brother Depression Substance abuse Sister Depression Neuropathy Other Arthritis Mental illness in member of household Substance abuse in family Social History Housing: Apartment Are you a primary rn managed care to a significant other at home: No Alcohol intake: current Alcohol intake frequency: 0-2 drinks per day Alcohol type: hard liquor Comment: QD 2-3 drinks Patient Tobacco Use Status: Never used Tobacco Tobacco use type: Cigarette Years Smoked: 1997 quit e-Cigarette/Vaping Use: Never Used Second Hand Smoke Exposure: No service: No Current occupational status: retired Cognitive needs: No Hearing needs: No Vision needs: Yes Questionnaire PHQ-9 Over the last 2 weeks, how often have you been bothered by any of the following problems? 1. Little interest or pleasure in doing things: not at all 2. Feeling down, depressed, or hopeless: several days 3. Trouble falling or staying asleep, or sleeping too much: not at all 4. Feeling tired or having little energy: not at all 5. Poor appetite or overeating: not at all 6. Feeling bad about yourself - or that you are a failure or have let yourself or your family down: not at all 7. Trouble concentrating on things, such as reading the newspaper or watching television: not at all 8. Moving or speaking so slowly that other people could have noticed. Or the opposite - being so fidgety or restless that you have been moving around a lot more than usual: not at all 9. Thoughts that you would be better off or of hurting yourself in some way: not at all Total score: 1 Depression Screening Interpretation: Negative Depression Screening Done: Yes 62099 - PHQ-9 Billing: Yes Source: Developed by Drs. Prasanna Christine, Janina Esquivel, Curtis Wilkinson and colleagues, with an educational jayjay from [employer]. Thrive Questionnaire Date Thrive assessed: 05/28/24 I am a: Patient What is your living situation today?: I have a steady place to live Within the past 12 months, did the food you bought not last and you didn't have the money to get more?: Never true Within the past 12 months, did you worry whether your food would run out before you got money to buy more?: Never true Do you have trouble paying for medicines?: No Do you have trouble getting transportation to medical appointments?: No Do you have trouble paying your heating and electricity bill?: No Do you have trouble taking care of your child, family member or friend?: No Do you have trouble with day-to-day activities such as bathing, preparing meals, shopping, managing finances, etc.?: No Are you currently unemployed and looking for a job?: No Are you interested in more education?: No Please select the resources that you would like help with: None Currently or been in a relationship where the following occur: No concerns reported THRIVE Score: 0 AUDIT C Alcohol Use Questionnaire (AUDIT-C) 1. How often do you have a drink containing alcohol?: 4 or more times a week 2. How many drinks containing alcohol do you have on a typical day when you are drinking?: 1 or 2 3. How often do you have six or more drinks on one occasion?: Never Total Score: 4 KAREN-7 AMB Questionnaire KAREN-7 Date KAREN - 7 assessed: 09/09/24 Feeling nervous, anxious, or on edge: 1 = Several days Not being able to stop or control worryin = Nearly every day Worrying too much about different things: 3 = Nearly every day Trouble relaxin = Several days Being so restless that it is hard to sit still: 0 = Not at all Becoming easily annoyed or irritable: 1 = Several days Feeling afraid as if something awful might happen: 0 = Not at all Total KAREN-7 score (0-4 normal; 5-9 mild; 10-14 moderate; 15-21 severe): 9 Source: Developed by Drs. Prasanna Christine, Janina Esquivel, Curtis Wilkinson and colleagues, with an educational jayjay from [employer]. KAREN-7 Assessment Billing KAREN-7 Assessment Tool: KAREN-7 Assessment 93931 Physical exam (Primary Care) Vital Signs: Last Vital Signs Temp 97.1 F 09/09/24 10:54 Pulse 69 09/09/24 10:54 BP 124/62 09/09/24 10:54 Pulse Ox 96 09/09/24 10:54 Oxygen Delivery Method Room Air 09/09/24 10:54 BMI result Body Mass Index 19.4 Tobacco/Smoking Status: Tobacco use Status Tobacco use date assessed 06/04/24 09/09/24 10:57 Patient Tobacco Use Status Never used Tobacco 09/09/24 10:57 Tobacco use type Cigarette 09/09/24 10:57 e-Cigarette/Vaping Use Never Used 09/09/24 10:57 PHQ-9: PHQ-9 Score PHQ-9: Total score 1 09/09/24 11:18 Depression Screening Interpretation: Negative Thrive Assessment: Date of Thrive Assessment Date Thrive assessed 05/28/24 09/09/24 10:57 Currently or been in a relationship where the following occur: No concerns reported Const General: alert; No acute distress Eyes Conjunctivae: conjunctivae normal Resp Auscultation: clear to auscultation bilaterally Cardio Rate: regular rate Rhythm: regular rhythm GI Inspection: Yes normal to inspection Extrem General: Yes normal to inspection and No edema Coding Level of Care Code Est Pt Level 4 (51584) Complex EM visit Add On G2211 Diagnoses COPD (chronic obstructive pulmonary disease) J44.9 Malignant neoplasm of right female breast, unspecified estrogen receptor status, unspecified site of breast C50.911 Breast location: unspecified site of breast Estrogen receptor status: unspecified Laterality: right Patient sex: female Age-related osteoporosis without current pathological fracture M81.0 Osteoporosis type: age-related Presence of current pathological fracture: without current pathological fracture Depression F32.9 Stiffness of joint of lower leg M25.669 Additional Codes KAREN-7 Assessment Billing - KAREN-7 Assessment Tool: KAREN-7 Assessment 24612 ([id number]) PHQ-9 - 47462 - PHQ-9 Billing: Yes ([id number]) Assessment & Plan Assessment & Plan (1) COPD (chronic obstructive pulmonary disease): Code(s): J44.9 - Chronic obstructive pulmonary disease, unspecified Category: Medical Plan: Patient on albuterol inhaler only (2) Breast cancer: Comment: Right mastectomy 2007 [facility] February 2022 mammogram Code(s): C50.919 - Malignant neoplasm of unspecified site of unspecified female breast Category: Medical Qualifiers: Breast location: unspecified site of breast Estrogen receptor status: unspecified Laterality: right Patient sex: female Qualified Code(s): C50.911 - Malignant neoplasm of unspecified site of right female breast Plan: patient up-to-date with mammogram (3) Osteoporosis: Comment: May 2020, June 2022, 08/2024 Code(s): M81.0 - Age-related osteoporosis without current pathological fracture Category: Medical Qualifiers: Osteoporosis type: age-related Presence of current pathological fracture: without current pathological fracture Qualified Code(s): M81.0 - Age-related osteoporosis without current pathological fracture Plan: Discussion about bone density and treatment. Calcium and vitamin-D basic keep active (4) Depression: Comment: Dr. Bhavna chavira Code(s): F32.9 - Major depressive disorder, single episode, unspecified Category: Medical Plan: Continue with counseling and therapy (5) Stiffness of joint of lower leg: Code(s): M25.669 - Stiffness of unspecified knee, not elsewhere classified Category: Medical Plan History of Present Illness The patient is a 69-year-old female presenting for a follow-up visit. She has a history of asthma, managed with an albuterol inhaler, which she uses more frequently due to weather changes, approximately once or twice a week. The patient was diagnosed with breast cancer in 2007, and she is currently on raloxifene, which also aids in bone health. She has Chronic Obstructive Pulmonary Disease (COPD) and osteoporosis, with the last bone density test conducted in August 2024 confirming weak bones. The patient is advised to take calcium and vitamin D supplements and consider medications like alendronate, but she is currently on raloxifene, which is beneficial for her condition. Her blood work from September 03 showed normal results, including blood count, electrolytes, renal function, blood sugar, liver function, cholesterol, B12, and vitamin D levels. The patient experiences stiffness in her legs, particularly after sitting, which affects her mobility. She has a history of arthritis in her lower back and has undergone knee and spine imaging, revealing spondylosis without significant inflammation. Physical therapy was attempted but did not provide relief, and she has seen a banking specialist who ruled out rheumatoid arthritis. Health Maintenance - Colon cancer screening up to date as of January 2024 - Mammogram up to date - Bone density test conducted in August 2024 Social History Review of Systems - Respiratory: Reports increased use of albuterol inhaler due to weather changes. Denies cough or wheezing. - Musculoskeletal: Reports stiffness in legs after sitting, affecting mobility. Denies numbness or tingling. Physical Exam Results - Labs: Normal blood count, electrolytes, renal function, blood sugar, liver function, cholesterol, B12, and vitamin D levels as of September 03. - Imaging: Bone density test in August 2024 confirmed osteoporosis. - Imaging: Knee and spine imaging revealed spondylosis without significant inflammation. Plan The patient will continue using her albuterol inhaler as needed, particularly during weather changes that exacerbate her asthma symptoms. For osteoporosis, the patient is advised to maintain calcium and vitamin D supplementation and consider alendronate if needed, although she is currently on raloxifene, which supports bone health. Regarding her musculoskeletal issues, the patient is experiencing stiffness in her legs, particularly after sitting, which affects her mobility. She has been advised to continue with physical therapy and consider anti-inflammatory medication to manage symptoms. The patient will have hip x-rays to further evaluate the cause of her stiffness and pain. Patient was informed and verbally consented to the use of an ambient scribe for clinic note documentation during this visit. Discussion Notes During the visit, we discussed the management of the patient's osteoporosis, including the benefits and risks of medications such as alendronate and the importance of calcium and vitamin D supplementation. We also reviewed her asthma management, ensuring she has adequate inhaler refills and understands the importance of using it as needed. For her musculoskeletal symptoms, we discussed the potential benefits of physical therapy and anti-inflammatory medications, and I recommended hip x-rays to further investigate her symptoms. Patient Instructions - Continue using albuterol inhaler as needed, especially during weather changes. - Maintain calcium and vitamin D supplementation for bone health. - Consider starting alendronate after dental clearance if needed. - Follow up with hip x-rays to evaluate leg stiffness. - Continue physical therapy and consider anti-inflammatory medication for stiffness. Orders: Orders XR hip BI w PEL1V Today M25.669 - Stiffness of unspecified knee, not elsewhere classified Medications: New meloxicam 15 mg PO DAILY 30 tabs 1RF M25.669 - Stiffness of unspecified knee, not elsewhere classified Refilled raloxifene 60 mg PO DAILY 90 tabs 3RF M81.0 - Age-related osteoporosis without current pathological fracture albuterol sulfate 90 mcg/actuation 2 puffs PO QID PRN 8.5 grams 1RF for wheezing J45.20 - Mild intermittent asthma, uncomplicated
--- OUTSIDE RECORDS SUMMARY | 2024-09-09 12:05 | XMS_ITS | Patient Health Record ---
Author Organization [facility] [place] Address [address] [place] [address] Care Team Providers Care Repair Table Operator Name Role Phone Olga Lidia Olivo Primary Care Provider Srinivasa Dyer Unavailable [phone] Allergies Allergen (clinical drug ingredient) Drug/Non Drug [...] Problem Acquired hammer toe of right foot ([id number] 105) Other hammer toe(s) (acquired), right foot (M20.41) Active confirmed Problem Acquired hammer toe of left foot ([id number] 103) Other hammer toe(s) (acquired), left foot (M20.42) Active confirmed Plan Of Treatment Pending Test Test Name Order Date X ray : Foot, left 3V 06/30/2022 X ray : Foot, right 3V 06/30/2022 Insurance Providers Payer Name Payer Address Payer Phone Subscriber Number Group Number Insured Name Patient Relationship to Insured Coverage Start Date Coverage End Date [employer] Medicare [id number] [address] [address] [place] [address] [id number] Gillian Mccarty Self - patient is the insured Medical (General) History Medical History History ICD Code asthma breast cancer Depression Lumbar degenerative disc disease Plantar wart Back,Hip,and Knee pain covid-19 Lung disease Osteoporosis Measles Mumps Chicken pox Surgical History Surgery Date(Month/Year) foot surgery knee surgery right mastectomy 2009 total abdominal hysterectomy and bilater al salpingo-oophorectomy
== END 2024-09-09 11:35 | disposition home or self-care (01) ==
LOC: HO.HMCH 10:46
PROVIDERS: PCP Internal Medicine; Visit Provider Internal Medicine
DX: J44.9 Chronic obstructive pulmonary disease, unspecified (principal); C50.911 Malignant neoplasm of unspecified site of right female breast; M81.0 Age-related osteoporosis without current pathological fracture; F32.9 Major depressive disorder, single episode, unspecified; M25.669 Stiffness of unspecified knee, not elsewhere classified

== ENCOUNTER → 2024-09-09 10:45 | Outpatient (BNVA) | payer OTHER, SELFPAY | PROVIDERS: PCP Internal Medicine; Visit Provider Internal Medicine | DX: J45.20 Mild intermittent asthma, uncomplicated (principal); J44.9 Chronic obstructive pulmonary disease, unspecified; F32.9 Major depressive disorder, single episode, unspecified; C50.911 Malignant neoplasm of unspecified site of right female breast; M81.0 Age-related osteoporosis without current pathological fracture; M25.669 Stiffness of unspecified knee, not elsewhere classified | CPT/HCPCS: 96127 ==

== ENCOUNTER 2024-11-07 10:34 | Emergency (ER) | payer OTHER, SELFPAY ==
[2024-11-07 10:37] VITALS: BP 160/78; PULSE 66; RESP 16; TEMP 36.3; O2SAT 98; BMI 19.7
--- NOTE | 2024-11-07 11:00 | ED.GENADULT ---
HPI - General Adult General Chief complaint: Skin/Abscess/Foreign Body Stated complaint: quest shingle Time Seen by Provider: 11/07/24 10:50 Source: patient Mode of arrival: ambulatory Limitations: no limitations History of Present Illness ED Provider: Junior Curran HPI narrative: 69-year-old female history of COPD breast cancer in the past depression presents to the ED for right flank pain/abdominal pain with burning rash that she noticed since yesterday. patient states any lesions rash on face, fever, chills, hedache, [place], or vomiting. Related Data Home Medications ?Medication ?Instructions ?Recorded ?Confirmed cholecalciferol (vitamin D3) 50 50 mcg PO DAILY 05/13/20 09/09/24 mcg (2,000 unit) capsule escitalopram oxalate 10 mg tablet 10 mg PO DAILY 11/15/21 09/09/24 (Lexapro) calcium carbonate (Calcium 600) 600 mg PO DAILY 01/15/24 09/09/24 glucosamine HCl 500 mg tablet 500 mg PO DAILY 06/04/24 09/09/24 Previous Rx's ?Medication ?Instructions ?Recorded meloxicam 15 mg tablet 15 mg PO DAILY #30 tabs 09/09/24 raloxifene 60 mg tablet 60 mg PO DAILY #90 tabs 09/09/24 albuterol sulfate 90 mcg/actuation 2 puff PO QID PRN for wheezing 11/06/24 aerosol inhaler #8.5 grams naproxen 500 mg tablet 500 mg PO BID PRN pain #14 tabs 11/07/24 valacyclovir 1 gram tablet 1,000 mg PO TID 10 days #30 tabs 11/07/24 Allergies Allergy/AdvReac Type Severity Reaction Status Date / Time No Known Allergies Allergy Verified 11/07/24 10:37 Review of Systems Review of Systems: Right flank burning rash Yes all other systems are reviewed and are negative PMFSH Past Medical History Medical History History of Mohs micrographic surgery for skin cancer Arthritis History of right breast cancer Swelling of right knee joint Asthma Lumbar degenerative disc disease Plantar wart Breast cancer Depression Surgical History H/O colonoscopy History of right mastectomy History of knee surgery History of total abdominal hysterectomy and bilateral salpingo-oophorectomy History of foot surgery Family History Family History Father Dementia Spinal stenosis Mother Breast cancer COPD (chronic obstructive pulmonary disease) Brother Depression Substance abuse Sister Depression Neuropathy Other Arthritis Mental illness in member of household Substance abuse in family Social History Social History Housing: Apartment Are you a primary critical care technician to a significant other at home: No Alcohol intake: current Alcohol intake frequency: 0-2 drinks per day Alcohol type: hard liquor Comment: QD 2-3 drinks Patient Tobacco Use Status: Never used Tobacco Tobacco use type: Cigarette Years Smoked: 1997 quit e-Cigarette/Vaping Use: Never Used Second Hand Smoke Exposure: No Advance Directives: No Advance Directives Information Provided: Yes Do you have a plan to hurt others: No Plan service: No Current occupational status: retired Cognitive needs: No Hearing needs: No Vision needs: Yes Physical Exam ED Vital Signs: Vital Signs - 24 hr 11/07/24 10:37 11/07/24 11:28 Temperature 97.4 F 97.4 F Pulse Rate 66 66 Respiratory Rate 16 16 Blood Pressure 160/78 H 160/78 H Pulse Oximetry 98 98 Oxygen Delivery Method Room Air Room Air BMI result Body Mass Index 19.7 Const General: cooperative, healthy appearing, comfortable, no acute distress, well developed, alert, awake and Physically active Orientation/consciousness: patient oriented x3 HENPA Head: Yes normal to inspection, Yes No palpable skull fracture present, Yes normocephalic and Yes atraumatic Eyes General: appearance normal, both eyes and all related structures Neck Neck: Yes normal visual inspection, Yes full ROM, Yes no lymphadenopathy, Yes no meningeal signs, Yes trachea midline, Yes supple, No anterior neck swelling and No tender Chest Chest palpation & inspection: normal inspection of the chest and normal palpation of entire chest wall Resp Effort & Inspection: normal respiratory effort and able to speak in complete sentences Cardio Jugular venous distension: no JVD Heart sounds: S1 normal heart sound present and S2 normal heart sound present GI Other: General: Yes no CVA tenderness Back/Spine/Pelvis Back: no CVA tenderness Skin General skin exam: no rashes or lesions noted, elasticity normal and turgor normal Neuro General: patient oriented x3, gait normal, tone normal, moves all extremities, Normal light touch and pain sensation, no meningeal signs, no focal motor deficits, CN's II-XI intact bilaterally and normal sensation to monofilament Extrem General: Yes normal to inspection, Yes full ROM and Yes capillary refill normal Psych Appearance: grossly normal, well kempt and not disheveled Medical Decision Making Medical Decision Making MDM Narrative: 69-year-old female history of COPD, osteoporosis depression breast cancer presents to ED for itchy burning rash on right flank right abdomen. Exam positive for signs of shingles. Negative for lesions in face to indicate any herpes in the eye. Negative for lesions in the ear. Patient will be discharged with antiviral pain medication. Patient informed to follow up with primary care provider. Patient explained worrisome signs and informed to return to the ED immediately. Differential Diagnosis Differential Diagnoses: The differential diagnosis associated with the presentation includes (Shingles, allergic reaction) Admission/Observation Consideration of admission/observation: Escalation of care including admission/observation considered Independent Historian Clinical information obtained from an independent historian. History obtained from or confirmed by: Other (patient) Prescription Management I considered prescription management with: Other (antiviral) Discharge Plan Discharge Clinical Impression: Shingles Patient Disposition: Home, Self-Care Instructions: Shingles (ED) Additional Instructions: Recommend follow-up with your primary care provider. Return to the ED immediately for any worsening rash, rash on face/nose, eye pain, change in vision, rash or pain in ears, chest pain, shortness of breath, intractable fever, weakness, chills, or any other concerning symptoms. Prescriptions: New valacyclovir 1 gram tablet 1,000 mg PO TID 10 Days Qty: 30 0RF naproxen 500 mg tablet 500 mg PO BID PRN (Reason: pain) Qty: 14 0RF No Action albuterol sulfate 90 mcg/actuation HFA aerosol inhaler 2 puff PO QID PRN (Reason: for wheezing) Qty: 8.5 1RF calcium carbonate [Calcium 600] 600 mg calcium (1,500 mg) Tablet 600 mg PO DAILY cholecalciferol (vitamin D3) 50 mcg (2,000 unit) capsule 50 mcg PO DAILY escitalopram oxalate [Lexapro] 10 mg tablet 10 mg PO DAILY glucosamine HCl 500 mg tablet 500 mg PO DAILY Rx Instructions: administer with a meal raloxifene 60 mg tablet 60 mg PO DAILY Qty: 90 3RF meloxicam 15 mg tablet 15 mg PO DAILY Qty: 30 1RF Referrals: Po,Olga Lidia Tripathi MD [Primary Care Provider, Internal Medicine] - 2 days Referral Note: Shingles Stand Alone Forms: Work/School Release Interventions: ED Discharge Assessment Last Done: 11/07/24 11:28 Discharge Date/Time: 11/07/24 11:28 Print Language: [place]
[2024-11-07 11:28] VITALS: BP 160/78; PULSE 66; RESP 16; TEMP 36.3; O2SAT 98
== END 2024-11-07 11:28 | disposition home or self-care (01) ==
LOC: HO.ED 11:27
PROVIDERS: Emergency Provider Emergency Medicine; PCP Internal Medicine
DX: B02.9 Zoster without complications (principal)
CPT/HCPCS: 99282; 99283

== ENCOUNTER 2024-11-11 15:20 | Outpatient (AMB) | payer OTHER, SELFPAY ==
--- OUTSIDE RECORDS SUMMARY | 2024-01-17 04:40 | XMS_ITS ---
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 Name Role Phone Olga Lidia Olivo MD Primary Care Provider Prasanna Strong [phone] REASON FOR VISIT screening Problems Problem Type SNOMED Code ICD Code Onset Dates Problem Status W/U Status Risk Notes Problem Diverticulosis o f large intestine without perforation or abscess without bleeding (K57.30) Active confirmed Encounters Encounter Location Date Provider Diagnosis [facility] [place] [address] [place] [id number] 01/17/2024 Prasanna Licea Colon cancer scree taylor [...] Notes * JOSE ELLSWORTHB:1955 (69 yo F)Acc No.[id number]:01/17/2024 COLON WITH MAC Patient: ELVA BURLESON Provider: Nicci Licea MD :1955 A ge:68 Y S ex:Female Date:01/17/2024 Address:[address] [place] [id number] Pcp:Olga Lidia Olivo MD Subjective: * Chief [...] 1 Generated for Ivania muir/Halima/Sulemanitting on: 0 11/11/2024 04:56 PM EDT
--- NOTE | 2024-11-11 15:33 | A.OFFPC_ITS ---
Vital Signs 11/11/24 15:34 Height 5 ft 7 in Weight 126 lb BMI 19.7 BP 144/60 H Blood Pressure Location Lt brachial Position Sitting Respiration 18 Pulse 76 Pulse Source Pulse Oximeter Temp 97.3 F Temp Source Temporal Artery Scan Pulse Oximetry (%) 96 Oxygen Delivery Method Room Air Intake Visit Reasons: rashes on her body Workers Compensation Specialist Required: No Accompanied by: Self / Same As Patient Allergies No Known Allergies Allergy (Verified 11/11/24 16:07) Medication List - Last Reconciled 11/11/24 by Allyssa Duran MD albuterol sulfate 90 mcg/actuation 2 puffs PO QID PRN calcium carbonate (Calcium 600) 600 mg PO DAILY cholecalciferol (vitamin D3) 50 mcg PO DAILY escitalopram oxalate (Lexapro) 10 mg PO DAILY glucosamine HCl 500 mg PO DAILY meloxicam 15 mg PO DAILY naproxen 500 mg PO BID PRN raloxifene 60 mg PO DAILY valacyclovir 1,000 mg PO TID 10 days Tobacco use date assessed: 11/11/24 Fall risk assessment: No Falls in past year Last assessed Fall Risk: 11/11/24 Dental Screening Dental Screen Date: 11/11/24 Did you have a dental visit in the last 12 months?: Yes Did you have a dental problem in the last 6 months where you did not have access to dental care?: No Was dental information given to patient?: Patient has dentist HPI HPI Comments History of Present Illness Details The patient is a 69-year-old female presenting for a hospital discharge follow-up. She was hospitalized on November 07 due to a burning rash on her leg in the flank area, which was diagnosed as Herpes Zoster (Shingles). She was started on paraciclovir, and the vesicles are now drying up, although she still experiences some pain and itchiness in the area. The patient has a history of Chronic Obstructive Pulmonary Disease (COPD) and breast cancer. She is currently on meloxicam and has been managing mild depression with acetylopram, which she reports is working well. She denies experiencing chest pain or dyspnea. [facility] Medical History (Updated 11/11/24 @ 20:17 by Allyssa Duran MD) History of Mohs micrographic surgery for skin cancer Arthritis History of right breast cancer Swelling of right knee joint Asthma Lumbar degenerative disc disease Plantar wart Breast cancer Depression Surgical History H/O colonoscopy History of right mastectomy History of knee surgery History of total abdominal hysterectomy and bilateral salpingo-oophorectomy History of foot surgery Family History Father Dementia Spinal stenosis Mother Breast cancer COPD (chronic obstructive pulmonary disease) Brother Depression Substance abuse Sister Depression Neuropathy Other Arthritis Mental illness in member of household Substance abuse in family Social History Housing: Apartment Are you a primary care partner to a significant other at home: No Alcohol intake: current Alcohol intake frequency: 0-2 drinks per day Alcohol type: hard liquor Comment: QD 2-3 drinks Patient Tobacco Use Status: Never used Tobacco Tobacco use type: Cigarette Years Smoked: 1997 quit e-Cigarette/Vaping Use: Never Used Second Hand Smoke Exposure: No service: No Current occupational status: retired Cognitive needs: No Hearing needs: No Vision needs: Yes Questionnaire PHQ-9 Over the last 2 weeks, how often have you been bothered by any of the following problems? 1. Little interest or pleasure in doing things: not at all 2. Feeling down, depressed, or hopeless: several days 3. Trouble falling or staying asleep, or sleeping too much: not at all 4. Feeling tired or having little energy: not at all 5. Poor appetite or overeating: not at all 6. Feeling bad about yourself - or that you are a failure or have let yourself or your family down: not at all 7. Trouble concentrating on things, such as reading the newspaper or watching television: not at all 8. Moving or speaking so slowly that other people could have noticed. Or the opposite - being so fidgety or restless that you have been moving around a lot more than usual: not at all 9. Thoughts that you would be better off or of hurting yourself in some way: not at all Total score: 1 Depression Screening Interpretation: Negative Depression Screening Done: Yes 32666 - PHQ-9 Billing: Yes Source: Developed by Drs. Prasanna Christine, Janina EsquivelCurtis and colleagues, with an educational jayjay from [employer]. Thrive Questionnaire Date Thrive assessed: 11/11/24 I am a: Patient What is your living situation today?: I have a steady place to live Within the past 12 months, did the food you bought not last and you didn't have the money to get more?: Never true Within the past 12 months, did you worry whether your food would run out before you got money to buy more?: Never true Do you have trouble paying for medicines?: No Do you have trouble getting transportation to medical appointments?: No Do you have trouble paying your heating and electricity bill?: No Do you have trouble taking care of your child, family member or friend?: No Do you have trouble with day-to-day activities such as bathing, preparing meals, shopping, managing finances, etc.?: No Are you currently unemployed and looking for a job?: No Are you interested in more education?: No Please select the resources that you would like help with: None Currently or been in a relationship where the following occur: No concerns reported THRIVE Score: 0 AUDIT C Alcohol Use Questionnaire (AUDIT-C) 1. How often do you have a drink containing alcohol?: 4 or more times a week 2. How many drinks containing alcohol do you have on a typical day when you are drinking?: 1 or 2 3. How often do you have six or more drinks on one occasion?: Never Total Score: 4 KAREN-7 AMB Questionnaire KAREN-7 Date KAREN - 7 assessed: 11/11/24 Feeling nervous, anxious, or on edge: 1 = Several days Not being able to stop or control worryin = Nearly every day Worrying too much about different things: 3 = Nearly every day Trouble relaxin = Several days Being so restless that it is hard to sit still: 0 = Not at all Becoming easily annoyed or irritable: 1 = Several days Feeling afraid as if something awful might happen: 0 = Not at all Total KAREN-7 score (0-4 normal; 5-9 mild; 10-14 moderate; 15-21 severe): 9 Source: Developed by Drs. Prasanna Christine, Curtis Huynh and colleagues, with an educational jayjay from [employer]. KAREN-7 Assessment Billing KAREN-7 Assessment Tool: KAREN-7 Assessment 83636 Review of Systems Const All systems reviewed & are unremarkable except as noted in HPI and below Card Denies chest pain at rest, Denies chest pain with activity, Denies edema, Denies irregular heart rhythm, Denies claudication, Denies dyspnea, Denies dyspnea on exertion, Denies orthopnea, Denies paroxysmal nocturnal dyspnea and Denies slow heart rate Resp Denies cough, Denies dyspnea and Denies dyspnea on exertion GI Denies abdominal pain, Denies change in bowel habits, Denies excessive flatus, Denies nausea and Denies vomiting Physical exam (Primary Care) Vital Signs: Last Vital Signs Temp 97.3 F 11/11/24 15:34 Pulse 76 11/11/24 15:34 Resp 18 11/11/24 15:34 BP 144/60 H 11/11/24 15:34 Pulse Ox 96 11/11/24 15:34 Oxygen Delivery Method Room Air 11/11/24 15:34 BMI result Body Mass Index 19.7 Tobacco/Smoking Status: Tobacco use Status Tobacco use date assessed 11/11/24 11/11/24 15:43 Patient Tobacco Use Status Never used Tobacco 11/11/24 15:43 Tobacco use type Cigarette 11/11/24 15:43 e-Cigarette/Vaping Use Never Used 11/11/24 15:43 PHQ-9: PHQ-9 Score PHQ-9: Total score 1 11/11/24 16:12 Depression Screening Interpretation: Negative Thrive Assessment: Date of Thrive Assessment Date Thrive assessed 11/11/24 11/11/24 15:43 Currently or been in a relationship where the following occur: No concerns reported Resp Effort & Inspection: normal respiratory effort Auscultation: clear to auscultation bilaterally Cardio Jugular venous distension: no JVD Rate: regular rate Rhythm: regular rhythm Heart sounds: S1 normal heart sound present and S2 normal heart sound present Extrem General: Yes full ROM Coding Level of Care Code Est Pt Level 4 (47751) Complex EM visit Add On G2211 Diagnoses Hospital discharge follow-up Z09 Herpes zoster B02.9 COPD (chronic obstructive pulmonary disease) J44.9 Malignant neoplasm of right female breast, unspecified estrogen receptor status, unspecified site of breast C50.911 Breast location: unspecified site of breast Estrogen receptor status: unspecified Patient sex: female Laterality: right Additional Codes KAREN-7 Assessment Billing - KAREN-7 Assessment Tool: KAREN-7 Assessment 67664 ([id number]) PHQ-9 - 78195 - PHQ-9 Billing: Yes ([id number]) Time Spent (min) 22 Assessment & Plan Assessment & Plan (1) Hospital discharge follow-up: Code(s): Z09 - Encounter for follow-up examination after completed treatment for conditions other than malignant neoplasm Category: Medical (2) Herpes zoster: Code(s): B02.9 - Zoster without complications Category: Medical (3) COPD (chronic obstructive pulmonary disease): Code(s): J44.9 - Chronic obstructive pulmonary disease, unspecified Category: Medical (4) Breast cancer: Comment: Right mastectomy 2007 [facility] February 2022 mammogram Code(s): C50.919 - Malignant neoplasm of unspecified site of unspecified female breast Category: Medical Qualifiers: Breast location: unspecified site of breast Estrogen receptor status: unspecified Patient sex: female Laterality: right Qualified Code(s): C50.911 - Malignant neoplasm of unspecified site of right female breast Plan Plan Patient was informed and verbally consented to the use of an ambient scribe for clinic note documentation during this visit. 1. Zoster without complications B02.9 The patient was treated with paraciclovir for Herpes Zoster, and the vesicles are now drying up. She continues to experience some pain and itchiness, which may require further management. 2. Chronic obstructive pulmonary disease, unspecified J44.9 HCC 111 The patient has a history of COPD, and she denies experiencing dyspnea or chest pain at this time. 3. Malignant neoplasm of unspecified site of unspecified female breast C50.919 HCC 12 The patient has a history of breast cancer and is currently on meloxicam. 4. Major depressive disorder, single episode, unspecified F32.9 The patient is managing mild depression with acetylopram, which she reports is effective.
[2024-11-11 15:34] VITALS: BP 144/60; PULSE 76; RESP 18; TEMP 36.3; O2SAT 96; BMI 19.7
--- OUTSIDE RECORDS SUMMARY | 2024-11-11 16:56 | XMS_ITS | Patient Health Record ---
Author Organization [facility] Address [address] [place] [address] Care Team Providers Care Weekend Anchor Name Role Phone Po Olga Lidia ARANA Primary Care Provider Prasanna Strong [phone] Allergies Allergen (clinical drug ingredient) Drug/Non Drug Allergy documented on EMR Reaction Allergy Type Onset Date Status Horses Unknown Allergy Active Dust Mites Unknown Allergy Active cats (uncoded) Unknown Allergy Activ e Results Component Value Reference Range Notes Pathology (Not yet reviewed by provider) Interpretation: Performing Lab:[facility], [address] [place] [id number] Notes/Report: Reason For Referral No Information Medications Medication [...] Status Risk Notes Problem Colon cancer screening (952895186) Colon cancer screening (Z12.11) Active confirmed Problem Pre-procedure evaluation check (865021027) Encounter for other preprocedural examination (Z01.818) Active confirmed Problem Diverticulosis o f large intestine without perforation or abscess without bleeding (K57.30) Active confirmed Encounters Encounter Location Date Provider Diagnosis [facility] [place] [facility] [address] [place] [id number] 01/17/2024 Prasanna Licea Colon cancer scree taylor [...] Insured Coverage Start Date Coverage End Date [facility] [address] [address] [place] [address] [phone] [id number] ELVA ELLSWORTH Self - patient is the insured Medical (General) History Medical History History ICD Code COPD Denies NC,DM,CVA,renal disease Depression History of right breast cancer Seasonal allergies Osteoporosis Arthritis Negative screening colonoscopy in 08/2013 Surgical History Surgery Date(Month/Year) Right mastecomy 2007--then received Tamo xifen for 5 years Knee surgery Foot surgery 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
--- OUTSIDE RECORDS SUMMARY | 2024-11-11 16:56 | XMS_ITS | Patient Health Record ---
Author Organization [facility] john paul [place] Address [address] [place] [address] Care Team Providers Care Engineer Station Mainline Name Role Phone Olga Lidia Olivo Primary Care Provider Srinivasa Dyer Unavailable [phone] Allergies Allergen (clinical drug ingredient) Drug/Non Drug [...] Problem Acquired hammer toe of right foot (3737878078322 105) Other hammer toe(s) (acquired), right foot (M20.41) Active confirmed Problem Acquired hammer toe of left foot (9413775601722 103) Other hammer toe(s) (acquired), left foot (M20.42) Active confirmed Plan Of Treatment Pending Test Test Name Order Date X ray : Foot, left 3V 06/30/2022 X ray : Foot, right 3V 06/30/2022 Insurance Providers Payer Name Payer Address Payer Phone Subscriber Number Group Number Insured Name Patient Relationship to Insured Coverage Start Date Coverage End Date [employer] Medicare [id number] [address] [address] [place] [address] [id number] Gillian Mccarty Self - patient is the insured Medical (General) History Medical History History ICD Code asthma breast cancer Depression Lumbar degenerative disc disease Plantar wart Back,Hip,and Knee pain covid-19 Lung disease Osteoporosis Measles Mumps Chicken pox Surgical History Surgery Date(Month/Year) foot surgery knee surgery right mastectomy 2009 total abdominal hysterectomy and bilater al salpingo-oophorectomy
--- OUTSIDE RECORDS SUMMARY | 2024-11-11 16:56 | XMS_ITS | Clinical Summary ---
Author Organization [employer] Address [address] [place] [address] Care Team Providers Care Calculating Machine Operator Name Role Phone Unavailable Primary Care Provider Unavailabl e Immunizations Immunization Administration Dates Next Due Moderna Covid-19 Vaccine [...] 5 season) 2023 05/13/2022 Influenza Vaccine (#1) 2024 RSV Patients and Pa tients Aged 60 [...] patient's age to complete this topic Meningococcal B Vaccine Aged Out No l onger eligible based on patient's age to complete this topic Meningococcal Vaccine Aged Out No acacia edyta eligible based on patient's age to complete this topic RSV under 20 months Aged Out No longe r eligible based on patient's age to complete this topic Rotavirus Vaccines Aged Out No longer eligible based on patient's age to complete this topic Insurance [facility] [place] [address]
== END 2024-11-11 16:16 | disposition home or self-care (01) ==
LOC: HO.HMCH 15:21
PROVIDERS: PCP Internal Medicine; Visit Provider Internal Medicine
DX: Z09 Encounter for follow-up examination after completed treatment for conditions other than malignant neoplasm (principal); B02.9 Zoster without complications; J44.9 Chronic obstructive pulmonary disease, unspecified; C50.911 Malignant neoplasm of unspecified site of right female breast

== ENCOUNTER → 2024-11-11 15:20 | Outpatient (BNVA) | payer OTHER, SELFPAY | PROVIDERS: PCP Internal Medicine; Visit Provider Internal Medicine | DX: B02.9 Zoster without complications (principal); J44.9 Chronic obstructive pulmonary disease, unspecified; C50.911 Malignant neoplasm of unspecified site of right female breast; F32.9 Major depressive disorder, single episode, unspecified; Z09 Encounter for follow-up examination after completed treatment for conditions other than malignant neoplasm | CPT/HCPCS: 96127 ==

== ENCOUNTER 2024-12-12 13:52 | Outpatient (REF) | payer MEDICARE, SELFPAY ==
--- OUTSIDE RECORDS SUMMARY | 2024-01-17 04:40 | XMS_ITS ---
Author Organization [facility] Address [address] [place] [address] Care Team Providers Care Oil Changer Name Role Phone Olga Lidia Olivo MD Primary Care Provider Prasanna Strong [phone] REASON FOR VISIT screening Problems Problem Type SNOMED Code ICD Code Onset Dates Problem Status W/U Status Risk Notes Problem Diverticular disease of colon (939713216) Diverticulosis of large intestine without perforation or abscess without bleeding (K57.30) Active confirmed Encounters Encounter Location Date Provider Diagnosis [facility] [place] [address] [place] [id number] 01/17/2024 Prasanna Licea Colon cancer scree taylor Z12.11 ; Colon polyps K63.5 ; Diverticulosis of large intestine without perforation or abscess without bleeding K57.30 and Other hemorrhoids K64.8 Assessments Encounter Date Diagnosis (ICD Code) Assessment Notes Treatment Notes Treatment Clinical Notes Section Notes 01/17/2024 Colon cancer screening (ICD-10 - Z12.11) 01/17/2024 Colon polyps (ICD-10 - K63.5) 01/17/2024 Diverticulosis of large intestine without perforation or abscess without bleeding (ICD-10 - K57.30) 01/17/2024 Other hemorrhoids (ICD-10 - K64.8) Plan Of Treatment No Information Progress Notes * JOSE ELLSWORTHB:1955 (69 yo F)Acc No.[id number]:01/17/2024 COLON WITH MAC Patient: H ALVINA, ELVA Provider: Nicci Licea MD :1955 A ge:68 Y S ex:Female Date:01/17/2024 Address:[address] [place] [address], [place] [id number] Pcp:Olga Lidia Olivo MD Subjective: * Chief Complaints: * 1 . Screening. * Medical History: Objective: * Vitals: Assessment: * Assessment: 1. C olon cancer screening - Z12.11 (Primary) 2 . C olon polyps - K63.5? 3. D iverticulosis of large intestine without perforation or abscess without bleeding - K57.30 4 . O ther hemorrhoids - K64.8 Plan: * Treatment: * Procedure Codes: 4 5385 LESION REMOVAL COLONOSCOPY, Modifiers: PT , 0529F INTRVL 3+YRS PTS CLNSCP DOCD, 0528F RCMND FLW-UP 10 YRS DOCD, Modifiers: 1P * * The named appointment provid er may or may not be the originator of this progress note, and it is not deemed complete until electronically signed by the appointment provider. Sign off status: Pending * Provider: Nicci Licea MD Date: 1 Generated for Ivania muir/Halima/Sulemanitting on: 0 12/12/2024 06:24 PM EDT
--- NOTE | ~2024-12-12 | XR_ITS ---
EXAMINATION: XR BILATERAL HIPS WITH AP PELVIS CLINICAL INFORMATION: M25.669 - Stiffness of unspecified knee, not elsewhere classified COMPARISON: October 29, 2019 left hip x-ray TECHNIQUE: AP and frog-leg lateral views of each hip and an AP view of the pelvis. FINDINGS: X-ray of the pelvis demonstrates calcifications centrally that are consistent with embolus. Minimal osteophytes are noted the margins of the lower SI joints bilaterally. Left hip: The joint space is congruent and preserved. Minute marginal osteophyte is noted the lateral femoral head and acetabular roof. Right hip: There is subtle axial joint space narrowing. No osteophytes are present. No other abnormalities are evident. XR/XR hip BI w PEL1V IMPRESSION: Minimal evidence of degenerative change in the SI and bilateral hip joints. Electronically signed by: Vince Alaniz MD 12/12/2024 02:43 PM EDT
--- OUTSIDE RECORDS SUMMARY | 2024-12-12 18:25 | XMS_ITS | Patient Health Record ---
Author Organization [facility] paul [place] Address [address] [facility] [facility] [facility] [place] [address] Care Team Providers Care Cloth Hand Name Role Phone Olga Lidia Olivo Primary Care Provider Srinivasa Dyer Unavailable [phone] Allergies Allergen (clinical drug ingredient) Drug/Non Drug [...] Problem Acquired hammer toe of right foot (4378322608095 105) Other hammer toe(s) (acquired), right foot (M20.41) Active confirmed Problem Acquired hammer toe of left foot (0079000800013 103) Other hammer toe(s) (acquired), left foot (M20.42) Active confirmed Plan Of Treatment Pending Test Test Name Order Date X ray : Foot, left 3V 06/30/2022 X ray : Foot, right 3V 06/30/2022 Insurance Providers Payer Name Payer Address Payer Phone Subscriber Number Group Number Insured Name Patient Relationship to Insured Coverage Start Date Coverage End Date [employer] Medicare [id number] [address] [address] [place] [address] [id number] Gillian Mccarty Self - patient is the insured Medical (General) History Medical History History ICD Code asthma breast cancer Depression Lumbar degenerative disc disease Plantar wart Back,Hip,and Knee pain covid-19 Lung disease Osteoporosis Measles Mumps Chicken pox Surgical History Surgery Date(Month/Year) foot surgery knee surgery right mastectomy 2009 total abdominal hysterectomy and bilater al salpingo-oophorectomy
--- OUTSIDE RECORDS SUMMARY | 2024-12-12 18:25 | XMS_ITS | Patient Health Record ---
Author Organization [facility] Address [address] [place] [address] Care Team Providers Care Blind Escort Name Role Phone Po Olga Lidia ARANA Primary Care Provider Prasanna Strong [phone] Allergies Allergen (clinical drug ingredient) Drug/Non Drug Allergy documented on EMR Reaction Allergy Type Onset Date Status Horses Unknown Allergy Active Dust Mites Unknown Allergy Active cats (uncoded) Unknown Allergy Activ e Results Component Value Reference Range Notes Pathology (Not yet reviewed by provider) Interpretation: Performing Lab:[facility], [address] [place] [phone] Notes/Report: Reason For Referral No Information Medications [...] Status Risk Notes Problem Colon cancer screening (790590297) Colon cancer screening (Z12.11) Active confirmed Problem Pre-procedure evaluation check (241082041) Encounter for other preprocedural examination (Z01.818) Active confirmed Problem Diverticular disease of colon (691248998) Diverticulosis of large intestine without perforation or abscess without bleeding (K57.30) Active confirmed Encounters Encounter Location Date Provider Diagnosis [facility] [place] [address] [place] [id number] 01/17/2024 Prasanna Licea Colon cancer scree taylor [...] Insured Coverage Start Date Coverage End Date [facility] [address] [address] [place] [address] [phone] [id number] ELVA ELLSWORTH Self - patient is the insured Medical (General) History Medical History History ICD Code COPD Denies ID,DM,CVA,renal disease Depression History of right breast cancer Seasonal allergies Osteoporosis Arthritis Negative screening colonoscopy in 08/2013 Surgical History Surgery Date(Month/Year) Right mastecomy 2007--then received Tamo xifen for 5 years Knee surgery Foot surgery 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
--- OUTSIDE RECORDS SUMMARY | 2024-12-12 18:25 | XMS_ITS | Clinical Summary ---
Author Organization [employer] Address [address] [place] [address] Care Team Providers Care Fuel Cell Binder Name Role Phone Unavailable Primary Care Provider [...] of 2) 2006 COVID-19 Vaccine (2 - 2024-2 6 season) 2024 05/13/2022 Influenza Vaccine (#1) 2024 RSV Patients [...] patient's age to complete this topic Insurance [facility] [place] [address]
== END 2024-12-12 13:53 | disposition home or self-care (01) ==
LOC: HO.XRAY 13:52
PROVIDERS: PCP Internal Medicine; Visit Provider Internal Medicine
DX: M25.661 Stiffness of right knee, not elsewhere classified (principal); M25.662 Stiffness of left knee, not elsewhere classified
CPT/HCPCS: 73521

== ENCOUNTER → 2024-12-12 13:58 | Outpatient (BNV) | payer OTHER, MEDICARE, SELFPAY | PROVIDERS: PCP Internal Medicine; Visit Provider Radiology Diagnostic Radiology | DX: M16.0 Bilateral primary osteoarthritis of hip (principal) | CPT/HCPCS: 73521 ==

== ENCOUNTER 2024-12-30 13:50 | Outpatient (AMB) | payer OTHER, SELFPAY ==
--- OUTSIDE RECORDS SUMMARY | 2024-12-30 13:53 | XMS_ITS | Clinical Summary ---
Author Organization [employer] Address [address] [facility] [address] [place] [address] Care Team Providers Care Rn Clinical Research Name Role Phone Unavailable Primary Care Provider [...] patient's age to complete this topic Insurance [facility] [place] [address]
[2024-12-30 14:10] VITALS: BP 142/78; PULSE 78; O2SAT 98; BMI 19.7
--- NOTE | 2024-12-30 14:10 | A.OFFPC_ITS ---
Vital Signs 12/30/24 14:10 Height 5 ft 7 in Weight 126 lb BMI 19.7 BP 142/78 H Blood Pressure Location Lt brachial Position Sitting Pulse 78 Pulse Source Pulse Oximeter Pulse Oximetry (%) 98 Oxygen Delivery Method Room Air Intake Visit Reasons: leg stiffness Allergies No Known Allergies Allergy (Verified 12/30/24 14:10) Tobacco use date assessed: 11/11/24 Fall risk assessment: No Falls in past year Last assessed Fall Risk: 12/30/24 Dental Screening Dental Screen Date: 11/11/24 [facility] Medical History History of Mohs micrographic surgery for skin cancer Arthritis History of right breast cancer Swelling of right knee joint Asthma Lumbar degenerative disc disease Plantar wart Breast cancer Depression Surgical History H/O colonoscopy History of right mastectomy History of knee surgery History of total abdominal hysterectomy and bilateral salpingo-oophorectomy History of foot surgery Family History Father Dementia Spinal stenosis Mother Breast cancer COPD (chronic obstructive pulmonary disease) Brother Depression Substance abuse Sister Depression Neuropathy Other Arthritis Mental illness in member of household Substance abuse in family Social History Housing: Apartment Are you a primary care transition manager to a significant other at home: No Alcohol intake: current Alcohol intake frequency: 0-2 drinks per day Alcohol type: hard liquor Comment: QD 2-3 drinks Patient Tobacco Use Status: Never used Tobacco Tobacco use type: Cigarette Years Smoked: 1997 quit e-Cigarette/Vaping Use: Never Used Second Hand Smoke Exposure: No service: No Current occupational status: retired Cognitive needs: No Hearing needs: No Vision needs: Yes Questionnaire Thrive Questionnaire Date Thrive assessed: 11/11/24 I am a: Patient What is your living situation today?: I have a steady place to live Within the past 12 months, did the food you bought not last and you didn't have the money to get more?: Never true Within the past 12 months, did you worry whether your food would run out before you got money to buy more?: Never true Do you have trouble paying for medicines?: No Do you have trouble getting transportation to medical appointments?: No Do you have trouble paying your heating and electricity bill?: No Do you have trouble taking care of your child, family member or friend?: No Do you have trouble with day-to-day activities such as bathing, preparing meals, shopping, managing finances, etc.?: No Are you currently unemployed and looking for a job?: No Are you interested in more education?: No Please select the resources that you would like help with: None Currently or been in a relationship where the following occur: No concerns reported THRIVE Score: 0 KAREN-7 AMB Questionnaire KAREN-7 Date KAREN - 7 assessed: 11/11/24 Source: Developed by Drs. Prasanna Christine, Janina Esquivel, Curtis Wilkinson and colleagues, with an educational jayjay from [employer]. Physical exam (Primary Care) Vital Signs: Last Vital Signs Pulse 78 12/30/24 14:10 BP 142/78 H 12/30/24 14:10 Pulse Ox 98 12/30/24 14:10 Oxygen Delivery Method Room Air 12/30/24 14:10 BMI result Body Mass Index 19.7 Tobacco/Smoking Status: Tobacco use Status Tobacco use date assessed 11/11/24 12/30/24 14:15 Patient Tobacco Use Status Never used Tobacco 12/30/24 14:15 Tobacco use type Cigarette 12/30/24 14:15 e-Cigarette/Vaping Use Never Used 12/30/24 14:15 Thrive Assessment: Date of Thrive Assessment Date Thrive assessed 11/11/24 12/30/24 14:15 Currently or been in a relationship where the following occur: No concerns reported Const General: alert; No acute distress Eyes Conjunctivae: conjunctivae normal Resp Auscultation: clear to auscultation bilaterally Cardio Rate: regular rate Rhythm: regular rhythm GI Inspection: Yes normal to inspection Extrem General: Yes normal to inspection and No edema Office Procedures Flu Questionnaire Does the patient have a severe egg allergy?: No Does the patient have severe life threatening allergies?: No Does the patient have a fever or illness today?: No Has the patient ever had Guillain-Prospect Syndrome?: No Has the patient ever had any past reaction to a flu shot?: No Immunizations Fluarix [id number] (PF) 45 mcg (15 mcg x 3)/0.5 mL IM syringe Performing Provider: Olga Lidia Olivo MD Performing Location: [facility] Administered by: Kirstin Donis CMA on 12/30/24 14:17 Dose Route Admin Location Dispensed Lot Number Expiration Date NDC Tobacco Classer 0.5 mL IM Left Deltoid 0.5 mL [id number] 09/16/25 [id number] MyDoc VIS Given Date VIS Provided VIS Publication Date 12/30/24 Single Vaccine 24 Eligibility Eligibility Date Funding Source Not [facility] Eligible 12/30/24 Private Coding Level of Care Code Est Pt Level 4 (84258) Complex EM visit Add On G2211 Diagnoses Malignant neoplasm of right female breast, unspecified estrogen receptor status, unspecified site of breast C50.911 Breast location: unspecified site of breast Estrogen receptor status: unspecified Laterality: right Patient sex: female COPD (chronic obstructive pulmonary disease) J44.9 Depression F32.9 Assessment & Plan Assessment & Plan (1) Breast cancer: Comment: Right mastectomy 2007 [facility] February 2022 mammogram Code(s): C50.919 - Malignant neoplasm of unspecified site of unspecified female breast Category: Medical Qualifiers: Breast location: unspecified site of breast Estrogen receptor status: unspecified Laterality: right Patient sex: female Qualified Code(s): C50.911 - Malignant neoplasm of unspecified site of right female breast Plan: Patient is reminded about mammogram (2) COPD (chronic obstructive pulmonary disease): Code(s): J44.9 - Chronic obstructive pulmonary disease, unspecified Category: Medical Plan: Continue with albuterol inhaler (3) Depression: Comment: Dr. Bhavna chavira Code(s): F32.9 - Major depressive disorder, single episode, unspecified Category: Medical Plan: Continue with Lexapro Plan History of Present Illness The patient is a 69-year-old female presenting for a follow-up visit. The patient has a history of breast cancer with a right mastectomy performed in 2007. She has been managing asthma and uses an albuterol inhaler as needed, particularly during allergy season. The patient has been diagnosed with depression and is currently on Lexapro. She also has osteoporosis, with the last bone density test conducted in August 2024. The patient has Chronic Obstructive Pulmonary Disease (COPD) and lumbar radiculopathy, which have been stable. She was treated for shingles in October 2024, with the pain resolving after four weeks. Hypertension was noted during the visit, with a blood pressure reading of 140/90 mmHg. The patient does not regularly monitor her blood pressure at home but plans to start doing so. The patient experiences arthritis, particularly in the hip and SI joints, with stiffness but no significant pain. She has been engaging in physical therapy exercises at home to manage stiffness. The patient reports allergies, which have worsened over the past year, and she uses albuterol during allergy season. Health Maintenance - Mammogram reminder for February - Colon cancer screening last done in 2023 - Bone density test up to date as of August 2024 - Flu shot recently administered - Shingles vaccination discussed for February Social History - Exercise: Engages in physical therapy exercises at home for stiffness management - Medication adherence: Takes Lexapro and uses albuterol inhaler as needed Review of Systems - Respiratory: Reports cough, uses albuterol inhaler during allergy season - Musculoskeletal: Reports stiffness in legs, denies significant pain - Cardiovascular: Denies regular blood pressure monitoring at home - Dermatological: Reports resolved shingles with residual red spots - Allergies: Reports worsening allergies over the past year Physical Exam - Cardiovascular: Blood pressure 140/90 mmHg Results - Labs: Normal blood count, electrolytes, renal function, blood sugar, liver function, and cholesterol as of August 2024 - Imaging: X-rays show arthritis in hip and SI joints Plan Patient was informed and verbally consented to the use of an ambient scribe for clinic note documentation during this visit. 1. Hypertension The patient was advised to monitor her blood pressure at home regularly, aiming for a target of 120/80 mmHg. If readings consistently exceed 140/90 mmHg, further evaluation and management will be considered. 2. Asthma The patient is to continue using the albuterol inhaler as needed, especially during allergy season. 3. Osteoporosis The patient's bone density is up to date, and she is encouraged to maintain her current management plan. 4. Shingles The patient was treated with antivirals, and the pain has resolved. A shingles vaccination is recommended in February. 5. Arthritis The patient is advised to continue physical therapy exercises to manage stiffness and maintain joint function. Discussion Notes During the visit, I discussed the importance of monitoring blood pressure at home and maintaining a target of 120/80 mmHg. We reviewed the use of the albuterol inhaler for asthma management, particularly during allergy season. I advised the patient to continue her current osteoporosis management and to consider a shingles vaccination in February. We also discussed the continuation of physical therapy exercises for arthritis management. The patient was reminded about her upcoming mammogram and the importance of regular screenings. Patient Instructions - Monitor blood pressure at home regularly and record the readings. - Use albuterol inhaler as needed, especially during allergy season. - Continue current osteoporosis management plan. - Schedule shingles vaccination for February. - Engage in physical therapy exercises to manage arthritis stiffness. - Attend mammogram appointment in February. Orders: Orders Influenza [id number] Immunization Today Z23 - Encounter for immunization
== END 2024-12-30 14:44 | disposition home or self-care (01) ==
LOC: HO.HMCH 13:51
PROVIDERS: PCP Internal Medicine; Visit Provider Internal Medicine
DX: C50.911 Malignant neoplasm of unspecified site of right female breast (principal); J44.9 Chronic obstructive pulmonary disease, unspecified; F32.9 Major depressive disorder, single episode, unspecified; Z23 Encounter for immunization

== ENCOUNTER → 2024-12-30 13:50 | Outpatient (BNVA) | payer OTHER, SELFPAY | PROVIDERS: PCP Internal Medicine; Visit Provider Internal Medicine | DX: J44.9 Chronic obstructive pulmonary disease, unspecified (principal); Z23 Encounter for immunization; F32.9 Major depressive disorder, single episode, unspecified; I10 Essential (primary) hypertension; M81.0 Age-related osteoporosis without current pathological fracture; B02.9 Zoster without complications; M19.90 Unspecified osteoarthritis, unspecified site; Z85.3 Personal history of malignant neoplasm of breast; Z79.899 Other long term (current) drug therapy; Z90.11 Acquired absence of right breast and nipple | CPT/HCPCS: 90471; 90656 ==